=== PATIENT | male | born 1985 | race Caucasian/White ===

== ENCOUNTER 2021-04-25 18:06 | Inpatient (IN) | payer OTHER, SELFPAY ==
[2021-04-25] VITALS (10 sets, daily range): BP systolic 101–136; BP diastolic 60–81; PULSE 146–153; RESP 16–27; TEMP 37–37.2; O2SAT 95–100; BMI 21.5
--- NOTE | ~2021-04-25 | XR_ITS ---
EXAMINATION: XR CHEST CLINICAL INFORMATION: Question aspiration COMPARISON: None TECHNIQUE: Frontal view of the chest was obtained. FINDINGS: No significant abnormality is noted involving the heart, lungs, mediastinum, bony thorax or soft tissues. XR/XR chest 1V IMPRESSION: Unremarkable examination.
--- NOTE | ~2021-04-25 | CT_ITS ---
EXAMINATION: CT CHEST, ABDOMEN AND PELVIS WITHOUT CONTRAST CLINICAL INFORMATION: Reason for Exam ams COMPARISON: No pertinent prior studies are available for comparison. TECHNIQUE: Multidetector volumetric imaging was performed from the thoracic inlet through the pubic symphysis without IV contrast. Sagittal and coronal reformatted images were obtained on the technologist's workstation. This CT examination was performed using dose optimization techniques as appropriate, variously including the following: *Automated exposure control *Adjustment of mA and/or kV according to patient size (this includes techniques or standardized protocols for targeted exams where dose is matched to indication/reason for exam; i.e. extremities or head) *Use of iterative reconstruction technique DLP: 854 mGy-cm FINDINGS: CHEST: Lung: The lungs are clear without focal opacity or nodule. Some minimal right basilar atelectasis is present. Mediastinum: The mediastinum is unremarkable. The esophagus is fluid-filled. The central vascular structures are unremarkable. No hilar or mediastinal lymphadenopathy. Pericardium/Pleura: No significant effusion. No pleural mass or thickening. Chest Wall/Axilla: Unremarkable ABDOMEN/PELVIS: Peritoneal Space: No significant free air or free fluid identified. Liver, Gallbladder, Biliary Tree: The liver is enlarged measuring just under 19 cm in greatest length and demonstrates decreased attenuation consistent with hepatic steatosis. Normal in size, shape, and attenuation. No focal hepatic lesion or biliary ductal dilatation is present. The gallbladder is unremarkable with no evidence of radiopaque gallstones, gallbladder wall thickening, or obvious pericholecystic inflammatory changes. Pancreas: Unremarkable Spleen: Unremarkable Adrenal Glands: Unremarkable Kidneys and Ureters: The kidneys are normal in size, shape, and attenuation. No hydronephrosis, hydroureter, or calculi seen. No perinephric stranding. Bladder: Regan catheter is present in an empty bladder. Gastrointestinal Tract: There is thickening of the duodenum with some mild periduodenal inflammatory change possibly suggesting duodenitis. There is no evidence of perforation or periduodenal abscess. The small and large bowel are unremarkable. The appendix is unremarkable. Abdominal Wall: No significant hernia is appreciated. Lymph Nodes: Some small gastrohepatic ligament lymph nodes are seen the largest measuring 1.7 x 0.8 cm (13:195). No retroperitoneal lymphadenopathy. Vascular: The aorta appears normal.. The IVC appears unremarkable. PELVIC VISCERA: Unremarkable OSSEUS STRUCTURES: Mild degenerative changes are noted in the spine. No bony destructive lesions are seen. CT/CT abdomen pelvis wo con IMPRESSION: Enlarged fatty liver. Thickening of the duodenum with some mild periduodenal inflammatory change suggestive of duodenitis or possibly duodenal ulcer disease. Fleischner guidelines were followed.
--- NOTE | ~2021-04-25 | CT_ITS ---
EXAMINATION: CT HEAD WITHOUT CONTRAST CLINICAL INFORMATION: Altered mental status COMPARISON: None TECHNIQUE: Contiguous axial imaging was performed from the skull base to vertex without intravenous administration of contrast. This CT examination was performed using dose optimization techniques as appropriate, variously including the following: *Automated exposure control *Adjustment of mA and/or kV according to patient size (this includes techniques or standardized protocols for targeted exams where dose is matched to indication/reason for exam; i.e. extremities or head) *Use of iterative reconstruction technique DLP: 736 mGy-cm FINDINGS: No intra-axial or extra-axial hemorrhage. No acute territorial infarct. Ventricles and sulci appear normal. Preservation of baird-white matter differentiation. No mass, mass effect, or midline shift. No fracture. The mastoid air cells and visualized paranasal sinuses are clear. CT/CT head/brain wo con IMPRESSION: No acute intracranial pathology.
--- NOTE | 2021-04-25 18:27 | ECG_ITS ---
Test Reason : etoh Blood Pressure : / mmHG Vent. Rate : 149 BPM Atrial Rate : 153 BPM P-R Int : 096 ms QRS Dur : 078 ms QT Int : 348 ms P-R-T Axes : 000 071 057 degrees QTc Int : 548 ms Sinus tachycardia with short [place] Otherwise normal ECG No previous ECGs available Referred By: Sandy Morrell Electronically Signed By:Ryan Molina
--- NOTE | 2021-04-25 18:27 | ED_ITS ---
HPI - Alcohol General Chief Complaint: ETOH/Substance Use Stated Complaint: Multiple Complaints Time Seen by Provider: 04/25/21 21:10 Source: patient and EMS Mode of arrival: EMS Limitations: altered mental status History of Present Illness HPI narrative: 36-year-old male presents via EMS for evaluation. His friend called EMS to report that the patient was in distress, has vomit all over his house, multiple bottles of hard alcohol throughout his home. Patient is able to answer simple questions and follow simple directions but is a poor historian. Patient states that he feels like he is dying. MD complaint: alcohol withdrawal and alcohol dependence Last drink: Hours (ago) Chronic alcohol use: Yes Previous visits for alcohol intoxication: No Associated symptoms: nausea, vomiting, tremors and hematemesis Treatments prior to arrival: none Related Data Home Medications Medication Instructions Recorded Confirmed dextroamphetamine-amphetamine 20 0 - 3 tab PO DAILY PRN 04/25/21 04/25/21 mg tablet lorazepam 1 mg tablet 1 tab PO DAILY PRN 04/25/21 04/25/21 sildenafil (pulm.hypertension) 20 3 tab PO DAILY PRN 04/25/21 04/25/21 mg tablet trazodone 100 mg tablet 0 - 3 tab PO BEDTIME 04/25/21 04/25/21 Allergies Allergy/AdvReac Type Severity Reaction Status Date / Time No Known Allergies Allergy Verified 04/25/21 18:27 Review of Systems Review of Systems: Yes Unobtainable due to mental condition and Unobtainable due to mental status PMFSH Past Medical History Attestation statement: The following information was validated with the patient. Source: old records reviewed Medical History Anxiety Depressed Social History Social History Advance Directives: No Advance Directives Information Provided: No Physical Exam ED Vital Signs: Vital Signs - 24 hr 04/25/21 18:16 04/25/21 18:49 04/25/21 19:25 Temperature 98.6 F 98.8 F Pulse Rate 153 H 151 H 148 H Respiratory Rate 22 H 22 H 27 H Blood Pressure 120/73 104/61 101/68 Pulse Oximetry 97 97 97 04/25/21 20:14 04/25/21 21:12 04/25/21 21:23 Temperature 98.9 F Pulse Rate 148 H 150 H 153 H Respiratory Rate 20 16 27 H Blood Pressure 117/75 133/76 124/81 Pulse Oximetry 99 96 95 04/25/21 22:07 04/25/21 22:56 04/25/21 23:05 Temperature Pulse Rate 148 H 150 H 146 H Respiratory Rate 20 23 H 23 H Blood Pressure 132/76 130/71 130/67 Pulse Oximetry 99 97 100 BMI result Body Mass Index 21.5 Appearance: Alert. Oriented to self. Severe distress. Unkempt. Eyes: Pupils equal, round and reactive to light. Sclera nonicteric. ENT: Pharynx normal. Neck: Normal inspection. Neck supple. CVS: Tachycardic heart rate and rhythm. Pulses normal. Respiratory: No respiratory distress. Breath sounds normal. Abdomen: Soft and nontender. Skin: Skin warm and dry. Normal skin color. Normal skin turgor. Extremities: No lower extremity edema. Moves all extremities spontaneously. Neuro: No motor deficit. No sensory deficit. Cranial nerves 2-12 intact. Course Course Course Narrative: 36-year-old male presents via EMS, altered mental status most likely due to EtOH withdrawal, encephalopathy. Patient is answering simple questions appropriately. 19:00 patient continues tachycardia 140, blood pressure 131/80 to the right arm. He is alert and oriented to self at this time. Able to follow simple commands. Will order 2nd dose of Ativan 2 mg IV push. 21:10 labs indicate alcoholic ketoacidosis. ETOH 303, lactic acid 8.8, WBC 25.6, H&H 15.1/45.7, bicarb 7, anion gap 32, BUN 27. Lactated Ringer's switch t o D5 half normal saline bolus. Patient has had 1 L of saline and 1 L lactated Ringer's. Abnormal lab values most likely due to EtOH withdrawal, alcoholic encephalopathy versus alcohol acidosis. Multiple discussions with twine reeling machine operator, ICU PA, with multiple interventions. 23:36 repeat discussion with twine reeling machine operator, plan of care is to admit to ICU for lactic acidosis, ETOH withdrawal. Consultations Consultation #1: aRcheal Time: 21:30 Consultation #2: Racheal Time: 23:39 MDM - Alcohol Differential Diagnosis Differential diagnosis: Likely alcohol dependence, alcohol withdrawal delirium and hypomagnesemia Medical Records Attestation: I reviewed the patient's medical records. Lab Data Attestation: I reviewed the patient's lab results. Result diagrams: 04/25/21 20:38 04/25/21 22:59 Labs: Lab Results 04/25/21 04/25/21 04/25/21 Range/Units 19:08 19:09 19:10 WBC (4.8-10.8) X10*3/uL RBC (4.60-5.80) X10*6/uL Hgb (14.0-18.0) g/dl Hct (42.0-52.0) % MCV (80.0-98.0) fL MCH (27.0-33.0) pg MCHC (31.0-36.0) g/dl RDW (11.0-16.0) % Plt Count (160-400) X10*3/uL MPV (9.4-12.4) fL Immature Gran % (Auto) (0.0-0.4) % Neut % (Auto) (45-73) % Lymph % (Auto) (20-40) % [place] % (Auto) (2-11) % Eos % (Auto) (0-4) % Baso % (Auto) (0-2) % Lymph # (Auto) (1.2-4.9) X10*3/uL [place] # (Auto) (0.1-1.2) X10*3/uL Eos # (Auto) (0.0-0.4) X10*3/uL Baso # (Auto) (0.0-0.2) X10*3/uL Abs Immat Gran (auto) (0.00-0.03) X10*3/uL Absolute Neuts (auto) (2.0-8.3) x10*3/uL Absolute Nucleated RBC (0.0-0.012) X10*3/uL Nucleated RBC % (auto) (0.0-0.2) /100WBC Smear Tech's Comments PT 10.8 (9.9-13.0) SEC INR 1.0 (0.9-1.1) APTT 22.3 L (24.1-38.0) SEC VBG pH (7.32-7.43) VBG pCO2 mmHg VBG pO2 mmHg VBG HCO3 (22-26) mmol/L VBG O2 Saturation % VBG Base Excess mmol/L Sodium (135-145) mmol/L Potassium (3.3-5.1) mmol/L Chloride (96-108) mmol/L Carbon Dioxide (22-29) mmol/L Anion Gap (12-20) BUN (9-16) mg/dL Creatinine (0.5-1.4) mg/dL Estim Creat Clear Calc Estimated GFR POC Glucose 153 H (60-115) mg/dL Random Glucose (60-115) mg/dL Osmolality (281-305) mosm/kg Lactic Acid (0.5-2.0) mmol/L Lactic Acid F/U @ 2Hr (0.5-2.0) mmol/L Calcium (8.4-10.2) mg/dL Magnesium (1.6-2.6) mg/dL Total Bilirubin (0.0-1.0) mg/dL Direct Bilirubin (0.0-0.5) mg/dL AST (5-37) U/L ALT (0-40) U/L Alkaline Phosphatase (39-117) U/L Ammonia (13-55) umol/L Troponin I High Sens (<3.5-35.0) ng/L B-Natriuretic Peptide (<100) pg/mL Total Protein (6.5-8.0) g/dL Albumin (3.5-5.0) g/dL Lipase (8-78) U/L Urine Color Urine Appearance Urine pH (5.0-8.0) Ur Specific [place] (1.005-1.025) Urine Protein (NEG-TRACE) MG/DL Urine Glucose (UA) (NEG) MG/DL Urine Ketones (NEG) MG/DL Urine Blood (NEG) Urine Nitrite (NEG) Ur Leukocyte Esterase (NEG) Urine RBC (0) /HPF Urine WBC (0-4) /HPF Ur Squamous Epith Cells /LPF Urine Bacteria /LPF Hyaline Casts /LPF Granular Casts /LPF Urine Mucus /LPF Urine Osmolality (373-1093) mosm/kg Salicylates (15-30) mg/dL Urine Opiates Screen (Not Detect) Urine Fentanyl Screen (Not Detect) Acetaminophen (<30) mcg/mL Ur Barbiturates Screen (Not Detect) Ur Phencyclidine Scrn (Not Detect) Ur Amphetamines Screen (Not Detect) U Benzodiazepines Scrn (Not Detect) Urine Cocaine Screen (Not Detect) U Marijuana (THC) Screen (Not Detect) Ethyl Alcohol 303 H* mg/dL Acetone, Qual (Negative) COVID-19 ([facility]ERT) (Negative) COVID-19 Clin Com 04/25/21 04/25/21 04/25/21 Range/Units 20:27 20:38 20:38 WBC 25.6 H (4.8-10.8) X10*3/uL RBC 4.40 L (4.60-5.80) X10*6/uL Hgb 15.1 (14.0-18.0) g/dl Hct 45.7 (42.0-52.0) % MCV 103.9 H (80.0-98.0) fL MCH 34.3 H (27.0-33.0) pg MCHC 33.0 (31.0-36.0) g/dl RDW 13.2 (11.0-16.0) % Plt Count 423 H (160-400) X10*3/uL MPV 9.4 (9.4-12.4) fL Immature Gran % (Auto) 0.5 H (0.0-0.4) % Neut % (Auto) 90.4 H (45-73) % Lymph % (Auto) 2.3 L (20-40) % [place] % (Auto) 6.7 (2-11) % Eos % (Auto) 0.0 (0-4) % Baso % (Auto) 0.1 (0-2) % Lymph # (Auto) 0.6 L (1.2-4.9) X10*3/uL [place] # (Auto) 1.7 H (0.1-1.2) X10*3/uL Eos # (Auto) 0.0 (0.0-0.4) X10*3/uL Baso # (Auto) 0.0 (0.0-0.2) X10*3/uL Abs Immat Gran (auto) 0.13 H (0.00-0.03) X10*3/uL Absolute Neuts (auto) 23.1 H (2.0-8.3) x10*3/uL Absolute Nucleated RBC 0.000 (0.0-0.012) X10*3/uL Nucleated RBC % (auto) 0.0 (0.0-0.2) /100WBC Smear Tech's Comments VERIFIED PT (9.9-13.0) SEC INR (0.9-1.1) APTT (24.1-38.0) SEC VBG pH (7.32-7.43) VBG pCO2 mmHg VBG pO2 mmHg VBG HCO3 (22-26) mmol/L VBG O2 Saturation % VBG Base Excess mmol/L Sodium 136 (135-145) mmol/L Potassium 4.4 (3.3-5.1) mmol/L Chloride 101 (96-108) mmol/L Carbon Dioxide 7 L* (22-29) mmol/L Anion Gap 32 H (12-20) BUN 27 H (9-16) mg/dL Creatinine 0.95 (0.5-1.4) mg/dL Estim Creat Clear Calc 101.4 Estimated GFR > 60 POC Glucose (60-115) mg/dL Random Glucose 158 H (60-115) mg/dL Osmolality (281-305) mosm/kg Lactic Acid (0.5-2.0) mmol/L Lactic Acid F/U @ 2Hr (0.5-2.0) mmol/L Calcium 8.1 L (8.4-10.2) mg/dL Magnesium 2.1 (1.6-2.6) mg/dL Total Bilirubin 0.6 (0.0-1.0) mg/dL Direct Bilirubin 0.3 (0.0-0.5) mg/dL AST 66 H (5-37) U/L ALT 50 H (0-40) U/L Alkaline Phosphatase 71 (39-117) U/L Ammonia (13-55) umol/L Troponin I High Sens (<3.5-35.0) ng/L B-Natriuretic Peptide (<100) pg/mL Total Protein 5.9 L (6.5-8.0) g/dL Albumin 3.7 (3.5-5.0) g/dL Lipase 29 (8-78) U/L Urine Color Urine Appearance Urine pH (5.0-8.0) Ur Specific [place] (1.005-1.025) Urine Protein (NEG-TRACE) MG/DL Urine Glucose (UA) (NEG) MG/DL Urine Ketones (NEG) MG/DL Urine Blood (NEG) Urine Nitrite (NEG) Ur Leukocyte Esterase (NEG) Urine RBC (0) /HPF Urine WBC (0-4) /HPF Ur Squamous Epith Cells /LPF Urine Bacteria /LPF Hyaline Casts /LPF Granular Casts /LPF Urine Mucus /LPF Urine Osmolality (373-1093) mosm/kg Salicylates < 5.0 L (15-30) mg/dL Urine Opiates Screen (Not Detect) Urine Fentanyl Screen (Not Detect) Acetaminophen < 1 (<30) mcg/mL Ur Barbiturates Screen (Not Detect) Ur Phencyclidine Scrn (Not Detect) Ur Amphetamines Screen (Not Detect) U Benzodiazepines Scrn (Not Detect) Urine Cocaine Screen (Not Detect) U Marijuana (THC) Screen (Not Detect) Ethyl Alcohol mg/dL Acetone, Qual Negative (Negative) COVID-19 (ROBERT) Negative (Negative) COVID-19 Clin Com See Note 04/25/21 04/25/21 04/25/21 Range/Units 20:38 20:38 20:38 WBC (4.8-10.8) X10*3/uL RBC (4.60-5.80) X10*6/uL Hgb (14.0-18.0) g/dl Hct (42.0-52.0) % MCV (80.0-98.0) fL MCH (27.0-33.0) pg MCHC (31.0-36.0) g/dl RDW (11.0-16.0) % Plt Count (160-400) X10*3/uL MPV (9.4-12.4) fL Immature Gran % (Auto) (0.0-0.4) % Neut % (Auto) (45-73) % Lymph % (Auto) (20-40) % [place] % (Auto) (2-11) % Eos % (Auto) (0-4) % Baso % (Auto) (0-2) % Lymph # (Auto) (1.2-4.9) X10*3/uL [place] # (Auto) (0.1-1.2) X10*3/uL Eos # (Auto) (0.0-0.4) X10*3/uL Baso # (Auto) (0.0-0.2) X10*3/uL Abs Immat Gran (auto) (0.00-0.03) X10*3/uL Absolute Neuts (auto) (2.0-8.3) x10*3/uL Absolute Nucleated RBC (0.0-0.012) X10*3/uL Nucleated RBC % (auto) (0.0-0.2) /100WBC Smear Tech's Comments PT (9.9-13.0) SEC INR (0.9-1.1) APTT (24.1-38.0) SEC VBG pH (7.32-7.43) VBG pCO2 mmHg VBG pO2 mmHg VBG HCO3 (22-26) mmol/L VBG O2 Saturation % VBG Base Excess mmol/L Sodium (135-145) mmol/L Potassium (3.3-5.1) mmol/L Chloride (96-108) mmol/L Carbon Dioxide (22-29) mmol/L Anion Gap (12-20) BUN (9-16) mg/dL Creatinine (0.5-1.4) mg/dL Estim Creat Clear Calc Estimated GFR POC Glucose (60-115) mg/dL Random Glucose (60-115) mg/dL Osmolality (281-305) mosm/kg Lactic Acid 8.8 H* (0.5-2.0) mmol/L Lactic Acid F/U @ 2Hr (0.5-2.0) mmol/L Calcium (8.4-10.2) mg/dL Magnesium (1.6-2.6) mg/dL Total Bilirubin (0.0-1.0) mg/dL Direct Bilirubin (0.0-0.5) mg/dL AST (5-37) U/L ALT (0-40) U/L Alkaline Phosphatase (39-117) U/L Ammonia 50 (13-55) umol/L Troponin I High Sens < 3.5 (<3.5-35.0) ng/L B-Natriuretic Peptide 14 (<100) pg/mL Total Protein (6.5-8.0) g/dL Albumin (3.5-5.0) g/dL Lipase (8-78) U/L Urine Color Urine Appearance Urine pH (5.0-8.0) Ur Specific [place] (1.005-1.025) Urine Protein (NEG-TRACE) MG/DL Urine Glucose (UA) (NEG) MG/DL Urine Ketones (NEG) MG/DL Urine Blood (NEG) Urine Nitrite (NEG) Ur Leukocyte Esterase (NEG) Urine RBC (0) /HPF Urine WBC (0-4) /HPF Ur Squamous Epith Cells /LPF Urine Bacteria /LPF Hyaline Casts /LPF Granular Casts /LPF Urine Mucus /LPF Urine Osmolality (373-1093) mosm/kg Salicylates (15-30) mg/dL Urine Opiates Screen (Not Detect) Urine Fentanyl Screen (Not Detect) Acetaminophen (<30) mcg/mL Ur Barbiturates Screen (Not Detect) Ur Phencyclidine Scrn (Not Detect) Ur Amphetamines Screen (Not Detect) U Benzodiazepines Scrn (Not Detect) Urine Cocaine Screen (Not Detect) U Marijuana (THC) Screen (Not Detect) Ethyl Alcohol mg/dL Acetone, Qual (Negative) COVID-19 ([facility]OBERT) (Negative) COVID-19 Clin Com 04/25/21 04/25/21 04/25/21 Range/Units 20:38 21:19 21:29 WBC (4.8-10.8) X10*3/uL RBC (4.60-5.80) X10*6/uL Hgb (14.0-18.0) g/dl Hct (42.0-52.0) % MCV (80.0-98.0) fL MCH (27.0-33.0) pg MCHC (31.0-36.0) g/dl RDW (11.0-16.0) % Plt Count (160-400) X10*3/uL MPV (9.4-12.4) fL Immature Gran % (Auto) (0.0-0.4) % Neut % (Auto) (45-73) % Lymph % (Auto) (20-40) % [place] % (Auto) (2-11) % Eos % (Auto) (0-4) % Baso % (Auto) (0-2) % Lymph # (Auto) (1.2-4.9) X10*3/uL [place] # (Auto) (0.1-1.2) X10*3/uL Eos # (Auto) (0.0-0.4) X10*3/uL Baso # (Auto) (0.0-0.2) X10*3/uL Abs Immat Gran (auto) (0.00-0.03) X10*3/uL Absolute Neuts (auto) (2.0-8.3) x10*3/uL Absolute Nucleated RBC (0.0-0.012) X10*3/uL Nucleated RBC % (auto) (0.0-0.2) /100WBC Smear Tech's Comments PT (9.9-13.0) SEC INR (0.9-1.1) APTT (24.1-38.0) SEC VBG pH 7.28 L (7.32-7.43) VBG pCO2 24 mmHg VBG pO2 89 mmHg VBG HCO3 11 L (22-26) mmol/L VBG O2 Saturation 96.0 % VBG Base Excess -12.7 mmol/L Sodium (135-145) mmol/L Potassium (3.3-5.1) mmol/L Chloride (96-108) mmol/L Carbon Dioxide (22-29) mmol/L Anion Gap (12-20) BUN (9-16) mg/dL Creatinine (0.5-1.4) mg/dL Estim Creat Clear Calc Estimated GFR POC Glucose (60-115) mg/dL Random Glucose (60-115) mg/dL Osmolality 373 H (281-305) mosm/kg Lactic Acid (0.5-2.0) mmol/L Lactic Acid F/U @ 2Hr (0.5-2.0) mmol/L Calcium (8.4-10.2) mg/dL Magnesium (1.6-2.6) mg/dL Total Bilirubin (0.0-1.0) mg/dL Direct Bilirubin (0.0-0.5) mg/dL AST (5-37) U/L ALT (0-40) U/L Alkaline Phosphatase (39-117) U/L Ammonia 47 (13-55) umol/L Troponin I High Sens (<3.5-35.0) ng/L B-Natriuretic Peptide (<100) pg/mL Total Protein (6.5-8.0) g/dL Albumin (3.5-5.0) g/dL Lipase (8-78) U/L Urine Color Urine Appearance Urine pH (5.0-8.0) Ur Specific [place] (1.005-1.025) Urine Protein (NEG-TRACE) MG/DL Urine Glucose (UA) (NEG) MG/DL Urine Ketones (NEG) MG/DL Urine Blood (NEG) Urine Nitrite (NEG) Ur Leukocyte Esterase (NEG) Urine RBC (0) /HPF Urine WBC (0-4) /HPF Ur Squamous Epith Cells /LPF Urine Bacteria /LPF Hyaline Casts /LPF Granular Casts /LPF Urine Mucus /LPF Urine Osmolality (373-1093) mosm/kg Salicylates (15-30) mg/dL Urine Opiates Screen (Not Detect) Urine Fentanyl Screen (Not Detect) Acetaminophen (<30) mcg/mL Ur Barbiturates Screen (Not Detect) Ur Phencyclidine Scrn (Not Detect) Ur Amphetamines Screen (Not Detect) U Benzodiazepines Scrn (Not Detect) Urine Cocaine Screen (Not Detect) U Marijuana (THC) Screen (Not Detect) Ethyl Alcohol mg/dL Acetone, Qual (Negative) COVID-19 ([facility]OBERT) (Negative) COVID-19 Clin Com 04/25/21 04/25/21 04/25/21 Range/Units 21:39 21:39 21:40 WBC (4.8-10.8) X10*3/uL RBC (4.60-5.80) X10*6/uL Hgb (14.0-18.0) g/dl Hct (42.0-52.0) % MCV (80.0-98.0) fL MCH (27.0-33.0) pg MCHC (31.0-36.0) g/dl RDW (11.0-16.0) % Plt Count (160-400) X10*3/uL MPV (9.4-12.4) fL Immature Gran % (Auto) (0.0-0.4) % Neut % (Auto) (45-73) % Lymph % (Auto) (20-40) % [place] % (Auto) (2-11) % Eos % (Auto) (0-4) % Baso % (Auto) (0-2) % Lymph # (Auto) (1.2-4.9) X10*3/uL [place] # (Auto) (0.1-1.2) X10*3/uL Eos # (Auto) (0.0-0.4) X10*3/uL Baso # (Auto) (0.0-0.2) X10*3/uL Abs Immat Gran (auto) (0.00-0.03) X10*3/uL Absolute Neuts (auto) (2.0-8.3) x10*3/uL Absolute Nucleated RBC (0.0-0.012) X10*3/uL Nucleated RBC % (auto) (0.0-0.2) /100WBC Smear Tech's Comments PT (9.9-13.0) SEC INR (0.9-1.1) APTT (24.1-38.0) SEC VBG pH (7.32-7.43) VBG pCO2 mmHg VBG pO2 mmHg VBG HCO3 (22-26) mmol/L VBG O2 Saturation % VBG Base Excess mmol/L Sodium (135-145) mmol/L Potassium (3.3-5.1) mmol/L Chloride (96-108) mmol/L Carbon Dioxide (22-29) mmol/L Anion Gap (12-20) BUN (9-16) mg/dL Creatinine (0.5-1.4) mg/dL Estim Creat Clear Calc Estimated GFR POC Glucose (60-115) mg/dL Random Glucose (60-115) mg/dL Osmolality (281-305) mosm/kg Lactic Acid (0.5-2.0) mmol/L Lactic Acid F/U @ 2Hr (0.5-2.0) mmol/L Calcium (8.4-10.2) mg/dL Magnesium (1.6-2.6) mg/dL Total Bilirubin (0.0-1.0) mg/dL Direct Bilirubin (0.0-0.5) mg/dL AST (5-37) U/L ALT (0-40) U/L Alkaline Phosphatase (39-117) U/L Ammonia (13-55) umol/L Troponin I High Sens (<3.5-35.0) ng/L B-Natriuretic Peptide (<100) pg/mL Total Protein (6.5-8.0) g/dL Albumin (3.5-5.0) g/dL Lipase (8-78) U/L Urine Color YELLOW Urine Appearance CLEAR Urine pH 6.0 (5.0-8.0) Ur Specific [place] >= 1.030 H (1.005-1.025) Urine Protein NEG (NEG-TRACE) MG/DL Urine Glucose (UA) NEG (NEG) MG/DL Urine Ketones 40 (NEG) MG/DL Urine Blood TRACE (NEG) Urine Nitrite NEG (NEG) Ur Leukocyte Esterase NEG (NEG) Urine RBC 5-9 H (0) /HPF Urine WBC 1-4 (0-4) /HPF Ur Squamous Epith Cells 1+ /LPF Urine Bacteria 1+ /LPF Hyaline Casts 5-9 /LPF Granular Casts 0-2 /LPF Urine Mucus 2+ /LPF Urine Osmolality 629 (373-1093) mosm/kg Salicylates (15-30) mg/dL Urine Opiates Screen Not Detected (Not Detect) Urine Fentanyl Screen Not Detected (Not Detect) Acetaminophen (<30) mcg/mL Ur Barbiturates Screen Not Detected (Not Detect) Ur Phencyclidine Scrn Not Detected (Not Detect) Ur Amphetamines Screen Not Detected (Not Detect) U Benzodiazepines Scrn Not Detected (Not Detect) Urine Cocaine Screen Not Detected (Not Detect) U Marijuana (THC) Screen Not Detected (Not Detect) Ethyl Alcohol mg/dL Acetone, Qual (Negative) COVID-19 ([facility]OBERT) (Negative) COVID-19 Clin Com 04/25/21 04/25/21 Range/Units 22:59 22:59 WBC (4.8-10.8) X10*3/uL RBC (4.60-5.80) X10*6/uL Hgb (14.0-18.0) g/dl Hct (42.0-52.0) % MCV (80.0-98.0) fL MCH (27.0-33.0) pg MCHC (31.0-36.0) g/dl RDW (11.0-16.0) % Plt Count (160-400) X10*3/uL MPV (9.4-12.4) fL Immature Gran % (Auto) (0.0-0.4) % Neut % (Auto) (45-73) % Lymph % (Auto) (20-40) % [place] % (Auto) (2-11) % Eos % (Auto) (0-4) % Baso % (Auto) (0-2) % Lymph # (Auto) (1.2-4.9) X10*3/uL [place] # (Auto) (0.1-1.2) X10*3/uL Eos # (Auto) (0.0-0.4) X10*3/uL Baso # (Auto) (0.0-0.2) X10*3/uL Abs Immat Gran (auto) (0.00-0.03) X10*3/uL Absolute Neuts (auto) (2.0-8.3) x10*3/uL Absolute Nucleated RBC (0.0-0.012) X10*3/uL Nucleated RBC % (auto) (0.0-0.2) /100WBC Smear Tech's Comments PT (9.9-13.0) SEC INR (0.9-1.1) APTT (24.1-38.0) SEC VBG pH (7.32-7.43) VBG pCO2 mmHg VBG pO2 mmHg VBG HCO3 (22-26) mmol/L VBG O2 Saturation % VBG Base Excess mmol/L Sodium 135 (135-145) mmol/L Potassium 3.9 (3.3-5.1) mmol/L Chloride 100 (96-108) mmol/L Carbon Dioxide 19 L (22-29) mmol/L Anion Gap 20 (12-20) BUN 25 H (9-16) mg/dL Creatinine 0.80 (0.5-1.4) mg/dL Estim Creat Clear Calc 120.4 Estimated GFR > 60 POC Glucose (60-115) mg/dL Random Glucose 301 H D (60-115) mg/dL Osmolality (281-305) mosm/kg Lactic Acid (0.5-2.0) mmol/L Lactic Acid F/U @ 2Hr 5.4 H* (0.5-2.0) mmol/L Calcium 7.3 L D (8.4-10.2) mg/dL Magnesium (1.6-2.6) mg/dL Total Bilirubin (0.0-1.0) mg/dL Direct Bilirubin (0.0-0.5) mg/dL AST (5-37) U/L ALT (0-40) U/L Alkaline Phosphatase (39-117) U/L Ammonia (13-55) umol/L Troponin I High Sens (<3.5-35.0) ng/L B-Natriuretic Peptide (<100) pg/mL Total Protein (6.5-8.0) g/dL Albumin (3.5-5.0) g/dL Lipase (8-78) U/L Urine Color Urine Appearance Urine pH (5.0-8.0) Ur Specific [place] (1.005-1.025) Urine Protein (NEG-TRACE) MG/DL Urine Glucose (UA) (NEG) MG/DL Urine Ketones (NEG) MG/DL Urine Blood (NEG) Urine Nitrite (NEG) Ur Leukocyte Esterase (NEG) Urine RBC (0) /HPF Urine WBC (0-4) /HPF Ur Squamous Epith Cells /LPF Urine Bacteria /LPF Hyaline Casts /LPF Granular Casts /LPF Urine Mucus /LPF Urine Osmolality (373-1093) mosm/kg Salicylates (15-30) mg/dL Urine Opiates Screen (Not Detect) Urine Fentanyl Screen (Not Detect) Acetaminophen (<30) mcg/mL Ur Barbiturates Screen (Not Detect) Ur Phencyclidine Scrn (Not Detect) Ur Amphetamines Screen (Not Detect) U Benzodiazepines Scrn (Not Detect) Urine Cocaine Screen (Not Detect) U Marijuana (THC) Screen (Not Detect) Ethyl Alcohol mg/dL Acetone, Qual (Negative) COVID-19 ([facility]OBERT) (Negative) COVID-19 Clin Com Imaging Data Chest x-ray: Attestation: I personally reviewed and interpreted this imaging study as follows: Radiologist's impression: EXAMINATION: XR CHEST CLINICAL INFORMATION: Question aspiration COMPARISON: None TECHNIQUE: Frontal view of the chest was obtained. FINDINGS: No significant abnormality is noted involving the heart, lungs, mediastinum, bony thorax or soft tissues. XR/XR chest 1V IMPRESSION: Unremarkable examination. CT scan - head: Attestation: I personally reviewed and interpreted this imaging study as follows: Radiologist's impression: EXAMINATION: CT HEAD WITHOUT CONTRAST CLINICAL INFORMATION: Altered mental status? COMPARISON: None TECHNIQUE: Contiguous axial imaging was performed from the skull base to vertex without intravenous administration of contrast. This CT examination was performed using dose optimization techniques as appropriate, variously including the following: *Automated exposure control *Adjustment of mA and/or kV according to patient size (this includes techniques or standardized protocols for targeted exams where dose is matched to indication/reason for exam; i.e. extremities or head) *Use of iterative reconstruction technique DLP: 736 mGy-cm FINDINGS: No intra-axial or extra-axial hemorrhage. No acute territorial infarct. Ventricles and sulci appear normal. Preservation of baird-white matter differentiation. No mass, mass effect, or midline shift. No fracture. The mastoid air cells and visualized paranasal sinuses are clear. ? CT/CT head/brain wo con IMPRESSION: No acute intracranial pathology. ECG Data ECG #1: Attestation: I personally reviewed and interpreted this ECG as follows: ECG interpretation date: 04/25/21 ECG interpretation time: 18:35 Prior ECG tracings: not available for review Interpretation: Vent. rate 149 BPM DC interval 96 ms QRS duration 78 ms QT/QTc 348/548 ms P-R-T axes * 71 57 Sinus tachycardia with short DC Otherwise normal ECG No previous ECGs available Critical Care Time Critical Care Time Critical Care Time: Yes Total Critical Care Time: 120 Attestation: I have personally provided critical care time exclusive of time spent on separately billable procedures. Time includes review of laboratory data, radiology results, discussion with consultants, and monitoring for potential decompensation. Interventions were performed as documented. Discharge Plan Discharge Clinical Impression: Alcohol withdrawal syndrome, Alcohol withdrawal delirium, Alcoholic ketoacidosis Prescriptions: No Action trazodone 100 mg tablet 0 - 3 tab PO BEDTIME 0RF dextroamphetamine-amphetamine 20 mg tablet 0 - 3 tab PO DAILY PRN (Reason: Agitation) 0RF lorazepam 1 mg tablet 1 tab PO DAILY PRN (Reason: anxiety attack) 0RF sildenafil (pulm.hypertension) 20 mg tablet 3 tab PO DAILY PRN (Reason: Sexual Activity) 0RF
[2021-04-25] MEDS: LORazepam 2 MG/ML VIAL 1 MG IVPUSH ×2 (18:36→18:37)
[2021-04-25] MEDS: 0.9 % Sodium Chloride 1,000 ML 999 ML IVCONT (18:36)
[2021-04-25] MEDS: ondansetron HCL 4 MG/2 ML VIAL IVPUSH (18:37)
--- NOTE | 2021-04-25 18:38 | PC.NURSE ---
FIELD ENGINEER originally ordered 1mg iv push Ativan for patient. after med pulled change mind and told RN to give 2 mg. additional order placed for 1 mg Ativan iv push. patient given 2 mg from vial pulled in pyxis.
--- NOTE | 2021-04-25 18:56 | PHA.MEDREC ---
Pharmacy Consult ? Medication Reconciliation Pharmacy has completed the medication reconciliation. Patient states he hasn't taken any medications in a few days.
[2021-04-25 19:13] LABS: Glucose, Whole Blood 153 mg/dL (60-115)
[2021-04-25] MEDS: LORazepam 2 MG/ML VIAL IVPUSH (19:23)
[2021-04-25 19:26] LABS: Prothrombin Time 10.8 SEC (9.9-13.0)
[2021-04-25 19:32] LABS: Partial Thromboplastin Time 22.3 SEC (24.1-38.0)
[2021-04-25] MEDS: Lactated Ringers 1,000 ML 999 ML IV ×2 (19:41→23:12)
--- NOTE | 2021-04-25 19:56 | PC.NURSE ---
RN assumed care at 1899, pt alert and oriented x3, confused to date. Pt calm and cooperative, noted to be restless intermittently in bed. CIWA at 190 is 6. Pt had IV in place from EMS per last shift RN. Dex Wilkinson attempted to draw blood work at 1899, some vile's were hemolytic and unsuccessful in obtaining further lab work due to patient being difficult stick. This RN attempted to obtain lab work and unsuccessful due to difficult stick. semiconductor wafers tester Sonia called RN endless track vehicle supervisor for butterfly needles at 1914, none in ER at this time. Butterfly needles brought to ER at 1999, Dex Wilkinson attempting lab draw with butterfly needle at 1999.
[2021-04-25 19:59] LABS: Ethanol 303 mg/dL
[2021-04-25] MEDS: PHENobarbitaL sodium 130 MG/ML VIAL 326 MG IM (20:09)
[2021-04-25 20:43] LABS: Basophils Percent Auto 0.1 % (0-2); Hematocrit 45.7 % (42.0-52.0); Hemoglobin 15.1 g/dl (14.0-18.0); Imm Gran Abs Auto 0.13 X10*3/uL (0.00-0.03); Imm Gran Pct Auto 0.5 % (0.0-0.4); Lymphocytes Absolute Auto 0.6 X10*3/uL (1.2-4.9); Lymphocytes Percent Auto 2.3 % (20-40); MANUAL DIFF FLAG SCAN; Mean Corpuscular Hemoglobin 34.3 pg (27.0-33.0); Mean Corpuscular Volume 103.9 fL (80.0-98.0); Mean Platelet Volume 9.4 fL (9.4-12.4); Monocytes Absolute Auto 1.7 X10*3/uL (0.1-1.2); Monocytes Percent Auto 6.7 % (2-11); Neutrophils Absolute Auto 23.1 x10*3/uL (2.0-8.3); Neutrophils Percent Auto 90.4 % (45-73); Platelet Count 423 X10*3/uL (160-400); Red Cell Distribution Width 13.2 % (11.0-16.0); SCAN SMEAR FLAG 1; White Blood Count 25.6 X10*3/uL (4.8-10.8)
[2021-04-25 20:51] LABS: COVID-19 Test Negative (Negative); IDNOW Serial# 16C4AD1C
[2021-04-25 20:53] LABS: Ammonia 50 umol/L (13-55)
[2021-04-25 21:01] LABS: SLIDE REVIEW VERIFIED
[2021-04-25 21:02] LABS: Alanine Aminotransferase 50 U/L (0-40); Albumin Level 3.7 g/dL (3.5-5.0); Alkaline Phosphatase 71 U/L (39-117); Anion Gap 32 (12-20); Aspartate Amino Transferase 66 U/L (5-37); Bilirubin Direct 0.3 mg/dL (0.0-0.5); Bilirubin Total 0.6 mg/dL (0.0-1.0); Blood Urea Nitrogen 27 mg/dL (9-16); Calcium 8.1 mg/dL (8.4-10.2); Carbon Dioxide 7 mmol/L (22-29); Chloride 101 mmol/L (96-108); Creatinine Clr Calc Pharmacy 101.4; Estimated Glomerular Filt Rate > 60; Glucose Random 158 mg/dL (60-115); Lactic Acid 8.8 mmol/L (0.5-2.0); Lipase 29 U/L (8-78); Magnesium 2.1 mg/dL (1.6-2.6); Potassium 4.4 mmol/L (3.3-5.1); Sodium 136 mmol/L (135-145); Total Protein 5.9 g/dL (6.5-8.0)
[2021-04-25 21:17] LABS: Acetone, serum QL Negative (Negative)
[2021-04-25] MEDS: Sodium Bicarbonate 8.4% 50 MEQ/50 ML SYRINGE IVPUSH ×2 (21:19→22:39)
[2021-04-25] MEDS: Thiamine HCL 500 MG in 0.9 % Sodium Chloride 100 ML 210 MG IV (21:21)
[2021-04-25] MEDS: Dextrose 5 % and 0.45 % NaCl 1,000 ML 999 ML IVCONT (21:27)
[2021-04-25] MEDS: Folic Acid 1 MG TABLET PO (21:30)
[2021-04-25 21:35] LABS: Venous Blood Gas Refer to POC result
[2021-04-25 21:35] LABS: Troponin-I High Sensitivity < 3.5 ng/L (<3.5-35.0)
[2021-04-25 21:37] LABS: VBG Base Excess -12.7 mmol/L; VBG HCO3 11 mmol/L (22-26); VBG pCO2 24 mmHg; VBG pH 7.28 (7.32-7.43); VBG pO2 89 mmHg
[2021-04-25 21:41] LABS: Acetaminophen LAB < 1 mcg/mL (<30); Salicylate < 5.0 mg/dL (15-30)
[2021-04-25 21:44] LABS: B Type Natriuretic Peptide 14 pg/mL (<100)
[2021-04-25 21:50] LABS: Appearance Urine CLEAR; Color Urine YELLOW; Glucose Urine UA NEG (NEG); Leukocyte Esterase Urine NEG (NEG); Nitrite Urine NEG (NEG); Specific Gravity - Urine >= 1.030 (1.005-1.025); UACC Culture Trigger NO; Urine Blood TRACE (NEG); Urine Ketones 40 MG/DL (NEG); Urine Protein NEG (NEG-TRACE)
[2021-04-25 21:53] LABS: Osmolality, Serum 373 mosm/kg (281-305)
[2021-04-25 21:54] LABS: Ammonia 47 umol/L (13-55)
[2021-04-25 22:05] LABS: Osmolality Urine 629 mosm/kg (373-1093)
[2021-04-25 22:06] LABS: Amphetamine Screen Urine Not Detected (Not Detect); Barbiturates, Urine Not Detected (Not Detect); Benzodiazepines Screen Urine Not Detected (Not Detect); Cannabinoid Screen Urine Not Detected (Not Detect); Cocaine Screen Urine Not Detected (Not Detect); Fentanyl, urine Not Detected (Not Detect); Opiate Screen Urine Not Detected (Not Detect); Phencyclidine Screen Urine Not Detected (Not Detect)
--- NOTE | 2021-04-25 22:11 | PC.NURSE ---
PATIENT OUT PUT WAS 1600 ML
--- NOTE | 2021-04-25 22:12 | PC.NURSE ---
PATIENT OUT PUT WAS 1600 ML .
[2021-04-25 22:13] LABS: Bacteria Urine 1+ /LPF; Granular Casts Urine 0-2 /LPF; Mucus Urine 2+ /LPF; Squamous Epithelial Cell Urine 1+ /LPF
[2021-04-25 22:40] LABS: Reflex Lactate? Lactic Acid Added
[2021-04-25] MEDS: Piperacillin Sodium/Tazobactam 3.375 GM in 0.9 % Sodium Chloride 50 ML IV (22:59)
[2021-04-25 23:24] LABS: Anion Gap 20 (12-20); Blood Urea Nitrogen 25 mg/dL (9-16); Calcium 7.3 mg/dL (8.4-10.2); Carbon Dioxide 19 mmol/L (22-29); Chloride 100 mmol/L (96-108); Creatinine Clr Calc Pharmacy 120.4; Estimated Glomerular Filt Rate > 60; Glucose Random 301 mg/dL (60-115); Potassium 3.9 mmol/L (3.3-5.1); Sodium 135 mmol/L (135-145)
[2021-04-25 23:25] LABS: ~Lactic Acid-LAB USE ONLY 5.4 mmol/L (0.5-2.0)
[2021-04-25] MEDS: vancomycin HCL 750 MG in 0.9 % Sodium Chloride 250 ML 265 MG IV (23:43)
[2021-04-25] MEDS: PHENobarbitaL sodium 130 MG/ML VIAL 245 MG IM (23:49)
--- NOTE | 2021-04-25 23:58 | P.HPCC_ITS ---
History of Present Illness Date of Service: 04/25/21 Attending physician on admission: Virginia Springer Chief Complaint: alcohol withdrawal Patient is a 36-year-old male within no known past medical history who was brought in by ambulance after his friend found him in his home, disheveled, vomit all over the place, multiple heart alcohol bottles strewn about his home. Patient is unable to recall when his last drink was but he does state he did have a withdrawal seizure approximately 10 years ago. He is alert and oriented x3 but rambles on with his answers, usually making sense but definitely a little confused. Patient states he feels like he is dying . Patient actively vomi angela once during my exam. In the emergency department, labs showed the patient had a WBC 25.6, APTT 22.3, bicarb 7, serum osmol 373, lactic acid 8.8, ammonia 50, AST 66, ALT 50, urine osmolality 629, acetone negative, ETOH 33, U tox negative, salicylates and acetaminophen negative, UA neg for infection. VBG 7.28/24/89/11/96/-12.7, EKG sinus tach at 149BPM with short [place] 096ms. CIWA 15. CT of the head, chest and abdomen Enlarged fatty liver. Thickening of the duodenum with some mild periduodenal inflammatory change suggestive of duodenitis or possibly duodenal ulcer disease . In the emergency department, patient was giving in 4 mg lorazepam, started on phenobarb protocol, Zofran, 3L LR, 50 meq sodium bicarb, 1 L D5 1/2 NS, 1 mg folic acid, 500 mg thiamine, vanco and Zosyn however patient does not appear sepic. Repeat metabolic panel showed bicarb improved up to 19, lactic acid down to 5.4. Elevated lactic likely 2/2 post ictal period, pt does not appear to be septic, no source of infection. Discussed case with Dr. Springer, he agreed patient should be admitted, he is actively withdrawing although his alcohol level is still very high. Will hold off on intubation and less patient becomes truly delirious, as of now, he is safe to maintain his airway. Will start on Versed drip to control withdrawal symptoms/avoid seizure. Review of Systems Review of Systems: Yes all other systems are reviewed and are negative PMFSH Past Medical History Medical History Anxiety Depressed Social History Social History Household Members: None Housing: House Do you presently have visiting nurse or other home services: No Unable to assess alcohol history related to: Unable to respond Patient Tobacco Use Status: Tobacco use Unknown Use of substances other than those prescribed or required for medical reasons: Unknown Advance Directives: No Advance Directives Information Provided: No Do you have thoughts of harming others: None Do you have a plan to hurt others: No Plan Recently lost weight without trying: Unsure Nutrition Risks: On aspiration precautions Poor oral hygiene: Yes Meds Allergies Allergy/AdvReac Type Severity Reaction Status Date / Time No Known Allergies Allergy Verified 04/25/21 18:27 Active Medications: Current Medications Enoxaparin Sodium (Enoxaparin Sodium 40 Mg/0.4 Ml Syringe) 40 mg SUBCUT Q24H CAROL Lactated Ringer's (Lr) 1,000 mls @ 100 mls/hr IVCONT .Q10H CAROL Midazolam HCl (Versed) 50 mg in 50 mls @ 2 mls/hr IVCONT .Q24H CAROL Medication (No Benzodiazepines) 1 each MISCELLANE DAILY [facility] Ondansetron HCl (Ondansetron Hcl 4 Mg/2 Ml Vial) 4 mg IVPUSH Q8H PRN PRN Reason: Nausea Phenobarbital (Phenobarbital 15 Mg Tablet) 45 mg PO BID [facility] Stop: 04/27/21 21:01 Phenobarbital (Phenobarbital 30 Mg Tablet) 30 mg PO BID [facility] Stop: 04/29/21 21:01 Phenobarbital (Phenobarbital 15 Mg Tablet) 15 mg PO DAILY [facility] Stop: 05/01/21 09:01 Phenobarbital Sodium (Phenobarbital Sodium 130 Mg/Ml Vial) 245 mg IM 0000,[id number] [facility] Stop: 04/26/21 03:01 Last Admin: 04/25/21 23:49 Dose: 245 mg Documented by: Home Medications Medication Instructions Recorded Confirmed Last Taken Type dextroamphetamine-amphetamine 20 0 - 3 tab PO DAILY PRN 04/25/21 04/25/21 Unknown History mg tablet lorazepam 1 mg tablet 1 tab PO DAILY PRN 04/25/21 04/25/21 Unknown History sildenafil (pulm.hypertension) 20 3 tab PO DAILY PRN 04/25/21 04/25/21 Unknown History mg tablet trazodone 100 mg tablet 0 - 3 tab PO BEDTIME 04/25/21 04/25/21 Unknown History Physical Exam Vital Signs: Vital Signs: Last Vital Signs Temp 98.9 F 04/25/21 21:12 Pulse 147 H 04/25/21 23:45 Resp 23 H 04/25/21 23:45 BP 136/71 04/25/21 23:45 Pulse Ox 98 04/25/21 23:45 BMI result Body Mass Index 21.5 Const: General: cooperative, poor hygiene and tired appearing Nutritional Appearance: thin Orientation/consciousness: patient oriented x3 Limita tions: no limitations HENMT: Other: multiple scratches on face and forehead, all healing well, no signs of infection noted. Head: Yes normal to inspection, Yes normocephalic and Yes a traumatic Face and sinus: Yes normal facial exam and Yes face symmetric Eyes: General: appearance normal, both eyes and all related structures Neck: Neck: Yes normal visual inspection and Yes full ROM Resp: Effort & Inspection: able to speak in complete sentences and tachypneic Auscultation: clear to auscultation bilaterally Cardio: Rate: tachycardic Rhythm: regular rhythm Heart sounds: normal S1 and S2 GI: Inspection: Yes normal to inspection Palpation (GI): Soft to palpation and nontender Skin: General skin exam: no rashes or lesions noted Neuro: General: patient oriented x3 Extrem: General: Yes normal to inspection Psych: Appearance: disheveled Attitude: cooperative Thought process: Tangential thought process present Thought content: suicidality and no homicidality Insight: Fair insight present (Psych) Judgement: Fair judgement present (Psych) Results Labs CBC and Chem 7: 04/26/21 05:17 04/26/21 05:17 Labs: Laboratory Results - last 24 hr 04/25/21 04/25/21 04/25/21 19:08 19:09 19:10 MCV MCH MCHC RDW Plt Count MPV Immature Gran % (Auto) Neut % (Auto) Lymph % (Auto) Alger % (Auto) Eos % (Auto) Baso % (Auto) Lymph # (Auto) [place] # (Auto) Eos # (Auto) Baso # (Auto) Abs Immat Gran (auto) Absolute Neuts (auto) Absolute Nucleated RBC Nucleated RBC % (auto) Smear Tech's Comments PT 10.8 INR 1.0 APTT 22.3 L VBG pH VBG pCO2 VBG pO2 VBG HCO3 VBG O2 Saturation VBG Base Excess Anion Gap Estim Creat Clear Calc Estimated GFR POC Glucose 153 H Random Glucose Osmolality Lactic Acid Lactic Acid F/U @ 2Hr Calcium Magnesium Total Bilirubin Direct Bilirubin AST ALT Alkaline Phosphatase Ammonia B-Natriuretic Peptide Total Protein Albumin Lipase Urine Color Urine Appearance Urine pH Ur Specific Steele Urine Protein Urine Glucose (UA) Urine Ketones Urine Blood Urine Nitrite Ur Leukocyte Esterase Urine RBC Urine WBC Ur Squamous Epith Cells Urine Bacteria Hyaline Casts Granular Casts Urine Mucus Urine Osmolality Salicylates Urine Opiates Screen Urine Fentanyl Screen Acetaminophen Ur Barbiturates Screen Ur Phencyclidine Scrn Ur Amphetamines Screen U Benzodiazepines Scrn Urine Cocaine Screen U Marijuana (THC) Screen Ethyl Alcohol 303 H* Acetone, Qual COVID-19 (ROBERT) COVID-19 [facility] Com 04/25/21 04/25/21 04/25/21 20:27 20:38 20:38 MCV 103.9 H MCH 34.3 H MCHC 33.0 RDW 13.2 Plt Count 423 H MPV 9.4 Immature Gran % (Auto) 0.5 H Neut % (Auto) 90.4 H Lymph % (Auto) 2.3 L Alger % (Auto) 6.7 Eos % (Auto) 0.0 Baso % (Auto) 0.1 Lymph # (Auto) 0.6 L Alger # (Auto) 1.7 H Eos # (Auto) 0.0 Baso # (Auto) 0.0 Abs Immat Gran (auto) 0.13 H Absolute Neuts (auto) 23.1 H Absolute Nucleated RBC 0.000 Nucleated RBC % (auto) 0.0 Smear Tech's Comments VERIFIED PT INR APTT VBG pH VBG pCO2 VBG pO2 VBG HCO3 VBG O2 Saturation VBG Base Excess Anion Gap 32 H Estim Creat Clear Calc 101.4 Estimated GFR > 60 POC Glucose Random Glucose 158 H Osmolality Lactic Acid Lactic Acid F/U @ 2Hr Calcium 8.1 L Magnesium 2.1 Total Bilirubin 0.6 Direct Bilirubin 0.3 AST 66 H ALT 50 H Alkaline Phosphatase 71 Ammonia B-Natriuretic Peptide Total Protein 5.9 L Albumin 3.7 Lipase 29 Urine Color Urine Appearance Urine pH Ur Specific Steele Urine Protein Urine Glucose (UA) Urine Ketones Urine Blood Urine Nitrite Ur Leukocyte Esterase Urine RBC Urine WBC Ur Squamous Epith Cells Urine Bacteria Hyaline Casts Granular Casts Urine Mucus Urine Osmolality Salicylates < 5.0 L Urine Opiates Screen Urine Fentanyl Screen Acetaminophen < 1 Ur Barbiturates Screen Ur Phencyclidine Scrn Ur Amphetamines Screen U Benzodiazepines Scrn Urine Cocaine Screen U Marijuana (THC) Screen Ethyl Alcohol Acetone, Qual Negative COVID-19 (ROBERT) Negative COVID-19 Clin Com See Note 04/25/21 04/25/21 04/25/21 20:38 20:38 20:38 MCV MCH MCHC RDW Plt Count MPV Immature Gran % (Auto) Neut % (Auto) Lymph % (Auto) Alger % (Auto) Eos % (Auto) Baso % (Auto) Lymph # (Auto) [place] # (Auto) Eos # (Auto) Baso # (Auto) Abs Immat Gran (auto) Absolute Neuts (auto) Absolute Nucleated RBC Nucleated RBC % (auto) Smear Tech's Comments PT INR APTT VBG pH VBG pCO2 VBG pO2 VBG HCO3 VBG O2 Saturation VBG Base Excess Anion Gap Estim Creat Clear Calc Estimated GFR POC Glucose Random Glucose Osmolality Lactic Acid 8.8 H* Lactic Acid F/U @ 2Hr Calcium Magnesium Total Bilirubin Direct Bilirubin AST ALT Alkaline Phosphatase Ammonia 50 B-Natriuretic Peptide 14 Total Protein Albumin Lipase Urine Color Urine Appearance Urine pH Ur Specific Steele Urine Protein Urine Glucose (UA) Urine Ketones Urine Blood Urine Nitrite Ur Leukocyte Esterase Urine RBC Urine WBC Ur Squamous Epith Cells Urine Bacteria Hyaline Casts Granular Casts Urine Mucus Urine Osmolality Salicylates Urine Opiates Screen Urine Fentanyl Screen Acetaminophen Ur Barbiturates Screen Ur Phencyclidine Scrn Ur Amphetamines Screen U Benzodiazepines Scrn Urine Cocaine Screen U Marijuana (THC) Screen Ethyl Alcohol Acetone, Qual COVID-19 (ROBERT) COVID-19 Clin Com 04/25/21 04/25/21 04/25/21 20:38 21:19 21:29 MCV MCH MCHC RDW Plt Count MPV Immature Gran % (Auto) Neut % (Auto) Lymph % (Auto) Alger % (Auto) Eos % (Auto) Baso % (Auto) Lymph # (Auto) [place] # (Auto) Eos # (Auto) Baso # (Auto) Abs Immat Gran (auto) Absolute Neuts (auto) Absolute Nucleated RBC Nucleated RBC % (auto) Smear Tech's Comments PT INR APTT VBG pH 7.28 L VBG pCO2 24 VBG pO2 89 VBG HCO3 11 L VBG O2 Saturation 96.0 VBG Base Excess -12.7 Anion Gap Estim Creat Clear Calc Estimated GFR POC Glucose Random Glucose Osmolality 373 H Lactic Acid Lactic Acid F/U @ 2Hr Calcium Magnesium Total Bilirubin Direct Bilirubin AST ALT Alkaline Phosphatase Ammonia 47 B-Natriuretic Peptide Total Protein Albumin Lipase Urine Color Urine Appearance Urine pH Ur Specific Steele Urine Protein Urine Glucose (UA) Urine Ketones Urine Blood Urine Nitrite Ur Leukocyte Esterase Urine RBC Urine WBC Ur Squamous Epith Cells Urine Bacteria Hyaline Casts Granular Casts Urine Mucus Urine Osmolality Salicylates Urine Opiates Screen Urine Fentanyl Screen Acetaminophen Ur Barbiturates Screen Ur Phencyclidine Scrn Ur Amphetamines Screen U Benzodiazepines Scrn Urine Cocaine Screen U Marijuana (THC) Screen Ethyl Alcohol Acetone, Qual COVID-19 (ROBERT) COVID-19 Clin Com 04/25/21 04/25/21 04/25/21 21:39 21:39 21:40 MCV MCH MCHC RDW Plt Count MPV Immature Gran % (Auto) Neut % (Auto) Lymph % (Auto) Alger % (Auto) Eos % (Auto) Baso % (Auto) Lymph # (Auto) [place] # (Auto) Eos # (Auto) Baso # (Auto) Abs Immat Gran (auto) Absolute Neuts (auto) Absolute Nucleated RBC Nucleated RBC % (auto) Smear Tech's Comments PT INR APTT VBG pH VBG pCO2 VBG pO2 VBG HCO3 VBG O2 Saturation VBG Base Excess Anion Gap Estim Creat Clear Calc Estimated GFR POC Glucose Random Glucose Osmolality Lactic Acid Lactic Acid F/U @ 2Hr Calcium Magnesium Total Bilirubin Direct Bilirubin AST ALT Alkaline Phosphatase Ammonia B-Natriuretic Peptide Total Protein Albumin Lipase Urine Color YELLOW Urine Appearance CLEAR Urine pH 6.0 Ur Specific Steele >= 1.030 H Urine Protein NEG Urine Glucose (UA) NEG Urine Ketones 40 Urine Blood TRACE Urine Nitrite NEG Ur Leukocyte Esterase NEG Urine RBC 5-9 H Urine WBC 1-4 Ur Squamous Epith Cells 1+ Urine Bacteria 1+ Hyaline Casts 5-9 Granular Casts 0-2 Urine Mucus 2+ Urine Osmolality 629 Salicylates Urine Opiates Screen Not Detected Urine Fentanyl Screen Not Detected Acetaminophen Ur Barbiturates Screen Not Detected Ur Phencyclidine Scrn Not Detected Ur Amphetamines Screen Not Detected U Benzodiazepines Scrn Not Detected Urine Cocaine Screen Not Detected U Marijuana (THC) Screen Not Detected Ethyl Alcohol Acetone, Qual COVID-19 (ROBERT) COVID-19 Clin Com 04/25/21 04/25/21 22:59 22:59 MCV MCH MCHC RDW Plt Count MPV Immature Gran % (Auto) Neut % (Auto) Lymph % (Auto) Alger % (Auto) Eos % (Auto) Baso % (Auto) Lymph # (Auto) [place] # (Auto) Eos # (Auto) Baso # (Auto) Abs Immat Gran (auto) Absolute Neuts (auto) Absolute Nucleated RBC Nucleated RBC % (auto) Smear Tech's Comments PT INR APTT VBG pH VBG pCO2 VBG pO2 VBG HCO3 VBG O2 Saturation VBG Base Excess Anion Gap 20 Estim Creat Clear Calc 120.4 Estimated GFR > 60 POC Glucose Random Glucose 301 H D Osmolality Lactic Acid Lactic Acid F/U @ 2Hr 5.4 H* Calcium 7.3 L D Magnesium Total Bilirubin Direct Bilirubin AST ALT Alkaline Phosphatase Ammonia B-Natriuretic Peptide Total Protein Albumin Lipase Urine Color Urine Appearance Urine pH Ur Specific Steele Urine Protein Urine Glucose (UA) Urine Ketones Urine Blood Urine Nitrite Ur Leukocyte Esterase Urine RBC Urine WBC Ur Squamous Epith Cells Urine Bacteria Hyaline Casts Granular Casts Urine Mucus Urine Osmolality Salicylates Urine Opiates Screen Urine Fentanyl Screen Acetaminophen Ur Barbiturates Screen Ur Phencyclidine Scrn Ur Amphetamines Screen U Benzodiazepines Scrn Urine Cocaine Screen U Marijuana (THC) Screen Ethyl Alcohol Acetone, Qual COVID-19 (ROBERT) COVID-19 Clin Com Imaging Radiologist's Impressions: Impressions Chest X-Ray 04/25/21 18:34 IMPRESSION: Unremarkable examination. Head CT 04/25/21 21:10 IMPRESSION: No acute intracranial pathology. Abdomen/Pelvis CT 04/25/21 22:10 IMPRESSION: Enlarged fatty liver. Thickening of the duodenum with some mild periduodenal inflammatory change suggestive of duodenitis or possibly duodenal ulcer disease. Fleischner guidelines were followed. Chest CT 04/25/21 22:10 IMPRESSION: Enlarged fatty liver. Thickening of the duodenum with some mild periduodenal inflammatory change suggestive of duodenitis or possibly duodenal ulcer disease. Fleischner guidelines were followed. Assessment and Plan (1) Alcohol withdrawal syndrome: Status: Acute continue phenobarb, add Versed drip and monitor closely, CIWA scale, monitor labs.
[2021-04-26] VITALS (25 sets, daily range): BP systolic 94–148; BP diastolic 41–95; PULSE 106–146; RESP 15–27; TEMP 37.1–37.7; O2SAT 90–100; BMI 22.2
--- NOTE | 2021-04-26 00:10 | PC.NURSE ---
Pt alert and oriented x4, calm and cooperative. pt denies pain. IV remains intact. Heart rate remains 140s. Regan catheter in placed draining clear yellow urine without issues. Report given to DAMIEN Barba. Pt transferred to ICU by this RN.
--- NOTE | 2021-04-26 00:23 | PC.NURSE ---
Tota of 2,3000ml urine output. IV Vanco continues to infuse during transport. Pt on portable tele monitor for transport with HR elevated. 99.2 oral temp.
[2021-04-26] MEDS: Lactated Ringers 1,000 ML 100 ML IVCONT ×3 (00:45→20:24)
[2021-04-26] MEDS: Midazolam HCl/NS 50 MG/50 ML PLAST..BAG IVCONT (00:45)
[2021-04-26] MEDS: Enoxaparin Sodium 40 MG/0.4 ML SYRINGE SUBCUT (01:01)
[2021-04-26 01:05] LABS: Reflex Lactate? 2 Y
[2021-04-26] MEDS: PHENobarbitaL sodium 130 MG/ML VIAL 245 MG IM (02:55)
--- NOTE | 2021-04-26 03:05 | PC.NURSE ---
Pt admitted to ICU at approx 0030. Pt A&Ox2- vague to time/situation, lethargic but easily arousable. Started on versed drip per order. ST on tele, HR up to 150s. SBP WNL. C/O nausea, but no emesis, tolerating ice chips well. Regan removed per pt request, ADAIR aware- DTV at approx 0900. Skin intact, bed alarm on. Educated on plan of care. Pt's mom called- ok to update per pt.
[2021-04-26 03:56] LABS: Folate 2.3 ng/mL (> or = 4.0); Vitamin B12 452 pg/mL (200-900)
[2021-04-26 05:26] LABS: MANUAL DIFF FLAG NO
[2021-04-26 05:29] LABS: Basophils Percent Auto 0.1 % (0-2); Hemoglobin 11.8 g/dl (14.0-18.0); Imm Gran Abs Auto 0.03 X10*3/uL (0.00-0.03); Imm Gran Pct Auto 0.3 % (0.0-0.4); Lymphocytes Absolute Auto 0.7 X10*3/uL (1.2-4.9); Lymphocytes Percent Auto 6.3 % (20-40); Mean Corpuscular HGB Conc 34.7 g/dl (31.0-36.0); Mean Corpuscular Hemoglobin 34.1 pg (27.0-33.0); Mean Corpuscular Volume 98.3 fL (80.0-98.0); Mean Platelet Volume 9.1 fL (9.4-12.4); Monocytes Percent Auto 9.5 % (2-11); Neutrophils Absolute Auto 9.1 x10*3/uL (2.0-8.3); Neutrophils Percent Auto 83.8 % (45-73); Platelet Count 252 X10*3/uL (160-400); Red Blood Count 3.46 X10*6/uL (4.60-5.80); Red Cell Distribution Width 12.7 % (11.0-16.0); White Blood Count 10.9 X10*3/uL (4.8-10.8)
[2021-04-26 05:34] LABS: Ammonia 30 umol/L (13-55)
[2021-04-26 05:53] LABS: Alanine Aminotransferase 36 U/L (0-40); Albumin Level 3.1 g/dL (3.5-5.0); Alkaline Phosphatase 48 U/L (39-117); Anion Gap 17 (12-20); Aspartate Amino Transferase 49 U/L (5-37); Bilirubin Direct 0.4 mg/dL (0.0-0.5); Bilirubin Total 0.9 mg/dL (0.0-1.0); Blood Urea Nitrogen 18 mg/dL (9-16); Calcium 8.2 mg/dL (8.4-10.2); Carbon Dioxide 24 mmol/L (22-29); Chloride 101 mmol/L (96-108); Estimated Glomerular Filt Rate > 60; Glucose Random 77 mg/dL (60-115); Magnesium 1.6 mg/dL (1.6-2.6); Phosphorus 1.4 mg/dL (2.7-4.5); Potassium 3.9 mmol/L (3.3-5.1); Sodium 138 mmol/L (135-145); Total Protein 4.8 g/dL (6.5-8.0)
[2021-04-26 06:26] LABS: VBG Base Excess 1.1 mmol/L; VBG HCO3 22 mmol/L (22-26); VBG pCO2 25 mmHg; VBG pH 7.55 (7.32-7.43); VBG pO2 52 mmHg
[2021-04-26 06:27] LABS: Venous Blood Gas Refer to POC result
[2021-04-26 06:41] LABS: Lactic Acid 2.4 mmol/L (0.5-2.0)
[2021-04-26] MEDS: PHENobarbitaL 15 MG TABLET 45 MG PO ×2 (08:14→20:21)
[2021-04-26 08:25] LABS: Reflex Lactate? Lactic Acid Added
[2021-04-26] MEDS: Potassium Phosphate/NS 15 MMOL/250 ML PLAST..BAG 62.5 MMOL IV ×2 (09:44→14:36)
[2021-04-26] MEDS: Albumin Human 25 % 100 ML IV ×3 (09:44→19:34)
[2021-04-26 10:18] LABS: ~Lactic Acid-LAB USE ONLY 1.3 mmol/L (0.5-2.0)
--- NOTE | 2021-04-26 12:39 | MHC.CM.PN ---
Addendum entered by Treva Ayala 04/26/21 12:53: PATIENT HAS BEEN COVID-19 VACCINATED HE AND JOSELUIS BELIEVE BOTH WERE GIVEN IN JUNE OR JULY OF 2020. PER DISCUSSION, REFERRALS PLACED TO [facility] IN HOPES OF SECURING A BED (IF RECOMMENDED) UPON DC. PATIENT AGREES TO RECEIVING A BOOSTER VACCINE WHILE HERE. Original Note: PATIENT'S GIRLFRIEND, JOSELUIS WAS IN ROOM AND CASE MANAGEMENT GIVEN PERMISSION TO SPEAK WITH JOSELUIS PRESENT AND ALLOW HER TO ANSWER QUESTIONS JOSELUIS LIVES WITH PATIENT. HE HAS NO PCP BUT RECENTLY HAD AN ONLINE TELE-HEALTH VISIT WITH A PROVIDER THAT IS NOT LOCAL. PATIENT AND JOSELUIS ARE UNABLE TO RECALL THE PROVIDER NAME. TOMMIE REPORTEDLY HAS BEEN EXPERIENCING [facility] FOR QUITE SOME TIME PATIENT WAS PROVIDED WITH A PRESCRIPTION FOR ZOFRAN, WHICH HE FILLED AND REPORTS SOME RELIEF FROM [facility] HE ALSO RELIES ON A 4-PRONG CANE FOR AMBULATION ASSIST. PATIENT AND JOSELUIS FEEL PATIENT WOULD BENEFIT FROM STR UPON DC. CHOICES TO BE OBTAINED FROM [facility]IST AND ADDED TO [facility]. CASE MANAGEMENT TO UPDATE THIS REFERRAL WITH CHOICES.
--- NOTE | 2021-04-26 13:01 | MHC.CM.PN ---
HCP DISCUSSION WILL OCCUR WHEN PATIENT IS FEELING BETTER AND MORE APPROPRIATE TIME FOR THIS DISCUSSION.
--- NOTE | 2021-04-26 13:04 | PM.CCPN ---
Subjective Subjective Date of Service: 04/26/21 Interval History: 36-year-old gentleman with underlying history of alcohol abuse with prior alcohol withdrawal including alcohol withdrawal seizures admitted on 04/25/2021 for acute alcohol intoxication progressing to alcohol withdrawal requiring sedative drips and ICU level of care. No events overnight. Switched from Versed to Precedex drip. Critical Care Time (minutes): 30 Physical Exam Vital Signs: Vital Signs: Last Vital Signs Temp 99.1 F 04/26/21 12:00 Pulse 139 H 04/26/21 12:00 Resp 17 04/26/21 12:00 BP 134/81 04/26/21 12:00 Pulse Ox 95 04/26/21 12:00 BMI result Body Mass Index 22.2 Const: General: no acute distress and lethargic ( arousable) Orientation/consciousness: lethargic ( arousable) Eyes: Sclerae: sclerae normal EOM: EOMs intact bilaterally Neck: Neck: Yes no lymphadenopathy, Yes trachea midline and Yes supple Resp: Effort & Inspection: normal respiratory effort and no respiratory distress Auscultation: clear to auscultation bilaterally Cardio: Rate: tachycardic Rhythm: regular rhythm Heart sounds: no gallops, no murmurs and no rubs GI: Palpation (GI): Soft to palpation and Other GI palpation findings present ( Nontender) Auscultation: normal bowel sounds Extrem: General: Yes no pedal edema, No clubbing and No cyanosis Objective Data Labs CBC & Chem 7: 04/26/21 05:17 04/26/21 05:17 Labs: Laboratory Results - last 24 hr 04/25/21 04/25/21 04/25/21 19:08 19:09 19:10 WBC RBC Hgb Hct MCV MCH MCHC RDW Plt Count MPV Immature Gran % (Auto) Neut % (Auto) Lymph % (Auto) [place] % (Auto) Eos % (Auto) Baso % (Auto) Lymph # (Auto) [place] # (Auto) Eos # (Auto) Baso # (Auto) Abs Immat Gran (auto) Absolute Neuts (auto) Absolute Nucleated RBC Nucleated RBC % (auto) Smear Tech's Comments PT 10.8 INR 1.0 APTT 22.3 L VBG pH VBG pCO2 VBG pO2 VBG HCO3 VBG O2 Saturation VBG Base Excess Sodium Potassium Chloride Carbon Dioxide Anion Gap BUN Creatinine Estim Creat Clear Calc Estimated GFR POC Glucose 153 H Random Glucose Osmolality Lactic Acid Lactic Acid F/U @ 2Hr Lactic Acid F/U @ 4Hr Calcium Phosphorus Magnesium Total Bilirubin Direct Bilirubin AST ALT Alkaline Phosphatase Ammonia Total Creatine Kinase Troponin I High Sens B-Natriuretic Peptide Total Protein Albumin Lipase Vitamin B12 Folate Urine Color Urine Appearance Urine pH Ur Specific [place] Urine Protein Urine Glucose (UA) Urine Ketones Urine Blood Urine Nitrite Ur Leukocyte Esterase Urine RBC Urine WBC Ur Squamous Epith Cells Urine Bacteria Hyaline Casts Granular Casts Urine Mucus Urine Osmolality Salicylates Urine Opiates Screen Urine Fentanyl Screen Acetaminophen Ur Barbiturates Screen Ur Phencyclidine Scrn Ur Amphetamines Screen U Benzodiazepines Scrn Urine Cocaine Screen U Marijuana (THC) Screen Ethyl Alcohol 303 H* Acetone, Qual COVID-19 (ROBERT) COVID-19 Easy Bill Online Com 04/25/21 04/25/21 04/25/21 20:27 20:38 20:38 WBC 25.6 H RBC 4.40 L Hgb 15.1 Hct 45.7 MCV 103.9 H MCH 34.3 H MCHC 33.0 RDW 13.2 Plt Count 423 H MPV 9.4 Immature Gran % (Auto) 0.5 H Neut % (Auto) 90.4 H Lymph % (Auto) 2.3 L [place] % (Auto) 6.7 Eos % (Auto) 0.0 Baso % (Auto) 0.1 Lymph # (Auto) 0.6 L [place] # (Auto) 1.7 H Eos # (Auto) 0.0 Baso # (Auto) 0.0 Abs Immat Gran (auto) 0.13 H Absolute Neuts (auto) 23.1 H Absolute Nucleated RBC 0.000 Nucleated RBC % (auto) 0.0 Smear Tech's Comments VERIFIED PT INR APTT VBG pH VBG pCO2 VBG pO2 VBG HCO3 VBG O2 Saturation VBG Base Excess Sodium 136 Potassium 4.4 Chloride 101 Carbon Dioxide 7 L* Anion Gap 32 H BUN 27 H Creatinine 0.95 Estim Creat Clear Calc 101.4 Estimated GFR > 60 POC Glucose Random Glucose 158 H Osmolality Lactic Acid Lactic Acid F/U @ 2Hr Lactic Acid F/U @ 4Hr Calcium 8.1 L Phosphorus Magnesium 2.1 Total Bilirubin 0.6 Direct Bilirubin 0.3 AST 66 H ALT 50 H Alkaline Phosphatase 71 Ammonia Total Creatine Kinase 53 Troponin I High Sens B-Natriuretic Peptide Total Protein 5.9 L Albumin 3.7 Lipase 29 Vitamin B12 Folate Urine Color Urine Appearance Urine pH Ur Specific [place] Urine Protein Urine Glucose (UA) Urine Ketones Urine Blood Urine Nitrite Ur Leukocyte Esterase Urine RBC Urine WBC Ur Squamous Epith Cells Urine Bacteria Hyaline Casts Granular Casts Urine Mucus Urine Osmolality Salicylates < 5.0 L Urine Opiates Screen Urine Fentanyl Screen Acetaminophen < 1 Ur Barbiturates Screen Ur Phencyclidine Scrn Ur Amphetamines Screen U Benzodiazepines Scrn Urine Cocaine Screen U Marijuana (THC) Screen Ethyl Alcohol Acetone, Qual Negative COVID-19 (ROBERT) Negative COVID-19 Easy Bill Online Com See Note 04/25/21 04/25/21 04/25/21 20:38 20:38 20:38 WBC RBC Hgb Hct MCV MCH MCHC RDW Plt Count MPV Immature Gran % (Auto) Neut % (Auto) Lymph % (Auto) [place] % (Auto) Eos % (Auto) Baso % (Auto) Lymph # (Auto) [place] # (Auto) Eos # (Auto) Baso # (Auto) Abs Immat Gran (auto) Absolute Neuts (auto) Absolute Nucleated RBC Nucleated RBC % (auto) Smear Tech's Comments PT INR APTT VBG pH VBG pCO2 VBG pO2 VBG HCO3 VBG O2 Saturation VBG Base Excess Sodium Potassium Chloride Carbon Dioxide Anion Gap BUN Creatinine Estim Creat Clear Calc Estimated GFR POC Glucose Random Glucose Osmolality Lactic Acid 8.8 H* Lactic Acid F/U @ 2Hr Lactic Acid F/U @ 4Hr Calcium Phosphorus Magnesium Total Bilirubin Direct Bilirubin AST ALT Alkaline Phosphatase Ammonia 50 Total Creatine Kinase Troponin I High Sens < 3.5 B-Natriuretic Peptide 14 Total Protein Albumin Lipase Vitamin B12 Folate Urine Color Urine Appearance Urine pH Ur Specific [place] Urine Protein Urine Glucose (UA) Urine Ketones Urine Blood Urine Nitrite Ur Leukocyte Esterase Urine RBC Urine WBC Ur Squamous Epith Cells Urine Bacteria Hyaline Casts Granular Casts Urine Mucus Urine Osmolality Salicylates Urine Opiates Screen Urine Fentanyl Screen Acetaminophen Ur Barbiturates Screen Ur Phencyclidine Scrn Ur Amphetamines Screen U Benzodiazepines Scrn Urine Cocaine Screen U Marijuana (THC) Screen Ethyl Alcohol Acetone, Qual COVID-19 (ROBERT) COVID-19 Easy Bill Online Com 04/25/21 04/25/21 04/25/21 20:38 20:38 21:19 WBC RBC Hgb Hct MCV MCH MCHC RDW Plt Count MPV Immature Gran % (Auto) Neut % (Auto) Lymph % (Auto) [place] % (Auto) Eos % (Auto) Baso % (Auto) Lymph # (Auto) [place] # (Auto) Eos # (Auto) Baso # (Auto) Abs Immat Gran (auto) Absolute Neuts (auto) Absolute Nucleated RBC Nucleated RBC % (auto) Smear Tech's Comments PT INR APTT VBG pH VBG pCO2 VBG pO2 VBG HCO3 VBG O2 Saturation VBG Base Excess Sodium Potassium Chloride Carbon Dioxide Anion Gap BUN Creatinine Estim Creat Clear Calc Estimated GFR POC Glucose Random Glucose Osmolality 373 H Lactic Acid Lactic Acid F/U @ 2Hr Lactic Acid F/U @ 4Hr Calcium Phosphorus Magnesium Total Bilirubin Direct Bilirubin AST ALT Alkaline Phosphatase Ammonia 47 Total Creatine Kinase Troponin I High Sens B-Natriuretic Peptide Total Protein Albumin Lipase Vitamin B12 452 Folate 2.3 L Urine Color Urine Appearance Urine pH Ur Specific [place] Urine Protein Urine Glucose (UA) Urine Ketones Urine Blood Urine Nitrite Ur Leukocyte Esterase Urine RBC Urine WBC Ur Squamous Epith Cells Urine Bacteria Hyaline Casts Granular Casts Urine Mucus Urine Osmolality Salicylates Urine Opiates Screen Urine Fentanyl Screen Acetaminophen Ur Barbiturates Screen Ur Phencyclidine Scrn Ur Amphetamines Screen U Benzodiazepines Scrn Urine Cocaine Screen U Marijuana (THC) Screen Ethyl Alcohol Acetone, Qual COVID-19 (ROBERT) COVID-19 Clin Com 04/25/21 04/25/21 04/25/21 21:29 21:39 21:39 WBC RBC Hgb Hct MCV MCH MCHC RDW Plt Count MPV Immature Gran % (Auto) Neut % (Auto) Lymph % (Auto) [place] % (Auto) Eos % (Auto) Baso % (Auto) Lymph # (Auto) [place] # (Auto) Eos # (Auto) Baso # (Auto) Abs Immat Gran (auto) Absolute Neuts (auto) Absolute Nucleated RBC Nucleated RBC % (auto) Smear Tech's Comments PT INR APTT VBG pH 7.28 L VBG pCO2 24 VBG pO2 89 VBG HCO3 11 L VBG O2 Saturation 96.0 VBG Base Excess -12.7 Sodium Potassium Chloride Carbon Dioxide Anion Gap BUN Creatinine Estim Creat Clear Calc Estimated GFR POC Glucose Random Glucose Osmolality Lactic Acid Lactic Acid F/U @ 2Hr Lactic Acid F/U @ 4Hr Calcium Phosphorus Magnesium Total Bilirubin Direct Bilirubin AST ALT Alkaline Phosphatase Ammonia Total Creatine Kinase Troponin I High Sens B-Natriuretic Peptide Total Protein Albumin Lipase Vitamin B12 Folate Urine Color YELLOW Urine Appearance CLEAR Urine pH 6.0 Ur Specific [place] >= 1.030 H Urine Protein NEG Urine Glucose (UA) NEG Urine Ketones 40 Urine Blood TRACE Urine Nitrite NEG Ur Leukocyte Esterase NEG Urine RBC 5-9 H Urine WBC 1-4 Ur Squamous Epith Cells 1+ Urine Bacteria 1+ Hyaline Casts 5-9 Granular Casts 0-2 Urine Mucus 2+ Urine Osmolality Salicylates Urine Opiates Screen Not Detected Urine Fentanyl Screen Not Detected Acetaminophen Ur Barbiturates Screen Not Detected Ur Phencyclidine Scrn Not Detected Ur Amphetamines Screen Not Detected U Benzodiazepines Scrn Not Detected Urine Cocaine Screen Not Detected U Marijuana (THC) Screen Not Detected Ethyl Alcohol Acetone, Qual COVID-19 (ROBERT) COVID-19 Clin Com 04/25/21 04/25/21 04/25/21 21:40 22:59 22:59 WBC RBC Hgb Hct MCV MCH MCHC RDW Plt Count MPV Immature Gran % (Auto) Neut % (Auto) Lymph % (Auto) [place] % (Auto) Eos % (Auto) Baso % (Auto) Lymph # (Auto) [place] # (Auto) Eos # (Auto) Baso # (Auto) Abs Immat Gran (auto) Absolute Neuts (auto) Absolute Nucleated RBC Nucleated RBC % (auto) Smear Tech's Comments PT INR APTT VBG pH VBG pCO2 VBG pO2 VBG HCO3 VBG O2 Saturation VBG Base Excess Sodium 135 Potassium 3.9 Chloride 100 Carbon Dioxide 19 L Anion Gap 20 BUN 25 H Creatinine 0.80 Estim Creat Clear Calc 120.4 Estimated GFR > 60 POC Glucose Random Glucose 301 H D Osmolality Lactic Acid Lactic Acid F/U @ 2Hr 5.4 H* Lactic Acid F/U @ 4Hr Calcium 7.3 L D Phosphorus Magnesium Total Bilirubin Direct Bilirubin AST ALT Alkaline Phosphatase Ammonia Total Creatine Kinase Troponin I High Sens B-Natriuretic Peptide Total Protein Albumin Lipase Vitamin B12 Folate Urine Color Urine Appearance Urine pH Ur Specific [place] Urine Protein Urine Glucose (UA) Urine Ketones Urine Blood Urine Nitrite Ur Leukocyte Esterase Urine RBC Urine WBC Ur Squamous Epith Cells Urine Bacteria Hyaline Casts Granular Casts Urine Mucus Urine Osmolality 629 Salicylates Urine Opiates Screen Urine Fentanyl Screen Acetaminophen Ur Barbiturates Screen Ur Phencyclidine Scrn Ur Amphetamines Screen U Benzodiazepines Scrn Urine Cocaine Screen U Marijuana (THC) Screen Ethyl Alcohol Acetone, Qual COVID-19 (ROBERT) COVID-19 Clin Com 04/26/21 04/26/21 04/26/21 01:11 05:17 05:17 WBC 10.9 H RBC 3.46 L D Hgb 11.8 L D Hct 34.0 L D MCV 98.3 H D MCH 34.1 H MCHC 34.7 RDW 12.7 Plt Count 252 D MPV 9.1 L Immature Gran % (Auto) 0.3 Neut % (Auto) 83.8 H Lymph % (Auto) 6.3 L [place] % (Auto) 9.5 Eos % (Auto) 0.0 Baso % (Auto) 0.1 Lymph # (Auto) 0.7 L [place] # (Auto) 1.0 Eos # (Auto) 0.0 Baso # (Auto) 0.0 Abs Immat Gran (auto) 0.03 Absolute Neuts (auto) 9.1 H Absolute Nucleated RBC 0.000 Nucleated RBC % (auto) 0.0 Smear Tech's Comments PT INR APTT VBG pH VBG pCO2 VBG pO2 VBG HCO3 VBG O2 Saturation VBG Base Excess Sodium 138 Potassium 3.9 Chloride 101 Carbon Dioxide 24 Anion Gap 17 BUN 18 H Creatinine 0.66 Estim Creat Clear Calc 146.0 Estimated GFR > 60 POC Glucose Random Glucose 77 D Osmolality Lactic Acid Lactic Acid F/U @ 2Hr Lactic Acid F/U @ 4Hr 5.0 H* Calcium 8.2 L D Phosphorus 1.4 L Magnesium 1.6 Total Bilirubin 0.9 Direct Bilirubin 0.4 AST 49 H ALT 36 Alkaline Phosphatase 48 D Ammonia Total Creatine Kinase Troponin I High Sens B-Natriuretic Peptide Total Protein 4.8 L Albumin 3.1 L Lipase Vitamin B12 Folate Urine Color Urine Appearance Urine pH Ur Specific [place] Urine Protein Urine Glucose (UA) Urine Ketones Urine Blood Urine Nitrite Ur Leukocyte Esterase Urine RBC Urine WBC Ur Squamous Epith Cells Urine Bacteria Hyaline Casts Granular Casts Urine Mucus Urine Osmolality Salicylates Urine Opiates Screen Urine Fentanyl Screen Acetaminophen Ur Barbiturates Screen Ur Phencyclidine Scrn Ur Amphetamines Screen U Benzodiazepines Scrn Urine Cocaine Screen U Marijuana (THC) Screen Ethyl Alcohol Acetone, Qual COVID-19 (ROBERT) COVID-19 Clin Com 04/26/21 04/26/21 04/26/21 05:17 06:19 06:20 WBC RBC Hgb Hct MCV MCH MCHC RDW Plt Count MPV Immature Gran % (Auto) Neut % (Auto) Lymph % (Auto) [place] % (Auto) Eos % (Auto) Baso % (Auto) Lymph # (Auto) [place] # (Auto) Eos # (Auto) Baso # (Auto) Abs Immat Gran (auto) Absolute Neuts (auto) Absolute Nucleated RBC Nucleated RBC % (auto) Smear Tech's Comments PT INR APTT VBG pH 7.55 H VBG pCO2 25 VBG pO2 52 VBG HCO3 22 VBG O2 Saturation 88.0 VBG Base Excess 1.1 Sodium Potassium Chloride Carbon Dioxide Anion Gap BUN Creatinine Estim Creat Clear Calc Estimated GFR POC Glucose Random Glucose Osmolality Lactic Acid 2.4 H* Lactic Acid F/U @ 2Hr Lactic Acid F/U @ 4Hr Calcium Phosphorus Magnesium Total Bilirubin Direct Bilirubin AST ALT Alkaline Phosphatase Ammonia 30 Total Creatine Kinase Troponin I High Sens B-Natriuretic Peptide Total Protein Albumin Lipase Vitamin B12 Folate Urine Color Urine Appearance Urine pH Ur Specific [place] Urine Protein Urine Glucose (UA) Urine Ketones Urine Blood Urine Nitrite Ur Leukocyte Esterase Urine RBC Urine WBC Ur Squamous Epith Cells Urine Bacteria Hyaline Casts Granular Casts Urine Mucus Urine Osmolality Salicylates Urine Opiates Screen Urine Fentanyl Screen Acetaminophen Ur Barbiturates Screen Ur Phencyclidine Scrn Ur Amphetamines Screen U Benzodiazepines Scrn Urine Cocaine Screen U Marijuana (THC) Screen Ethyl Alcohol Acetone, Qual COVID-19 (ROBERT) COVID-19 Clin Com 04/26/21 09:24 WBC RBC Hgb Hct MCV MCH MCHC RDW Plt Count MPV Immature Gran % (Auto) Neut % (Auto) Lymph % (Auto) [place] % (Auto) Eos % (Auto) Baso % (Auto) Lymph # (Auto) [place] # (Auto) Eos # (Auto) Baso # (Auto) Abs Immat Gran (auto) Absolute Neuts (auto) Absolute Nucleated RBC Nucleated RBC % (auto) Smear Tech's Comments PT INR APTT VBG pH VBG pCO2 VBG pO2 VBG HCO3 VBG O2 Saturation VBG Base Excess Sodium Potassium Chloride Carbon Dioxide Anion Gap BUN Creatinine Estim Creat Clear Calc Estimated GFR POC Glucose Random Glucose Osmolality Lactic Acid Lactic Acid F/U @ 2Hr 1.3 Lactic Acid F/U @ 4Hr Calcium Phosphorus Magnesium Total Bilirubin Direct Bilirubin AST ALT Alkaline Phosphatase Ammonia Total Creatine Kinase Troponin I High Sens B-Natriuretic Peptide Total Protein Albumin Lipase Vitamin B12 Folate Urine Color Urine Appearance Urine pH Ur Specific [place] Urine Protein Urine Glucose (UA) Urine Ketones Urine Blood Urine Nitrite Ur Leukocyte Esterase Urine RBC Urine WBC Ur Squamous Epith Cells Urine Bacteria Hyaline Casts Granular Casts Urine Mucus Urine Osmolality Salicylates Urine Opiates Screen Urine Fentanyl Screen Acetaminophen Ur Barbiturates Screen Ur Phencyclidine Scrn Ur Amphetamines Screen U Benzodiazepines Scrn Urine Cocaine Screen U Marijuana (THC) Screen Ethyl Alcohol Acetone, Qual COVID-19 (ROBERT) COVID-19 Clin Com Progress Note: A&P Assessment and plan (1) Alcohol withdrawal syndrome: Status: Acute Plan Assessment: 36-year-old gentleman admitted with acute alcohol intoxication progress into alcohol withdrawal, still requiring sedative drips. Plan: Neuro: Delirium tremens, continue to titrate of sedative drips as tolerated. Continue with phenobarbital protocol. Cardiac: No acute issues. Pulmonary: No acute issues. Renal: No acute issues. Endo: No acute issues. GI: No acute issues. ID: No acute issues Heme/Onc: No acute issues. Psych: No acute issues. Miscellaneous: No acute issues. Prophylaxis: Heparin Diet: NPO Critical care time spent: 30 minutes Quality Stroke Does the patient have a stroke diagnosis?: No VTE Prior VTE?: No VTE Risk Level:: Medical - low VTE Device Contraindication: N/A - Device Ordered VTE Drug Contraindication: N/A - Med Ordered
[2021-04-26] MEDS: Acetaminophen 325 MG TABLET 650 MG PO (19:30)
[2021-04-26] MEDS: traZODone HCL 100 MG TABLET 300 MG PO (20:21)
[2021-04-26] MEDS: dexmedeTOMIDidine HCL/NS 400 MCG/100 ML INFUS..BTL 17.6 MCG IVCONT (23:56)
[2021-04-27] VITALS (15 sets, daily range): BP systolic 98–141; BP diastolic 54–88; PULSE 78–117; RESP 14–21; TEMP 36.9–38.1; O2SAT 90–98; BMI 22.3
[2021-04-27] MEDS: Enoxaparin Sodium 40 MG/0.4 ML SYRINGE SUBCUT (00:01)
[2021-04-27] MEDS: Albumin Human 25 % 100 ML IV (02:10)
[2021-04-27] MEDS: dexmedeTOMIDidine HCL/NS 400 MCG/100 ML INFUS..BTL 10.56 MCG IVCONT (05:57)
[2021-04-27] MEDS: Lactated Ringers 1,000 ML 100 ML IVCONT (05:57)
[2021-04-27 07:39] LABS: MANUAL DIFF FLAG NO
[2021-04-27 07:44] LABS: Basophils Percent Auto 0.2 % (0-2); Eosinophils Percent Auto 0.2 % (0-4); Hematocrit 30.1 % (42.0-52.0); Hemoglobin 10.3 g/dl (14.0-18.0); Imm Gran Abs Auto 0.02 X10*3/uL (0.00-0.03); Imm Gran Pct Auto 0.3 % (0.0-0.4); Lymphocytes Absolute Auto 0.7 X10*3/uL (1.2-4.9); Lymphocytes Percent Auto 10.6 % (20-40); Mean Corpuscular HGB Conc 34.2 g/dl (31.0-36.0); Mean Corpuscular Hemoglobin 33.9 pg (27.0-33.0); Mean Platelet Volume 9.1 fL (9.4-12.4); Monocytes Absolute Auto 0.5 X10*3/uL (0.1-1.2); Monocytes Percent Auto 7.3 % (2-11); Neutrophils Percent Auto 81.4 % (45-73); Platelet Count 177 X10*3/uL (160-400); Red Blood Count 3.04 X10*6/uL (4.60-5.80); Red Cell Distribution Width 12.4 % (11.0-16.0); White Blood Count 6.1 X10*3/uL (4.8-10.8)
[2021-04-27 08:03] LABS: Alanine Aminotransferase 30 U/L (0-40); Alkaline Phosphatase 44 U/L (39-117); Anion Gap 17 (12-20); Aspartate Amino Transferase 55 U/L (5-37); Bilirubin Total 1.7 mg/dL (0.0-1.0); Blood Urea Nitrogen 12 mg/dL (9-16); Carbon Dioxide 23 mmol/L (22-29); Chloride 99 mmol/L (96-108); Creatinine Clr Calc Pharmacy 163.9; Estimated Glomerular Filt Rate > 60; Glucose Random 94 mg/dL (60-115); Magnesium 1.8 mg/dL (1.6-2.6); Phosphorus 2.2 mg/dL (2.7-4.5); Sodium 136 mmol/L (135-145); Total Protein 5.6 g/dL (6.5-8.0)
[2021-04-27] MEDS: PHENobarbitaL 15 MG TABLET 45 MG PO ×2 (08:08→20:10)
[2021-04-27 08:13] LABS: Albumin Level 4.1 g/dL (3.5-5.0); Calcium 9.2 mg/dL (8.4-10.2)
[2021-04-27] MEDS: Potassium Phosphate/NS 15 MMOL/250 ML PLAST..BAG 62.5 MMOL IV ×2 (08:34→12:33)
[2021-04-27] MEDS: Magnesium Hydrox/Alum Hydrox 30 ML ORAL.SUSP PO (09:53)
[2021-04-27] MEDS: Acetaminophen 325 MG TABLET 650 MG PO ×2 (11:16→16:50)
--- NOTE | 2021-04-27 12:28 | PM.CCPN ---
Subjective Subjective Date of Service: 04/27/21 Interval History: 36-year-old gentleman with underlying history of alcohol abuse with prior alcohol withdrawal including alcohol withdrawal seizures admitted on 04/25/2021 for acute alcohol intoxication progressing to alcohol withdrawal requiring sedative drips and ICU level of care. No events overnight. Titrated off sedative drips. Critical Care Time (minutes): 0 Physical Exam Vital Signs: Vital Signs: Last Vital Signs Temp 98.4 F 04/27/21 08:00 Pulse 110 H 04/27/21 08:00 Resp 14 04/27/21 08:00 BP 112/65 04/27/21 08:00 Pulse Ox 93 04/27/21 08:00 BMI result Body Mass Index 22.3 Const: General: no acute distress, alert and awake Eyes: Sclerae: sclerae normal EOM: EOMs intact bilaterally Neck: Neck: Yes no lymphadenopathy, Yes trachea midline and Yes supple Resp: Effort & Inspection: normal respiratory effort and no respiratory distress Auscultation: clear to auscultation bilaterally Cardio: Rate: regular rate Rhythm: regular rhythm Heart sounds: no gallops, no murmurs and no rubs GI: Palpation (GI): Soft to palpation and Other GI palpation findings present ( Nontender) Auscultation: normal bowel sounds Extrem: General: Yes no pedal edema, No clubbing and No cyanosis Objective Data Labs CBC & Chem 7: 04/27/21 07:34 04/27/21 07:34 Labs: Laboratory Results - last 24 hr 04/27/21 04/27/21 07:34 07:34 WBC 6.1 RBC 3.04 L Hgb 10.3 L Hct 30.1 L MCV 99.0 H MCH 33.9 H MCHC 34.2 RDW 12.4 Plt Count 177 D MPV 9.1 L Immature Gran % (Auto) 0.3 Neut % (Auto) 81.4 H Lymph % (Auto) 10.6 L [place] % (Auto) 7.3 Eos % (Auto) 0.2 Baso % (Auto) 0.2 Lymph # (Auto) 0.7 L [place] # (Auto) 0.5 Eos # (Auto) 0.0 Baso # (Auto) 0.0 Abs Immat Gran (auto) 0.02 Absolute Neuts (auto) 5.0 Absolute Nucleated RBC 0.000 Nucleated RBC % (auto) 0.0 Sodium 136 Potassium 3.0 L D Chloride 99 Carbon Dioxide 23 Anion Gap 17 BUN 12 Creatinine 0.61 Estim Creat Clear Calc 163.9 Estimated GFR > 60 Random Glucose 94 Calcium 9.2 D Phosphorus 2.2 L Magnesium 1.8 Total Bilirubin 1.7 H AST 55 H ALT 30 Alkaline Phosphatase 44 Total Protein 5.6 L Albumin 4.1 D Microbiology Microbiology Results: Microbiology 04/25/21 20:38 Blood - Venous Blood Culture - Preliminary No growth after 24 hours. 04/25/21 19:09 Blood - Venous Blood Culture - Preliminary No growth after 24 hours. Progress Note: A&P Assessment and plan (1) Alcohol withdrawal syndrome: Status: Acute Plan Assessment: 36-year-old gentleman admitted with acute alcohol intoxication progress into alcohol withdrawal, still requiring sedative drips. Plan: Neuro: Delirium tremens, titrated off sedative drips as tolerated. Continue with phenobarbital protocol. Cardiac: No acute issues. Pulmonary: No acute issues. Renal: No acute issues. Endo: No acute issues. GI: No acute issues. ID: No acute issues Heme/Onc: No acute issues. Psych: No acute issues. Miscellaneous: No acute issues. Prophylaxis: Heparin Diet: Regular Quality Stroke Does the patient have a stroke diagnosis?: No VTE Prior VTE?: No VTE Risk Level:: Medical - low VTE Device Contraindication: N/A - Device Ordered VTE Drug Contraindication: N/A - Med Ordered
--- NOTE | 2021-04-27 14:57 | PM.EVENT ---
Event Note Date of Service: 04/27/21 Event Note: Patient already seen by ICU today Patient had alcohol withdrawal was managed with multiple sedative drips, currently improving, as per staff CIWA scale of 4. Patient's feels somewhat anxious Physical exam: Please see ICU note, unchanged. Assessment and plan discussed with ICU, continue phenobarb Monitor CIWA Will add hydroxyzine 1 does for anxiety, started back is trazodone Add psych consult to help with his anxiety
[2021-04-27] MEDS: hydrOXYzine HCL 50 MG TABLET PO (15:21)
[2021-04-27] MEDS: traMADoL HCL 50 MG TABLET 25 MG PO (16:50)
[2021-04-27] MEDS: Magnesium Oxide 400 MG TABLET 800 MG PO (16:50)
[2021-04-27] MEDS: Morphine Sulfate 2 MG/ML CARTRIDGE IVPUSH (18:27)
[2021-04-28] VITALS (7 sets, daily range): BP systolic 119–160; BP diastolic 75–94; PULSE 105–130; RESP 15–18; TEMP 36.3–37.1; O2SAT 97–100; BMI 22.3
[2021-04-28] MEDS: Enoxaparin Sodium 40 MG/0.4 ML SYRINGE SUBCUT (00:12)
[2021-04-28] MEDS: Morphine Sulfate 2 MG/ML CARTRIDGE IVPUSH ×2 (00:13→21:59)
[2021-04-28 06:36] LABS: MANUAL DIFF FLAG NO
[2021-04-28 06:47] LABS: Basophils Percent Auto 0.2 % (0-2); Eosinophils Percent Auto 0.2 % (0-4); Hematocrit 35.4 % (42.0-52.0); Hemoglobin 12.5 g/dl (14.0-18.0); Imm Gran Abs Auto 0.01 X10*3/uL (0.00-0.03); Imm Gran Pct Auto 0.2 % (0.0-0.4); Lymphocytes Absolute Auto 0.6 X10*3/uL (1.2-4.9); Lymphocytes Percent Auto 9.6 % (20-40); Mean Corpuscular HGB Conc 35.3 g/dl (31.0-36.0); Mean Corpuscular Hemoglobin 34.1 pg (27.0-33.0); Mean Corpuscular Volume 96.5 fL (80.0-98.0); Mean Platelet Volume 10.1 fL (9.4-12.4); Monocytes Absolute Auto 0.4 X10*3/uL (0.1-1.2); Monocytes Percent Auto 7.3 % (2-11); Neutrophils Absolute Auto 4.9 x10*3/uL (2.0-8.3); Neutrophils Percent Auto 82.5 % (45-73); Platelet Count 191 X10*3/uL (160-400); Red Blood Count 3.67 X10*6/uL (4.60-5.80); Red Cell Distribution Width 11.9 % (11.0-16.0); White Blood Count 5.9 X10*3/uL (4.8-10.8)
[2021-04-28 07:05] LABS: Anion Gap 13 (12-20); Blood Urea Nitrogen 5 mg/dL (9-16); Calcium 9.4 mg/dL (8.4-10.2); Carbon Dioxide 28 mmol/L (22-29); Chloride 95 mmol/L (96-108); Creatinine Clr Calc Pharmacy 181.5; Estimated Glomerular Filt Rate > 60; Glucose Random 98 mg/dL (60-115); Potassium 3.2 mmol/L (3.3-5.1); Sodium 133 mmol/L (135-145)
[2021-04-28 08:15] LABS: Magnesium 1.9 mg/dL (1.6-2.6)
[2021-04-28] MEDS: Potassium Chloride ER 20 MEQ TAB.ER.PRT 40 MEQ PO (08:47)
[2021-04-28] MEDS: Thiamine HCL 100 MG TABLET PO (08:47)
[2021-04-28] MEDS: Omeprazole 20 MG CAPSULE.DR PO ×2 (08:47→16:51)
[2021-04-28] MEDS: PHENobarbitaL 30 MG TABLET PO ×2 (08:48→21:59)
[2021-04-28] MEDS: Magnesium Oxide 400 MG TABLET 800 MG PO (08:48)
[2021-04-28] MEDS: Multivitamin TABLET 1 TAB PO (08:48)
[2021-04-28] MEDS: Folic Acid 1 MG TABLET PO (08:48)
[2021-04-28] MEDS: Ondansetron ODT 4 MG TAB.RAPDIS TRANSLINGU (09:44)
[2021-04-28] MEDS: hydrOXYzine HCL 50 MG TABLET PO ×2 (09:45→15:35)
--- NOTE | 2021-04-28 10:04 | P.CNPS_ITS ---
History of Present Illness Date of Service: 04/28/21 Chief Complaint: Alcohol Withdrawal Reason for Consult: continued anxiety after alcohol withdrawal Requesting physician: Cristiano Damon Discussed with referring provider: Yes Sources of Information: patient interviewed and chart reviewed HPI Narrative: Patient was resting comfortably in bed, fully cooperative with interview. He was fully alert and oriented. He explains that he came to this area to go to school at [employer], graduating in 2005. He stayed this area after college, although his family is not from this area. His family is from [place]. He experienced a difficult relationship breakup around graduation in 2005, and fell into a depression, and he began working with an outpatient therapist, Suha Nava, at that time. He continues to work with her. 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 He reports that due to coming to hospital and alcohol detoxification over the past week, he has decided to take a leave of absence from school at this time, and he is interested on focusing on both his mental health and is also considering cutting down his alcohol consumption. He is also considering moving back to [place] to be closer to family. Does have a fiancee, who he describes as aguilar pportive. He has an outpatient psychiatric provider. He has been prescribed lorazepam, trazodone at bedtime, as well as Adderall. He says he Adderall was not for any type of diagnosis of ADHD, but as an adjunct of medication for his depression, as it helped him with focus. He denies any thought of harm to self or others. He states that he has had difficulty with depressive symptoms since 2005. We discussed his alcohol use disorder, and its role in depression/anxiety symptoms. Addiction consult service present, will meet with patient further regarding this. He denies any inpatient stay for Psychiatry, and denies that he is having any HI, SI, AH, VH. He states he feels safe. He was agreeable to consider some sort of treatment as aftercare, either a partial hospitalization program with dual diagnosis that can address both of his depressive symptoms and alcohol use disorder, or may consider an IOP specifically for alcohol use. We discussed medications, he was started on hydroxyzine while here. Past Psychiatric History: Has a therapist since 2005, Suha Nava. has a current psychiatric provider, ELIAZAR Devlin. 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 Engaged to be . Family lives in [place]. Review of Systems Review of Systems A full review of systems was completed and was negative with the exception of pertinent positives noted in history of the presenting illness (HPI). 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 Plans to take leave of absence. Substance History: Alcohol use disorder, started drinking at ag 16. Says began using it as a coping mechanism in 2009. Has been drinking daily, multiple hard liquor drinks. Trauma History: None reported. Diagnostics Vital Signs (24Hr): Vital Signs - 24 hr 04/27/21 12:00 04/27/21 15:10 04/27/21 18:27 Temperature 99.3 F 99.3 F Pulse Rate 95 107 H Respiratory Rate 18 18 16 Blood Pressure 123/79 141/88 H Pulse Oximetry 98 96 04/27/21 18:56 04/27/21 21:14 04/27/21 23:48 Temperature 100.5 F H 99.5 F 98.6 F Pulse Rate 104 H 117 H Respiratory Rate 20 19 Blood Pressure 117/70 131/87 Pulse Oximetry 97 98 04/28/21 03:29 04/28/21 07:18 Temperature 98.7 F 97.5 F Pulse Rate 110 H 105 H Respiratory Rate 16 18 Blood Pressure 144/89 H 135/86 Pulse Oximetry 98 98 BMI result Body Mass Index 22.3 Labs Results: 04/28/21 06:14 04/28/21 06:14 Labs: Laboratory Results - last 48 hr 04/26/21 04/27/21 04/27/21 09:24 07:34 07:34 WBC 6.1 RBC 3.04 L Hgb 10.3 L Hct 30.1 L MCV 99.0 H MCH 33.9 H MCHC 34.2 RDW 12.4 Plt Count 177 D MPV 9.1 L Immature Gran % (Auto) 0.3 Neut % (Auto) 81.4 H Lymph % (Auto) 10.6 L [place] % (Auto) 7.3 Eos % (Auto) 0.2 Baso % (Auto) 0.2 Lymph # (Auto) 0.7 L [place] # (Auto) 0.5 Eos # (Auto) 0.0 Baso # (Auto) 0.0 Abs Immat Gran (auto) 0.02 Absolute Neuts (auto) 5.0 Absolute Nucleated RBC 0.000 Nucleated RBC % (auto) 0.0 Sodium 136 Potassium 3.0 L D Chloride 99 Carbon Dioxide 23 Anion Gap 17 BUN 12 Creatinine 0.61 Estim Creat Clear Calc 163.9 Estimated GFR > 60 Random Glucose 94 Lactic Acid F/U @ 2Hr 1.3 Calcium 9.2 D Phosphorus 2.2 L Magnesium 1.8 Total Bilirubin 1.7 H AST 55 H ALT 30 Alkaline Phosphatase 44 Total Protein 5.6 L Albumin 4.1 D 04/28/21 04/28/21 06:14 06:14 WBC 5.9 RBC 3.67 L D Hgb 12.5 L D Hct 35.4 L MCV 96.5 MCH 34.1 H MCHC 35.3 RDW 11.9 Plt Count 191 MPV 10.1 Immature Gran % (Auto) 0.2 Neut % (Auto) 82.5 H Lymph % (Auto) 9.6 L [place] % (Auto) 7.3 Eos % (Auto) 0.2 Baso % (Auto) 0.2 Lymph # (Auto) 0.6 L [place] # (Auto) 0.4 Eos # (Auto) 0.0 Baso # (Auto) 0.0 Abs Immat Gran (auto) 0.01 Absolute Neuts (auto) 4.9 Absolute Nucleated RBC 0.000 Nucleated RBC % (auto) 0.0 Sodium 133 L Potassium 3.2 L Chloride 95 L Carbon Dioxide 28 Anion Gap 13 BUN 5 L D Creatinine 0.55 Estim Creat Clear Calc 181.5 Estimated GFR > 60 Random Glucose 98 Lactic Acid F/U @ 2Hr Calcium 9.4 Phosphorus Magnesium 1.9 Total Bilirubin AST ALT Alkaline Phosphatase Total Protein Albumin Imaging Radiology Impressions: ITS Impressions Chest X-Ray 04/25/21 18:34 IMPRESSION: Unremarkable examination. Head CT 04/25/21 21:10 IMPRESSION: No acute intracranial pathology. Abdomen/Pelvis CT 04/25/21 22:10 IMPRESSION: Enlarged fatty liver. Thickening of the duodenum with some mild periduodenal inflammatory change suggestive of duodenitis or possibly duodenal ulcer disease. Fleischner guidelines were followed. Chest CT 04/25/21 22:10 IMPRESSION: Enlarged fatty liver. Thickening of the duodenum with some mild periduodenal inflammatory change suggestive of duodenitis or possibly duodenal ulcer disease. Fleischner guidelines were followed. Mental Status Exam Mental Status Exam Narrative: Well-developed, well-developed male, in NAD. No evidence of alcohol withdrawals noted during encounter. Patient did not appear to be responding to any type of internal stimuli. Denies any SI, any thought of harm to self or others. Anxious mood and affect. Patient Appearance: Disheveled Patient Orientation: Person, Place, Time and Situation Level of Consciousness: Awake, Appropriate and Alert Patient Behavior: Appropriate, Cooperative and Good Eye Contact Mood Description: Anxious Affect Description: Anxious Patient Cognition Impaired: No Ability to Follow Directions: Good Speech Pattern: Clear, Appropriate and Coherent Memory Description: Intact Hallucinations: None Delusions: Not Present Thought Process: Intact Thought Content: positive for Intact Depressive Symptoms: Increased Anxiety Judgement: Fair Judgement and Insight: Judgment and insight fair but adequate. Medications Medications Current Medications Acetaminophen (Acetaminophen 325 Mg Tablet) 650 mg PO Q4H PRN PRN Reason: Pain, Moderate (Pain Scale 4-6 Last Admin: 04/27/21 16:50 Dose: 650 mg Documented by: Al Hydroxide/Mg Hydroxide (Magnesium Hydrox/Alum Hydrox 30 Ml Oral.Susp) 30 ml PO Q6H PRN PRN Reason: acid reflux Last Admin: 04/27/21 09:53 Dose: 30 ml Documented by: Enoxaparin Sodium (Enoxaparin Sodium 40 Mg/0.4 Ml Syringe) 40 mg SUBCUT Q24H [facility] Last Admin: 04/28/21 00:12 Dose: 40 mg Documented by: Folic Acid (Folic Acid 1 Mg Tablet) 1 mg PO DAILY [facility] Last Admin: 04/28/21 08:48 Dose: 1 mg Documented by: Hydroxyzine HCl (Hydroxyzine Hcl 50 Mg Tablet) 50 mg PO Q6H PRN PRN Reason: anxiety Last Admin: 04/28/21 09:45 Dose: 50 mg Documented by: Magnesium Oxide (Magnesium Oxide 400 Mg Tablet) 800 mg PO DAILY [facility] Last Admin: 04/28/21 08:48 Dose: 800 mg Documented by: Medication (No Benzodiazepines) 1 each MISCELLANE DAILY [facility] Morphine Sulfate (Morphine Sulfate 2 Mg/Ml Cartridge) 2 mg IVPUSH Q6H PRN; Protocol PRN Reason: Pain, Severe (Pain Scale 7-10) Last Admin: 04/28/21 00:13 Dose: 2 mg Documented by: Multivitamins/Vitamin C (Multivitamin Tablet) 1 tab PO DAILY [facility] Last Admin: 04/28/21 08:48 Dose: 1 tab Documented by: Omeprazole (Omeprazole 20 Mg Capsule.Dr) 20 mg PO BID@0630,1630 [facility] Last Admin: 04/28/21 08:47 Dose: 20 mg Documented by: Ondansetron HCl (Ondansetron Odt 4 Mg Tab.Rapdis) 4 mg TRANSLINGU Q6H PRN PRN Reason: nausea/vomiting Last Admin: 04/28/21 09:44 Dose: 4 mg Documented by: Phenobarbital (Phenobarbital 30 Mg Tablet) 30 mg PO BID [facility] Stop: 04/29/21 21:01 Last Admin: 04/28/21 08:48 Dose: 30 mg Documented by: Phenobarbital (Phenobarbital 15 Mg Tablet) 15 mg PO DAILY [facility] Stop: 05/01/21 09:01 Thiamine HCl (Thiamine Hcl 100 Mg Tablet) 100 mg PO DAILY [facility] Last Admin: 04/28/21 08:47 Dose: 100 mg Documented by: Trazodone HCl (Trazodone Hcl 100 Mg Tablet) 300 mg PO BEDTIME PRN PRN Reason: Sleep Last Admin: 04/26/21 20:21 Dose: 300 mg Documented by: Allergies Allergies Allergy/AdvReac Type Severity Reaction Status Date / Time No Known Allergies Allergy Verified 04/25/21 18:27 Assessment & Plan Assessment & Plan (1) Depressed: Qualifiers: Depression Type: major depressive disorder Major depression recurrence: recurrent Active/Remission status: currently active Major depression episode severity: moderate Qualified Code(s): F33.1 - Major depressive disorder, recurrent, moderate Status: Acute Code(s): F32.A - Depression, unspecified Assessment and Plan: Patient reports ongoing issues with depression, reports he 1st experienced a major depressive episode in 2005 after graduation from college and a break-up from a relationship. He has been engaged in treatment since that time. We discussed medications, patient has been prescribed Adderall 20 mg twice daily, but states that this was due to symptoms of depression, in order to help him focus. He does have trazodone 300 mg at bedtime, which he reports is the only antidepressant he is prescribed, and that he uses it for sleep. He does have Ativan prescribed for his anxiety. He denies any SI, denies any thought of harm to self or others, no safety concern at this time. He does not appear to meet any type of inpatient level of care regarding psychiatric symptoms. 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 He states that this has led to increased alcohol consumption as well. He is interested in receiving information regarding partial hospitalization programs, intensive outpatient programs. He is also interested in discussing medications for alcohol use, and will speak to recovery team provider regarding possibly acamprosate or naltrexone. (2) Anxiety: Status: Acute Code(s): F41.9 - Anxiety disorder, unspecified Plan 1. Continue with current prescribed hydroxyzine. 2. Patient was advised to not take Adderall at this time, but to discuss with outpatient provider medications for depression going forward. 3. Care team notified, asked to provide information regarding PHP or IOP referrals. This information was shared with provider Dr. Dorian Metcalf, as via secure electronic messaging system. Thank you for this consultation. If you have any further questions or concerns, please do not hesitate to contact psychiatry consult service. I spent ___30___ minutes with the patient and/or on the patient floor today, greater than?50% of which was spent counseling/coordinating care. Patient educated on: diagnosis, medication risk/benefits, substance abuse and therapeutic strategies Informed Consent: understands
--- NOTE | 2021-04-28 10:14 | HO.PM.IMPN ---
Subjective Subjective Date of Service: 04/28/21 Interval History: Anxious Committed to sobriety Some epigastric discomfort + nausea Review of Systems Review of Systems: Yes all other systems are reviewed and are negative Physical Exam Vital Signs: Vital Signs: Last Vital Signs Temp 97.5 F 04/28/21 07:18 Pulse 105 H 04/28/21 07:18 Resp 18 04/28/21 07:18 BP 135/86 04/28/21 07:18 Pulse Ox 98 04/28/21 07:18 BMI result Body Mass Index 22.3 Gen: in no acute distress HEENT: sclera anicteric, moist mucus membranes Neck: supple Lungs: clear to auscultation bilaterally Heart: tachycardic, no murmurs Abd: soft, non-tender, non-distended Ext: no edema Skin: warm/well-perfused Neuro: alert and oriented x3, no focal findings Psych: appropriate affect Objective Data Active Medications Acetaminophen (Acetaminophen 325 Mg Tablet) 650 mg PO Q4H PRN PRN Reason: Pain, Moderate (Pain Scale 4-6 Last Admin: 04/27/21 16:50 Dose: 650 mg Documented by: JUMA Al Hydroxide/Mg Hydroxide (Magnesium Hydrox/Alum Hydrox 30 Ml Oral.Susp) 30 ml PO Q6H PRN PRN Reason: acid reflux Last Admin: 04/27/21 09:53 Dose: 30 ml Documented by: AMY Enoxaparin Sodium (Enoxaparin Sodium 40 Mg/0.4 Ml Syringe) 40 mg SUBCUT Q24H [facility] Last Admin: 04/28/21 00:12 Dose: 40 mg Documented by: LUIS Folic Acid (Folic Acid 1 Mg Tablet) 1 mg PO DAILY [facility] Last Admin: 04/28/21 08:48 Dose: 1 mg Documented by: LAZ Hydroxyzine HCl (Hydroxyzine Hcl 50 Mg Tablet) 50 mg PO Q6H PRN PRN Reason: anxiety Last Admin: 04/28/21 09:45 Dose: 50 mg Documented by: LAZ Magnesium Oxide (Magnesium Oxide 400 Mg Tablet) 800 mg PO DAILY [facility] Last Admin: 04/28/21 08:48 Dose: 800 mg Documented by: LAZ Medication (No Benzodiazepines) 1 each MISCELLANE DAILY [facility] Morphine Sulfate (Morphine Sulfate 2 Mg/Ml Cartridge) 2 mg IVPUSH Q6H PRN; Protocol PRN Reason: Pain, Severe (Pain Scale 7-10) Last Admin: 04/28/21 00:13 Dose: 2 mg Documented by: LUIS Multivitamins/Vitamin C (Multivitamin Tablet) 1 tab PO DAILY [facility] Last Admin: 04/28/21 08:48 Dose: 1 tab Documented by: LAZ Omeprazole (Omeprazole 20 Mg Capsule.Dr) 20 mg PO BID@0630,1630 [facility] Last Admin: 04/28/21 08:47 Dose: 20 mg Documented by: LAZ Ondansetron HCl (Ondansetron Odt 4 Mg Tab.Rapdis) 4 mg TRANSLINGU Q6H PRN PRN Reason: nausea/vomiting Last Admin: 04/28/21 09:44 Dose: 4 mg Documented by: LAZ Phenobarbital (Phenobarbital 30 Mg Tablet) 30 mg PO BID [facility] Stop: 04/29/21 21:01 Last Admin: 04/28/21 08:48 Dose: 30 mg Documented by: LAZ Phenobarbital (Phenobarbital 15 Mg Tablet) 15 mg PO DAILY [facility] Stop: 05/01/21 09:01 Thiamine HCl (Thiamine Hcl 100 Mg Tablet) 100 mg PO DAILY [facility] Last Admin: 04/28/21 08:47 Dose: 100 mg Documented by: LAZ Trazodone HCl (Trazodone Hcl 100 Mg Tablet) 300 mg PO BEDTIME PRN PRN Reason: Sleep Last Admin: 04/26/21 20:21 Dose: 300 mg Documented by: YASSINE Labs CBC & Chem 7: 04/28/21 06:14 04/28/21 06:14 Labs: Laboratory Results - last 24 hr 04/28/21 04/28/21 06:14 06:14 MCV 96.5 MCH 34.1 H MCHC 35.3 RDW 11.9 Plt Count 191 MPV 10.1 Immature Gran % (Auto) 0.2 Neut % (Auto) 82.5 H Lymph % (Auto) 9.6 L [facility] % (Auto) 7.3 Eos % (Auto) 0.2 Baso % (Auto) 0.2 Lymph # (Auto) 0.6 L [facility] # (Auto) 0.4 Eos # (Auto) 0.0 Baso # (Auto) 0.0 Abs Immat Gran (auto) 0.01 Absolute Neuts (auto) 4.9 Absolute Nucleated RBC 0.000 Nucleated RBC % (auto) 0.0 Anion Gap 13 Estim Creat Clear Calc 181.5 Estimated GFR > 60 Random Glucose 98 Calcium 9.4 Magnesium 1.9 Microbiology Microbiology Results: Microbiology 04/25/21 20:38 Blood Culture - Preliminary Blood - Venous No growth after 48 hours. 04/25/21 19:09 Blood Culture - Preliminary Blood - Venous No growth after 48 hours. Assessment and Plan (1) Alcohol withdrawal syndrome: Status: Acute Plan hospital d#4 36yo M with AUD admitted to ICU for severe EtOH withdrawal requiring midazolam + dexmetetomidine IV infusions, stepped down to [facility] 04/27/21 on phenobarbital taper # EtOH withdrawal - phenobarbital taper, no benzos # AUD - vitamins, Addiction Medicine consult # alcoholic gastritis - PPI # hypoK - replete PO, recheck in am # VTE ppx - LMWH Quality Stroke Does the patient have a stroke diagnosis?: No VTE Prior VTE?: No VTE Risk Level:: Medical - low VTE Device Contraindication: N/A - Device Ordered VTE Drug Contraindication: N/A - Med Ordered
--- NOTE | 2021-04-28 11:04 | MHC.RECOVRN ---
Met with pt in 461 after consult placed to CARE Team and Addiction Medicine for alcohol use. Pt in bed, awake, alert, anxious but engaged in conversation. Pt reports alcohol use, approx 4 double mixed drinks daily x 2 years. Pt began drinking at age 16, however, began using it as a coping mechanism for anxiety around 2009. 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 Pt plans to take SHAUN from school. Pts current goal is to reduce alcohol use to one or two glasses of wine with dinner. Pt denies family hx of SATHISH. Pt has had one alcohol withdrawal related seizure approx 10 years ago and was subsequently hospitalized. Pt denies ATS admissions or treatment for AUD. Pt is not interested in CSS/residential program, AA, or high school coach at this time. Pt contemplating moving closer to family in [place] in order to have more support in recovery. Pt does have fiance here for support. Discussed medications for AUD with pt, pt interested in initiation of naltrexone. Pt has pscyhiatric providers, including a therapist that has been working with pt forever. Pt possibly interested in PHP. Pt is interested in receiving resources regarding all that was discussed, t/w will provide later today as pts Opal noonan, arrived to the hospital to visit and pt would like to discuss recovery privately. Pt denies questions or concerns at this time. Will continue to follow. Discussed with Aparna Holcomb APRN.
--- NOTE | 2021-04-28 13:46 | MHC.CM.PN ---
PT recommends Outpatient services and Patient hoping for STR. SNF search has been initiated and CM will continue to follow.
--- NOTE | 2021-04-28 15:29 | HO.ADDICT_ITS ---
History of Present Illness Date of Service: 04/28/2021 Chief Complaint: Alcohol Withdrawal Reason for Consult: alcohol use disorder Requesting physician: Dorian Metcalf Discussed with referring provider: Yes Sources of Information: patient interviewed and chart reviewed Additional Sources of Information: Recovery support RN HPI Narrative: Patient is a 36 year old male currently medically admitted with alcohol withdr awal delirium Delirium has resolved. 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 Has never been in treatment for AUD and has never trialed any medications. Has experienced ETOH withrawal seizure in the past Denies any other substance use Engaged with providers Met with patient reviewed medication--goals of treatment, side effects, dosing, etc. Discussed additional recovery supports Patient was provided with resources requested including PHP/IOP information, and recovery coaching information Past Psychiatric History: Has a therapist since 2005, Suha Nava. has a current psychiatric provider, ELIAZAR Devlin. Review of Systems Constitutional: Reports as per HPI and Reports no additional constitutional complaints Diagnostics Vital Signs (24Hr): Vital Signs - 24 hr 04/27/21 18:27 04/27/21 18:56 04/27/21 21:14 Temperature 100.5 F H 99.5 F Pulse Rate 104 H Respiratory Rate 16 20 Blood Pressure 117/70 Pulse Oximetry 97 04/27/21 23:48 04/28/21 03:29 04/28/21 07:18 Temperature 98.6 F 98.7 F 97.5 F Pulse Rate 117 H 110 H 105 H Respiratory Rate 19 16 18 Blood Pressure 131/87 144/89 H 135/86 Pulse Oximetry 98 98 98 04/28/21 11:15 04/28/21 15:13 Temperature 98.1 F 98.6 F Pulse Rate 116 H 120 H Respiratory Rate 18 15 Blood Pressure 137/94 H 160/90 H Pulse Oximetry 97 98 BMI result Body Mass Index 22.3 Labs Results: 04/28/21 06:14 04/28/21 06:14 Labs: Laboratory Results - last 48 hr 04/27/21 04/27/21 04/28/21 07:34 07:34 06:14 WBC 6.1 5.9 RBC 3.04 L 3.67 L D Hgb 10.3 L 12.5 L D Hct 30.1 L 35.4 L MCV 99.0 H 96.5 MCH 33.9 H 34.1 H MCHC 34.2 35.3 RDW 12.4 11.9 Plt Count 177 D 191 MPV 9.1 L 10.1 Immature Gran % (Auto) 0.3 0.2 Neut % (Auto) 81.4 H 82.5 H Lymph % (Auto) 10.6 L 9.6 L Hernando % (Auto) 7.3 7.3 Eos % (Auto) 0.2 0.2 Baso % (Auto) 0.2 0.2 Lymph # (Auto) 0.7 L 0.6 L [place] # (Auto) 0.5 0.4 Eos # (Auto) 0.0 0.0 Baso # (Auto) 0.0 0.0 Abs Immat Gran (auto) 0.02 0.01 Absolute Neuts (auto) 5.0 4.9 Absolute Nucleated RBC 0.000 0.000 Nucleated RBC % (auto) 0.0 0.0 Sodium 136 Potassium 3.0 L D Chloride 99 Carbon Dioxide 23 Anion Gap 17 BUN 12 Creatinine 0.61 Estim Creat Clear Calc 163.9 Estimated GFR > 60 Random Glucose 94 Calcium 9.2 D Phosphorus 2.2 L Magnesium 1.8 Total Bilirubin 1.7 H AST 55 H ALT 30 Alkaline Phosphatase 44 Total Protein 5.6 L Albumin 4.1 D 04/28/21 06:14 WBC RBC Hgb Hct MCV MCH MCHC RDW Plt Count MPV Immature Gran % (Auto) Neut % (Auto) Lymph % (Auto) [place] % (Auto) Eos % (Auto) Baso % (Auto) Lymph # (Auto) [place] # (Auto) Eos # (Auto) Baso # (Auto) Abs Immat Gran (auto) Absolute Neuts (auto) Absolute Nucleated RBC Nucleated RBC % (auto) Sodium 133 L Potassium 3.2 L Chloride 95 L Carbon Dioxide 28 Anion Gap 13 BUN 5 L D Creatinine 0.55 Estim Creat Clear Calc 181.5 Estimated GFR > 60 Random Glucose 98 Calcium 9.4 Phosphorus Magnesium 1.9 Total Bilirubin AST ALT Alkaline Phosphatase Total Protein Albumin Imaging Radiology Impressions: ITS Impressions Chest X-Ray 04/25/21 18:34 IMPRESSION: Unremarkable examination. Head CT 04/25/21 21:10 IMPRESSION: No acute intracranial pathology. Abdomen/Pelvis CT 04/25/21 22:10 IMPRESSION: Enlarged fatty liver. Thickening of the duodenum with some mild periduodenal inflammatory change suggestive of duodenitis or possibly duodenal ulcer disease. Fleischner guidelines were followed. Chest CT 04/25/21 22:10 IMPRESSION: Enlarged fatty liver. Thickening of the duodenum with some mild periduodenal inflammatory change suggestive of duodenitis or possibly duodenal ulcer disease. Fleischner guidelines were followed. Mental Status Exam Mental Status Exam Patient Appearance: Appropriate Patient Orientation: Person, Place, Time and Situation Level of Consciousness: Awake and Appropriate Patient Behavior: Appropriate and Cooperative Mood Description: Anxious Affect Description: Appropriate and Anxious Patient Cognition Impaired: No Thought Process: Goal Oriented Thought Content: positive for Goal Oriented Judgement: Fair Medications Medications Current Medications Acetaminophen (Acetaminophen 325 Mg Tablet) 650 mg PO Q4H PRN PRN Reason: Pain, Moderate (Pain Scale 4-6 Last Admin: 04/27/21 16:50 Dose: 650 mg Documented by: Al Hydroxide/Mg Hydroxide (Magnesium Hydrox/Alum Hydrox 30 Ml Oral.Susp) 30 ml PO Q6H PRN PRN Reason: acid reflux Last Admin: 04/27/21 09:53 Dose: 30 ml Documented by: Enoxaparin Sodium (Enoxaparin Sodium 40 Mg/0.4 Ml Syringe) 40 mg SUBCUT Q24H [facility] Last Admin: 04/28/21 00:12 Dose: 40 mg Documented by: Folic Acid (Folic Acid 1 Mg Tablet) 1 mg PO DAILY [facility] Last Admin: 04/28/21 08:48 Dose: 1 mg Documented by: Hydroxyzine HCl (Hydroxyzine Hcl 50 Mg Tablet) 50 mg PO Q6H PRN PRN Reason: anxiety Last Admin: 04/28/21 09:45 Dose: 50 mg Documented by: Magnesium Oxide (Magnesium Oxide 400 Mg Tablet) 800 mg PO DAILY [facility] Last Admin: 04/28/21 08:48 Dose: 800 mg Documented by: Medication (No Benzodiazepines) 1 each MISCELLANE DAILY [facility] Morphine Sulfate (Morphine Sulfate 2 Mg/Ml Cartridge) 2 mg IVPUSH Q6H PRN; Protocol PRN Reason: Pain, Severe (Pain Scale 7-10) Last Admin: 04/28/21 00:13 Dose: 2 mg Documented by: Multivitamins/Vitamin C (Multivitamin Tablet) 1 tab PO DAILY [facility] Last Admin: 04/28/21 08:48 Dose: 1 tab Documented by: Omeprazole (Omeprazole 20 Mg Capsule.) 20 mg PO BID@0630,1630 [facility] Last Admin: 04/28/21 08:47 Dose: 20 mg Documented by: Ondansetron HCl (Ondansetron Odt 4 Mg Tab.Rapdis) 4 mg TRANSLINGU Q6H PRN PRN Reason: nausea/vomiting Last Admin: 04/28/21 09:44 Dose: 4 mg Documented by: Phenobarbital (Phenobarbital 30 Mg Tablet) 30 mg PO BID [facility] Stop: 04/29/21 21:01 Last Admin: 04/28/21 08:48 Dose: 30 mg Documented by: Phenobarbital (Phenobarbital 15 Mg Tablet) 15 mg PO DAILY [facility] Stop: 05/01/21 09:01 Thiamine HCl (Thiamine Hcl 100 Mg Tablet) 100 mg PO DAILY [facility] Last Admin: 04/28/21 08:47 Dose: 100 mg Documented by: Trazodone HCl (Trazodone Hcl 100 Mg Tablet) 300 mg PO BEDTIME PRN PRN Reason: Sleep Last Admin: 04/26/21 20:21 Dose: 300 mg Documented by: Allergies Allergies Allergy/AdvReac Type Severity Reaction Status Date / Time No Known Allergies Allergy Verified 04/25/21 18:27 Assessment & Plan Assessment & Plan (1) Alcohol use disorder, severe, dependence: Status: Acute Code(s): F10.20 - Alcohol dependence, uncomplicated Assessment and Plan: * Naltrexone 50mg QD to start at discharge. Rx to be sent to pharmacy * RSRN to follow up in AM * Patient will request provider continue prescribing, and if not, has been provided with CCC information I spent ___40___ minutes with the patient and/or on the patient floor today, greater than?50% of which was spent counseling/coordinating care. [facility] Past Medical History Medical History (Updated 04/28/21 @ 15:53 by Aparna Holcomb CNP) Anxiety Depressed Social History Social History Household Members: None Housing: House Do you presently have visiting nurse or other home services: No Unable to assess alcohol history related to: Unable to respond Patient Tobacco Use Status: Tobacco use Unknown Use of substances other than those prescribed or required for medical reasons: Unknown Currently Displaying Signs/Symptoms of Drug Intoxication Withdrawal: No Advance Directives: No Advance Directives Information Provided: No Do you have thoughts of harming others: None Do you have a plan to hurt others: No Plan Recently lost weight without trying: Unsure Nutrition Risks: On aspiration precautions Poor oral hygiene: Yes service: No Current occupational status: unemployed
[2021-04-28] MEDS: Acetaminophen 325 MG TABLET 650 MG PO (15:34)
--- NOTE | 2021-04-28 16:03 | MHC.CM.PN ---
CM met with Patient and his Fiance regarding dc planning. It appears that Patient will be dc tomorrow and is interested in the Partial Hospitalization Program R/T his ETOH. AVI has spoken with Care Team/Kate and requested that they meet with Patient to give him specific option/information.AIV will continue to follow.
[2021-04-28] MEDS: traZODone HCL 100 MG TABLET 300 MG PO (21:59)
[2021-04-29] MEDS: Enoxaparin Sodium 40 MG/0.4 ML SYRINGE SUBCUT (00:28)
[2021-04-29] MEDS: hydrOXYzine HCL 50 MG TABLET PO ×2 (03:11→09:30)
[2021-04-29 04:00] VITALS: BP 113/72; PULSE 115; RESP 16; O2SAT 99
[2021-04-29] MEDS: Acetaminophen 325 MG TABLET 650 MG PO (06:02)
[2021-04-29 06:35] LABS: Alanine Aminotransferase 53 U/L (0-40); Albumin Level 4.3 g/dL (3.5-5.0); Alkaline Phosphatase 57 U/L (39-117); Anion Gap 14 (12-20); Aspartate Amino Transferase 76 U/L (5-37); Bilirubin Total 1.1 mg/dL (0.0-1.0); Blood Urea Nitrogen 11 mg/dL (9-16); Calcium 9.5 mg/dL (8.4-10.2); Carbon Dioxide 24 mmol/L (22-29); Chloride 97 mmol/L (96-108); Creatinine Clr Calc Pharmacy 169.2; Estimated Glomerular Filt Rate > 60; Glucose Random 95 mg/dL (60-115); Magnesium 2.1 mg/dL (1.6-2.6); Potassium 3.6 mmol/L (3.3-5.1); Sodium 131 mmol/L (135-145); Total Protein 6.4 g/dL (6.5-8.0)
[2021-04-29 08:00] VITALS: BP 132/90; PULSE 128; RESP 18; TEMP 36.5; O2SAT 97
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
[2021-04-29] MEDS: Thiamine HCL 100 MG TABLET PO (09:30)
[2021-04-29] MEDS: Folic Acid 1 MG TABLET PO (09:30)
[2021-04-29] MEDS: Magnesium Oxide 400 MG TABLET 800 MG PO (09:30)
[2021-04-29] MEDS: Multivitamin TABLET 1 TAB PO (09:30)
[2021-04-29] MEDS: PHENobarbitaL 30 MG TABLET PO (09:30)
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
[2021-04-29 11:01] VITALS: BP 111/81; PULSE 136; RESP 18; TEMP 36.2; O2SAT 97
--- NOTE | 2021-04-29 11:06 | PM.DS ---
DS: Providers Provider Date of Service: 04/29/21 Date of admission: 04/25/21 23:42 Primary care physician: None Physician Consults: 04/27/21 14:56 Consult to Psychiatry Routine Consulting Provider: Psych Covering Reason for consultation: alcohol withdrawal imporving , has anxiety Has provider been notified: No 04/28/21 07:51 Addiction Medicine Routine Consulting Provider: Aparna Holcomb Reason for consultation: etoh Consult to Care Team Routine Comment: Reason for consultation: etoh 04/28/21 17:27 Consult to Care Team Routine Comment: Reason for consultation: Alcohol abuse DS: Diagnosis Discharge Diagnosis (1) Alcohol use disorder, severe, dependence: Status: Acute (2) Alcohol withdrawal syndrome: Status: Acute (3) Alcohol withdrawal delirium: Status: Acute (4) Alcoholic ketoacidosis: Status: Acute (5) Hypokalemia: Status: Acute (6) Alcoholic gastritis: Status: Acute DS: Summary Hospital Course Hospital Course: from admission history and physical by industrial arts public school teacher ADAIR Rutherford, 04/25/21: Patient is a 36-year-old male within no known past medical history who was brought in by ambulance after his friend found him in his home, disheveled, vomit all over the place, multiple heart alcohol bottles strewn about his home.? Patient is unable to recall when his last drink was but he does state he did have a withdrawal seizure approximately 10 years ago.? He is alert and oriented x3 but rambles on with his answers, usually making sense but definitely a little confused.? Patient states he feels like he is dying .? Patient actively vomited once during my exam. In the emergency department, labs showed the patient had a WBC 25.6, APTT 22.3, bicarb 7,? serum osmol 373, lactic acid 8.8, ammonia 50, AST 66, ALT 50,? urine osmolality 629, acetone negative, ETOH 33, U tox negative,? salicylates and acetaminophen negative, UA neg for infection. VBG 7.28/24/89/11/96/-12.7, EKG sinus tach at 149BPM with short [place] 096ms. CIWA 15. CT of the head, chest and abdomen Enlarged fatty liver. Thickening of the duodenum with some mild periduodenal inflammatory change suggestive of duodenitis or possibly duodenal ulcer disease . In the emergency department, patient was giving in 4 mg lorazepam, started on phenobarb protocol, Zofran, 3L LR, 50 meq sodium bicarb, 1 L D5 1/2 NS, 1 mg folic acid, 500 mg thiamine,? vanco and Zosyn however patient does not appear sepic. Repeat metabolic panel showed bicarb improved up to 19, lactic acid down to 5.4. Elevated lactic likely 2/2 post ictal period, pt does not appear to be septic, no source of infection. Discussed case with Dr. Springer, he agreed patient should be admitted, he is actively withdrawing although his alcohol level is still very high. ? Will hold off on intubation and less patient becomes truly delirious,? as of now, he is safe to maintain his airway. ? Will start on Versed drip to control withdrawal symptoms/avoid seizure. This 36yo M with AUD wa sadmitted to ICU for severe EtOH withdrawal requiring midazolam + dexmetetomidine IV infusions. He was stepped down to [facility] [place] [place] 04/27/21 on phenobarbital taper. Addiction Medicine and CARE Team were consulted. He was discharged home with prescriptions for naltrexone for AUD, PPI for alcoholic gastritis, and vitamins. He was referred to a partial hospitalization program for alcohol use disorder. Time Spent with Patient Time attestation: Total time spent providing and/or coordinating discharge services: Discharge coordination time: Greater than 30 minutes Quality: Stroke Does the patient have a stroke diagnosis?: No Physical Exam Vital Signs: Vital Signs: Last Vital Signs Temp 97.1 F 04/29/21 11:01 Pulse 136 H 04/29/21 11:01 Resp 18 04/29/21 11:01 BP 111/81 04/29/21 11:01 Pulse Ox 97 04/29/21 11:01 BMI result Body Mass Index 22.3 Gen: in no acute distress HEENT: sclera anicteric, moist mucus membranes Neck: supple Lungs: clear to auscultation bilaterally Heart: regular rate and rhythm, no murmurs Abd: soft, non-tender, non-distended Ext: no edema Skin: warm/well-perfused Neuro: alert and oriented x3, no focal findings Psych: appropriate affect DS: Data Data Completed and Pending Completed studies during hospitalization [Text1]: Laboratory Results WBC 5.9 X10*3/uL (4.8-10.8) 04/28/21 06:14 RBC 3.67 X10*6/uL (4.60-5.80) L D 04/28/21 06:14 Hgb 12.5 g/dl (14.0-18.0) L D 04/28/21 06:14 Hct 35.4 % (42.0-52.0) L 04/28/21 06:14 MCV 96.5 fL (80.0-98.0) 04/28/21 06:14 MCH 34.1 pg (27.0-33.0) H 04/28/21 06:14 MCHC 35.3 g/dl (31.0-36.0) 04/28/21 06:14 RDW 11.9 % (11.0-16.0) 04/28/21 06:14 Plt Count 191 X10*3/uL (160-400) 04/28/21 06:14 MPV 10.1 fL (9.4-12.4) 04/28/21 06:14 Immature Gran % (Auto) 0.2 % (0.0-0.4) 04/28/21 06:14 Neut % (Auto) 82.5 % (45-73) H 04/28/21 06:14 Lymph % (Auto) 9.6 % (20-40) L 04/28/21 06:14 Duc[place]ne % (Auto) 7.3 % (2-11) 04/28/21 06:14 Eos % (Auto) 0.2 % (0-4) 04/28/21 06:14 Baso % (Auto) 0.2 % (0-2) 04/28/21 06:14 Lymph # (Auto) 0.6 X10*3/uL (1.2-4.9) L 04/28/21 06:14 Duc[place]ne # (Auto) 0.4 X10*3/uL (0.1-1.2) 04/28/21 06:14 Eos # (Auto) 0.0 X10*3/uL (0.0-0.4) 04/28/21 06:14 Baso # (Auto) 0.0 X10*3/uL (0.0-0.2) 04/28/21 06:14 Abs Immat Gran (auto) 0.01 X10*3/uL (0.00-0.03) 04/28/21 06:14 Absolute Neuts (auto) 4.9 x10*3/uL (2.0-8.3) 04/28/21 06:14 Absolute Nucleated RBC 0.000 X10*3/uL (0.0-0.012) 04/28/21 06:14 Nucleated RBC % (auto) 0.0 /100WBC (0.0-0.2) 04/28/21 06:14 Smear Tech's Comments VERIFIED 04/25/21 20:38 PT 10.8 SEC (9.9-13.0) 04/25/21 19:10 INR 1.0 (0.9-1.1) 04/25/21 19:10 APTT 22.3 SEC (24.1-38.0) L 04/25/21 19:10 VBG pH 7.55 (7.32-7.43) H 04/26/21 06:19 VBG pCO2 25 mmHg 04/26/21 06:19 VBG pO2 52 mmHg 04/26/21 06:19 VBG HCO3 22 mmol/L (22-26) 04/26/21 06:19 VBG O2 Saturation 88.0 % 04/26/21 06:19 VBG Base Excess 1.1 mmol/L 04/26/21 06:19 Sodium 131 mmol/L (135-145) L 04/29/21 06:05 Potassium 3.6 mmol/L (3.3-5.1) 04/29/21 06:05 Chloride 97 mmol/L (96-108) 04/29/21 06:05 Carbon Dioxide 24 mmol/L (22-29) 04/29/21 06:05 Anion Gap 14 (12-20) 04/29/21 06:05 BUN 11 mg/dL (9-16) D 04/29/21 06:05 Creatinine 0.59 mg/dL (0.5-1.4) 04/29/21 06:05 Estim Creat Clear Calc 169.2 04/29/21 06:05 Estimated GFR > 60 04/29/21 06:05 POC Glucose 153 mg/dL (60-115) H 04/25/21 19:09 Random Glucose 95 mg/dL (60-115) 04/29/21 06:05 Osmolality 373 mosm/kg (281-305) H 04/25/21 20:38 Lactic Acid 2.4 mmol/L (0.5-2.0) H* 04/26/21 06:20 Lactic Acid F/U @ 2Hr 1.3 mmol/L (0.5-2.0) 04/26/21 09:24 Lactic Acid F/U @ 4Hr 5.0 mmol/L (0.5-2.0) H* 04/26/21 01:11 Calcium 9.5 mg/dL (8.4-10.2) 04/29/21 06:05 Phosphorus 2.2 mg/dL (2.7-4.5) L 04/27/21 07:34 Magnesium 2.1 mg/dL (1.6-2.6) 04/29/21 06:05 Total Bilirubin 1.1 mg/dL (0.0-1.0) H 04/29/21 06:05 Direct Bilirubin 0.4 mg/dL (0.0-0.5) 04/26/21 05:17 AST 76 U/L (5-37) H 04/29/21 06:05 ALT 53 U/L (0-40) H 04/29/21 06:05 Alkaline Phosphatase 57 U/L (39-117) D 04/29/21 06:05 Ammonia 30 umol/L (13-55) 04/26/21 05:17 Total Creatine Kinase 53 U/L (38-174) 04/25/21 20:38 Troponin I High Sens < 3.5 ng/L (<3.5-35.0) 04/25/21 20:38 B-Natriuretic Peptide 14 pg/mL (<100) 04/25/21 20:38 Total Protein 6.4 g/dL (6.5-8.0) L 04/29/21 06:05 Albumin 4.3 g/dL (3.5-5.0) 04/29/21 06:05 Lipase 29 U/L (8-78) 04/25/21 20:38 Vitamin B12 452 pg/mL (200-900) 04/25/21 20:38 Folate 2.3 ng/mL (> or = 4.0) L 04/25/21 20:38 Urine Color YELLOW 04/25/21 21:39 Urine Appearance CLEAR 04/25/21 21:39 Urine pH 6.0 (5.0-8.0) 04/25/21 21:39 Ur Specific [place] >= 1.030 (1.005-1.025) H 04/25/21 21:39 Urine Protein NEG MG/DL (NEG-TRACE) 04/25/21 21:39 Urine Glucose (UA) NEG MG/DL (NEG) 04/25/21 21:39 Urine Ketones 40 MG/DL (NEG) 04/25/21 21:39 Urine Blood TRACE (NEG) 04/25/21 21:39 Urine Nitrite NEG (NEG) 04/25/21 21:39 Ur Leukocyte Esterase NEG (NEG) 04/25/21 21:39 Urine RBC 5-9 /HPF (0) H 04/25/21 21:39 Urine WBC 1-4 /HPF (0-4) 04/25/21 21:39 Ur Squamous Epith Cells 1+ /LPF 04/25/21 21:39 Urine Bacteria 1+ /LPF 04/25/21 21:39 Hyaline Casts 5-9 /LPF 04/25/21 21:39 Granular Casts 0-2 /LPF 04/25/21 21:39 Urine Mucus 2+ /LPF 04/25/21 21:39 Urine Osmolality 629 mosm/kg (373-1093) 04/25/21 21:40 Salicylates < 5.0 mg/dL (15-30) L 04/25/21 20:38 Urine Opiates Screen Not Detected (Not Detect) 04/25/21 21:39 Urine Fentanyl Screen Not Detected (Not Detect) 04/25/21 21:39 Acetaminophen < 1 mcg/mL (<30) 04/25/21 20:38 Ur Barbiturates Screen Not Detected (Not Detect) 04/25/21 21:39 Ur Phencyclidine Scrn Not Detected (Not Detect) 04/25/21 21:39 Ur Amphetamines Screen Not Detected (Not Detect) 04/25/21 21:39 U Benzodiazepines Scrn Not Detected (Not Detect) 04/25/21 21:39 Urine Cocaine Screen Not Detected (Not Detect) 04/25/21 21:39 U Marijuana (THC) Screen Not Detected (Not Detect) 04/25/21 21:39 Ethyl Alcohol 303 mg/dL H* 04/25/21 19:08 Acetone, Qual Negative (Negative) 04/25/21 20:38 COVID-19 (ROBERT) Negative (Negative) 04/25/21 20:27 COVID-19 Clin Com See Note 04/25/21 20:27 Impressions Chest X-Ray 04/25/21 18:34 IMPRESSION: Unremarkable examination. Head CT 04/25/21 21:10 IMPRESSION: No acute intracranial pathology. Abdomen/Pelvis CT 04/25/21 22:10 IMPRESSION: Enlarged fatty liver. Thickening of the duodenum with some mild periduodenal inflammatory change suggestive of duodenitis or possibly duodenal ulcer disease. Fleischner guidelines were followed. Chest CT 04/25/21 22:10 IMPRESSION: Enlarged fatty liver. Thickening of the duodenum with some mild periduodenal inflammatory change suggestive of duodenitis or possibly duodenal ulcer disease. Fleischner guidelines were followed. Discharge Plan Discharge Patient Disposition: Home, Self-Care Discharge Diagnosis: alcohol withdrawal, alcohol use disorder Referrals: [facility] [Provider Group] - 1 Week Physician,[facility] [Primary Care Provider] - 1 Week Discharge Medications: New naltrexone 50 mg tablet 50 mg PO DAILY Qty: 30 0RF Rx Instructions: take 1/2 tab daily for 2 days, then increase to one tab daily multivitamin [Daily-Danielle] Tablet 1 tab PO DAILY Qty: 30 0RF folic acid 1 mg Tablet 1 mg PO DAILY Qty: 30 0RF thiamine mononitrate (vit B1) 100 mg Tablet 100 mg PO DAILY Qty: 30 0RF omeprazole 20 mg Capsule,Delayed Release(Dr/Ec) 20 mg PO BID@0630,1630 Qty: 60 0RF Continued trazodone 100 mg tablet 0 - 3 tab PO BEDTIME 0RF dextroamphetamine-amphetamine 20 mg tablet 0 - 3 tab PO DAILY PRN (Reason: Agitation) 0RF lorazepam 1 mg tablet 1 tab PO DAILY PRN (Reason: anxiety attack) 0RF sildenafil (pulm.hypertension) 20 mg tablet 3 tab PO DAILY PRN (Reason: Sexual Activity) 0RF Discharge Orders: Discharge Order (Routine); Ordered 04/29/21 Ordered By: Dorian Metcalf Diet: advance to usual diet Activity on Discharge: As tolerated Stand Alone Forms: Patient Portal Discharge page Care Plan Goals: sobriety Health Concerns: alcohol withdrawal, alcohol use disorder Plan of Treatment: avoid alcohol partial hospitalization program take naltrexone as prescribed take vitamins as prescribed take omeprazole as prescribed establish primary care as soon as possible follow up with Addiction Medicine at [facility] in 1-2 weeks Assessment: see Discharge Summary Patient Instructions: Alcohol Intoxication (ED), Abuse of Alcohol (DC), Alcohol Withdrawal (ED), Alcohol Dependence (DC), Alcohol Use Disorder (DC)
--- NOTE | 2021-04-29 11:14 | MHC.CM.PN ---
Patient has been medically cleared for dc to home today, self care.(PLEASE SEE CARE TEAM NOTES).
--- NOTE | 2021-05-01 10:30 | MHC.CARE ---
Pt called CARE Team on 04/30/21 requesting to speak with the clinician that saw him on 04/30/21.? This clinician contacted him on 05/01/21.? Pt was following up on the PHP referral that was submitted for him on 04/29.? Pt was advised that the referral was submitted and would possibly receive a phone call from [facility] next week some time.? Pt stated that he was doing ?Very well? and was thankful stating ?You people at the hospital saved my life and were so kind.? Pt was advised that the door remains open for Recovery resources should he feel the time was right for him to enter recovery. Of note, the number for pt in the chart is the wrong number.? CARE Team contacted pt?s former girlfriend for the correct number, it is .? CARE Team forwarded this number to [facility] and contacted patient registration to have the number changed.
== END 2021-04-29 12:34 | disposition home or self-care (01) | DRG 241 ==
LOC: HO.ED 23:40 → HO.EDOVER 04-26 00:07 → HO.ICU 04-26 00:39 → HO.IMC 04-27 13:10
PROVIDERS: Internal Medicine Pulmonary Disease; Nurse Practitioner Family; Registered Nurse Community Health; Admitting Provider Physician Assistant; Emergency Provider Internal Medicine; Visit Provider Family Medicine
DX: K29.20 Alcoholic gastritis without bleeding (principal); F10.221 Alcohol dependence with intoxication delirium; E87.2 Acidosis; F33.1 Major depressive disorder, recurrent, moderate; K76.0 Fatty (change of) liver, not elsewhere classified; F41.9 Anxiety disorder, unspecified; E87.6 Hypokalemia; Z20.822 Contact with and (suspected) exposure to COVID-19; Z79.899 Other long term (current) drug therapy
CPT/HCPCS: 36415; 70450; 71045; 71250; 74176; 80048; 80053; 80076; 80143; 80179; 80307; 81001; 81003; 82009; 82077; 82140; 82550; 82607; 82746; 82803; 82947; 83605; 83690; 83735; 83880; 83930; 83935; 84100; 84484; 85025; 85610; 85730; 87040; 87635; 93005; 96361; 96365; 96367; 96372; 96375; 96376; 97162; 99285; 99291; 99292; C1758; J1650; J2060; J2250; J2270; J2405; J2543; J2560; J3370; J3411; P9047

== ENCOUNTER 2021-05-21 09:45 | Outpatient (RCR) | payer OTHER, SELFPAY ==
[2021-05-19 11:02] VITALS: BMI 22.4
--- NOTE | 2021-05-19 12:58 | PC.ADMIT ---
Patient is a 21 year old single male who lives alone with a diagnosis of Major Depressive Disorder and ETOH use disorder, severe. Patient self referred to [facility] d/t struggling with increased depression and anxiety. Prior to admission to the program patient was hospitalized medically [place] [facility] [place]21-04[place]29/21 d/t acute ETOH withdrawal with delerium, ketoacidosis, hypokalemia, and ETOH induced gastritis. Patient reportedly was brought to the hospital via ambulance after a friend found him with vomit all over himself. Patient stated that his drinking started to gradually increase in March from drinking 2 drinks daily to 4 or more daily. Reports longest period of abstinence is a few weeks. Patient reports history of seizure 10 years ago. Patient reports self medicating with ETOH d/t stressors including break up with fiance, dealing with stress and fear related to COVID and college policies surrounding COVID. 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 Patient reports he has maintained sobriety from ETOH since discharge from the hospital with the exception of having one beer on 05/17/21. Patient denied cravings at present and denied sxs of ETOH withdrawal. Patient reports he stopped taking Naltrexone 2 days ago as he was experiencing depression thought to be caused by the medication however after talking with patient he reports he has been depressed prior to starting the medication thus he restarted the medication today. Denied SI or thoughts to harm himself. Recommended patient, in addition to [facility], attend AA meetings for more support while in the program. Patient agreed. Patient is alert and oriented x4. Calm and cooperative. Presents with depressed mood, anxious affect. Denied SI or thoughts to harm himself. Denied current ETOH cravings. Medications reconciled with patient, patient's pharmacy , and [facility] medical records.
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
--- NOTE | 2021-05-20 15:38 | PC.NURSE ---
Case opened in treatment team.
--- NOTE | 2021-05-21 10:16 | PC.NURSE ---
Patient left message for staff to call him back on 05/20/21. I spoke to patient and he stated after taking the Naltrexone yesterday he felt tired and was yawning. Stated he did not sleep well last night. He stated he felt, crazy and psychotic Asked patient what psychotic symptoms was he having and he stated he was crying uncontrollably. He stated he was very depressed to the point he felt like a boa constrictor was around his neck. Stated he asked his best friend to stay over the night for support. Stated he feels better this morning however stated he was tired d/t not sleeping well and would not be able to attend. Patient denied SI or thoughts to harm or kill himself. Denied having cravings from ETOH. Patient attributes his symptoms to Naltrexone. Patient not continuing Naltrexone. Patient did commit to coming to the program for the duration of treatment. Patient was opened in treatment team. I spoke to patient this morning and he stated he may be going to [facility] for treatment on Monday and he would keep us informed regarding this. Team is aware.
--- NOTE | 2021-05-21 14:29 | PC.NURSE ---
I called and spoke to pt. He and his therapist are working on admitting him to [facility] dual diagnosis residential program. He said [facility] has requested that he attend their detox first, and he is planning to do this. I asked him if I can help in any way, and he said not for now. He took down my name, number, and email. He asked that we not discharge him right away, as he doesn't have absolute confirmation of his admission to [facility] yet. He has made arrangements for someone to look after his cat while he's gone. He was a bit tearful, but reports feeling quite hopeful despite some fear.
--- NOTE | 2021-05-21 15:34 | HO.PHPPROGNO ---
Subjective Subjective Date of Service: 05/21/21 Reason For Visit: alcohol use d/o; unspecified depressive d/o Guardianship: No Medical Problems Affecting Mental Status: No Interim History: Patient states it has been a struggle for me . Describes poor sleep, increased anxiety, intrusive thoughts, cravings. Cpontinues with dysphoric mood, tearful during encounter. Denies SI/HI. States his fiance and therapist have contacted [facility], and working to get him into their detox with plan to go [facility], a substance use/Co occurring disorder program through [facility]. Medication Compliance: Intermittent Side effects from medications: Yes (naltrexone, did not like how it made him feel) Attending Groups: Yes Review of Systems Acute medical concerns: No Medical Review of Systems: unchanged Review of Systems Review of Systems Yes all other systems are reviewed and are negative Constitutional: Reports no additional constitutional complaints Diagnostics Vital Signs (24Hr): BMI result Body Mass Index 22.4 Assessment & Plan Assessment & Plan (1) Major depressive disorder, recurrent severe without psychotic features: Status: Acute Code(s): F33.2 - Major depressive disorder, recurrent severe without psychotic features Assessment and Plan: Patient continues with dysphoric mood, states ?it has been a struggle for me ?. 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 Reports that he feels consumed with fear, and that he has been drinking more in order to deal with his fear. Reports he had been sleeping fairly well, but not currently. Had been prescribed naltrexone from his inpatient stay, reports that he does not like the side effects. He denies any thought of harm to self or others, and states ?I do not want to ?. He has had mood lability, intrusive thoughts, continued depressive symptoms. Discussed medications in depth. He does continue with lorazepam once daily p.r.n.. He requested refill of Adderall. I explained I did not believe this would be beneficial to him, as he does not carry a diagnosis of ADD/ADHD. He has had poor appetite, and has lost weight over the past several months. Discussed a trial of quetiapine. He was willing to trial a low dose of the medication. His therapist and sarane have been working with [facility], as a possible admit to their detox and then to for inside residential substance use treatment program. He states that they may accept him as soon as Monday but he is not yet sure. (2) GAIL (generalized anxiety disorder): Status: Acute Code(s): F41.1 - Generalized anxiety disorder (3) Alcohol use disorder, severe, dependence: Status: Acute Code(s): F10.20 - Alcohol dependence, uncomplicated Assessment and Plan: Reports not taking naltrexone, due to side effects. He states he is not drinking. Plan 1. Start quetiapine 25mg TID prn. Patient has been advised that if he feels too sedated during day, he could break tab in half and take 12.5. 2. Continue with current [facility] plan of care. 3. Follow-up as per protocol. Patient educated on: diagnosis, medication risk/benefits, substance abuse and therapeutic strategies Informed Consent: understands Reason for contiued partial hosp. stay Substantial Risk for: inability to function, rapid decompensation and med/psych decompensation Certification I certify that partial hospital treatment is medically necessary due to the symptoms and problems resulting from the patient's mental illness and the failure to treat the patient at the partial hospital level of care would likely result in the patient requiring inpatient psychiatric care which could not be prevented at a less intensive level of care. I spent minutes with the patient and/or on the patient floor today, greater than?50% of which was spent counseling/coordinating care. Discharge Plan Discharge Attending provider: Kory Ospina Medications: New quetiapine 25 mg tablet 25 mg PO TID MDD 75mg PRN (Reason: anxiety) Qty: 21 0RF Rx Instructions: if too sedating during day, try 1/2 tab (12.5mg). No Action famotidine 20 mg Tablet 20 mg PO DAILY 0RF Label Comments: Patient stated he was having side effects from Omeprazole and is taking OTC Famotidine 20 mg daily. trazodone 100 mg tablet 0 - 3 tab PO BEDTIME 0RF dextroamphetamine-amphetamine 20 mg tablet 0 - 3 tab PO DAILY PRN (Reason: ADHD) 0RF Label Comments: Patient stated last use 1 week ago. Rx Instructions: Last filled 03/11/21 90 day supply lorazepam 1 mg tablet 1 tab PO DAILY PRN (Reason: anxiety attack) 0RF sildenafil (pulm.hypertension) 20 mg tablet 3 tab PO DAILY PRN (Reason: Sexual Activity) 0RF multivitamin [Daily-Danielle] Tablet 1 tab PO DAILY Qty: 30 0RF folic acid 1 mg Tablet 1 mg PO DAILY Qty: 30 0RF thiamine mononitrate (vit B1) 100 mg Tablet 100 mg PO DAILY Qty: 30 0RF Telehealth Telehealth Location of provider rendering services: practice address Location of patient: address on file Patient Identification confirmed using: Name, : Yes Telehealth method: video Patient verbally consented to treatment: Yes Patient verbally consented to billing insurance company: Yes Patient informed of any privacy concerns related to visit: Yes Time spent with patient (mins): 25
--- NOTE | 2021-05-24 15:33 | PC.NURSE ---
I called and LM for pt's therapist, Suha Nava ([phone]) confirming his discharge from [facility].
--- NOTE | 2021-05-25 10:52 | PC.NURSE ---
Per staff Cathy Preston patient called and left a message late Monday05/21/21 stating he will be at [facility] starting on Monday. Patient closed in team on 05/24/21.
== END 2021-05-25 23:59 | disposition home or self-care (01) ==
LOC: HO.PHPA 09:45
PROVIDERS: Visit Provider Psychiatry & Neurology Psychiatry
DX: F33.2 Major depressive disorder, recurrent severe without psychotic features (principal); F41.1 Generalized anxiety disorder; F10.20 Alcohol dependence, uncomplicated
CPT/HCPCS: 90791; 90853

== ENCOUNTER 2022-08-26 16:06 | Outpatient (REF) | payer BC, SELFPAY ==
[2022-08-26 16:24] LABS: MANUAL DIFF FLAG NO
[2022-08-26 16:56] LABS: Basophils Percent Auto 0.6 % (0-2); Eosinophils Absolute Auto 0.1 X10*3/uL (0.0-0.4); Eosinophils Percent Auto 1.7 % (0-4); Hematocrit 43.7 % (42.0-52.0); Hemoglobin 15.2 g/dl (14.0-18.0); Imm Gran Abs Auto 0.01 X10*3/uL (0.00-0.03); Imm Gran Pct Auto 0.3 % (0.0-0.4); Lymphocytes Absolute Auto 1.4 X10*3/uL (1.2-4.9); Lymphocytes Percent Auto 40.5 % (20-40); Mean Corpuscular HGB Conc 34.8 g/dl (31.0-36.0); Mean Corpuscular Volume 86.2 fL (80.0-98.0); Mean Platelet Volume 9.7 fL (9.4-12.4); Monocytes Absolute Auto 0.5 X10*3/uL (0.1-1.2); Monocytes Percent Auto 14.9 % (2-11); Neutrophils Absolute Auto 1.5 x10*3/uL (2.0-8.3); Platelet Count 323 X10*3/uL (160-400); Red Blood Count 5.07 X10*6/uL (4.60-5.80); Red Cell Distribution Width 12.9 % (11.0-16.0); White Blood Count 3.5 X10*3/uL (4.8-10.8)
[2022-08-26 17:15] LABS: Estimated Average Glucose 97 mg/dL
[2022-08-26 17:19] LABS: Alanine Aminotransferase 20 U/L (0-40); Albumin Level 4.6 g/dL (3.5-5.0); Alkaline Phosphatase 65 U/L (39-117); Anion Gap 12 (12-20); Aspartate Amino Transferase 21 U/L (5-37); Bilirubin Total 0.6 mg/dL (0.0-1.0); Blood Urea Nitrogen 11 mg/dL (9-16); Carbon Dioxide 23 mmol/L (22-29); Chloride 109 mmol/L (96-108); Estimated Glomerular Filt Rate > 60; Glucose Random 116 mg/dL (60-115); Magnesium 2.1 mg/dL (1.6-2.6); Potassium 3.9 mmol/L (3.3-5.1); Sodium 140 mmol/L (135-145)
[2022-08-26 17:34] LABS: Thyroid Stimulating Hormone 0.74 uIU/mL (0.32-4.0); Vitamin D 25-OH Total 26.6 ng/mL (>30)
[2022-08-26 17:49] LABS: Folate > 20.0 ng/mL (> or = 4.0); Vitamin B12 856 pg/mL (200-900)
== END 2022-08-26 16:07 | disposition home or self-care (01) ==
LOC: HO.LAB 16:06
PROVIDERS: Visit Provider Anesthesiology Pain Medicine
DX: F41.9 Anxiety disorder, unspecified (principal)
CPT/HCPCS: 36415; 80053; 82306; 82607; 82746; 83036; 83735; 84443; 85025

== ENCOUNTER 2022-11-11 13:28 | Outpatient (AMB) | payer BC, SELFPAY ==
--- NOTE | 2022-11-11 13:29 | MHC.PC.OV ---
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 Neurology Epilepsy Physician Required: No Accompanied by: Self / Same As Patient Allergies No Known Allergies Allergy (Verified 11/11/22 13:35) Medication List - Last Reconciled 11/11/22 by Christine Pitts MD acamprosate 333 mg PO TID cholecalciferol (vitamin D3) 25 mcg PO DAILY cholecalciferol (vitamin D3) 25 mcg PO DAILY famotidine 20 mg PO DAILY hydroxyzine HCl 25 mg PO TID multivitamin (Daily-Danielle tablet) 1 tab PO DAILY thiamine mononitrate (vit B1) 100 mg PO DAILY trazodone 300 mg PO BEDTIME Tobacco use date assessed: 11/11/22 Dental Screening Dental Screen Date: 11/11/22 Did you have a dental visit in the last 12 months?: No Did you have a dental problem in the last 6 months where you did not have access to dental care?: No Was dental information given to patient?: Yes 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 Metabolic acidosis with pH of 7.28/duodenitis diagnosis of withdrawal from alcohol placed on Versed drip.. Patient is here for physical exam. Went to rehab in [facility]- sob May 24, 2022 [facility] Medical History (Updated 11/11/22 @ 14:12 by Christine Pitts MD) Hypokalemia Alcohol use disorder, severe, dependence Alcoholic ketoacidosis Alcohol withdrawal delirium Alcohol withdrawal syndrome Depressed Anxiety Surgical History (Updated 11/11/22 @ 13:56 by Christine Pitts MD) H/O hernia repair Family History (Updated 11/11/22 @ 13:58 by Christine Pitts MD) Mother No problems noted. Maternal Grandfather Pancreatic cancer Maternal Grandmother Breast cancer Social History (Updated 11/11/22 @ 13:59 by Christine Pitts MD) Household Members: None Housing: House Do you presently have visiting nurse or other home services: No Unable to assess alcohol history related to: Unable to respond Alcohol intake: former Patient Tobacco Use Status: Never used Tobacco e-Cigarette/Vaping Use: Never Used service: No Current occupational status: unemployed Cognitive needs: No Hearing needs: No Vision needs: No Questionnaire PHQ-9 Over the last 2 weeks, how often have you been bothered by any of the following problems? 1. Little interest or pleasure in doing things: not at all 2. Feeling down, depressed, or hopeless: not at all 3. Trouble falling or staying asleep, or sleeping too much: not at all 4. Feeling tired or having little energy: not at all 5. Poor appetite or overeating: not at all 6. Feeling bad about yourself - or that you are a failure or have let yourself or your family down: not at all 7. Trouble concentrating on things, such as reading the newspaper or watching television: not at all 8. Moving or speaking so slowly that other people could have noticed. Or the opposite - being so fidgety or restless that you have been moving around a lot more than usual: not at all 9. Thoughts that you would be better off or of hurting yourself in some way: not at all Total score: 0 Depression Screening Interpretation: Negative 41463 - PHQ-9 Billing: Yes Source: Developed by Drs. Sterling Arias, Tammy Fuentes, Daniel Soto and colleagues, with an educational shanthi from [employer] by [employer]. Thrive Questionnaire Date Thrive assessed: 11/11/22 I am a: Patient What is your living situation today?: I have a steady place to live Within the past 12 months, did the food you bought not last and you didn't have the money to get more?: Never true Within the past 12 months, did you worry whether your food would run out before you got money to buy more?: Never true Do you have trouble paying for medicines?: No Do you have trouble getting transportation to medical appointments?: No Do you have trouble paying your heating and electricity bill?: No Do you have trouble taking care of your child, family member or friend?: No Do you have trouble with day-to-day activities such as bathing, preparing meals, shopping, managing finances, etc.?: No Are you currently unemployed and looking for a job?: No Are you interested in more education?: No Please select the resources that you would like help with: None Currently or been in a relationship where the following occur: no concerns reported AUDIT C Alcohol Use Questionnaire (AUDIT-C) 1. How often do you have a drink containing alcohol?: Never 3. How often do you have six or more drinks on one occasion?: Never Total Score: 0 GAIL-7 AMB Questionnaire GAIL-7 Date GAIL - 7 assessed: 11/11/22 Feeling nervous, anxious, or on edge: 0 = Not at all Not being able to stop or control worryin = Not at all Worrying too much about different things: 0 = Not at all Trouble relaxin = Not at all Being so restless that it is hard to sit still: 0 = Not at all Becoming easily annoyed or irritable: 0 = Not at all Feeling afraid as if something awful might happen: 0 = Not at all Total GAIL-7 score (0-4 normal; 5-9 mild; 10-14 moderate; 15-21 severe): 0 Source: Developed by Drs. Sterling Arias, Tammy Fuentes, Daniel Soto and colleagues, with an educational shanthi from [employer]. GAIL-7 Assessment Billing GAIL-7 Assessment Tool: GAIL-7 Assessment 04676 Review of Systems Const Denies poor appetite and Denies weakness Eyes Denies no additional complaints ENT Reports Normal hearing present, Denies dizziness, Denies nasal congestion, Denies tinnitus and Denies sore throat Card Denies chest pain, Denies syncope, Denies rapid heart rate and Denies dyspnea Resp Denies cough and Denies dyspnea GI Denies change in stool character, Reports constipation, Denies diarrhea, Denies nausea and Denies vomiting Denies dysuria and Denies urinary frequency Neuro Reports Normal hearing present, Denies confusion, Denies dizziness, Denies syncope and Denies weakness Psych Denies confusion Physical exam (Primary Care) Vital Signs: Last Vital Signs Pulse 101 H 11/11/22 13:33 Resp 17 11/11/22 13:33 BP 104/68 11/11/22 13:33 Pulse Ox 98 11/11/22 13:33 Oxygen Delivery Method Room Air 11/11/22 13:33 BMI result Body Mass Index 27.8 Tobacco/Smoking Status: Tobacco use Status Tobacco use date assessed 11/11/22 11/11/22 13:45 Patient Tobacco Use Status Never used Tobacco 11/11/22 13:31 e-Cigarette/Vaping Use Never Used 11/11/22 13:45 PHQ-9: PHQ-9 Score PHQ-9: Total score 0 11/11/22 13:45 Depression Screening Interpretation: Negative Thrive Assessment: Date of Thrive Assessment Date Thrive assessed 11/11/22 11/11/22 13:45 Currently or been in a relationship where the following occur: no concerns reported Const General: No confusion Orientation/consciousness: No confusion HENMT Other: impacted cerumen R> L Head: Yes normocephalic Ears: external ears normal Face and sinus: Yes normal facial exam Mouth: moist mucous membranes Throat: Yes tonsils normal Eyes Conjunctivae: conjunctivae normal Pupils: Equal, round and reactive pupils present and Pupil accommodation reflex normal Direct Ophthalmoscopy: normal light reflex Neck Neck: No lymphadenopathy Thyroid: Thyroid normal Chest Chest palpation & inspection: normal inspection of the chest Resp Effort & Inspection: normal respiratory effort and no audible wheezes Auscultation: clear to auscultation bilaterally, no crackles, no wheezes and lung sounds not diminished Cardio Other: tachycardic but regular Rate: regular rate Rhythm: regular rhythm Peripheral pulses: radial pulses present and dorsalis pedis present GI Other: visual negative Palpation (GI): no masses Auscultation: normal bowel sounds and normoactive bowel sounds Rectal Exam - Male: Yes deferred Male General Exam: Yes normal external exam Skin General skin exam: no rashes or lesions noted Rashes: no rashes Neuro General: No confusion Cranial nerves: Yes Equal, round and reactive pupils present and Yes Normal hearing present Cognition (Neuro): normal cognition Gait exam (Neuro): Normal gait present Motor exam (neuro): 5/5 motor strength present throughout Deep tendon reflexes (DTR's): Right brachioradialis reflex intensity grade: 2+, Left brachioradialis reflex intensity grade: 2+, Right patellar reflex intensity grade: 2+ and Left patellar reflex intensity grade: 2+ Extrem General: No edema Assessment and Plan Assessment & Plan (1) Annual physical exam: Code(s): Z00.00 - Encounter for general adult medical examination without abnormal findings (2) GAIL (generalized anxiety disorder): Comment: Heriberto Fernandez M.D. Pychiatrist [phone] [email or web address] QO week- therapist Q week Suha Nava [phone] (10/2022) Code(s): F41.1 - Generalized anxiety disorder Plan: Continue with present medication discussed about counseling. (3) Alcohol use disorder, severe, dependence: Comment: seizure alcohol withdrawal 2011 Code(s): F10.20 - Alcohol dependence, uncomplicated Plan: Patient strongly advised to abstain! (4) Overweight (BMI 25.0-29.9): Code(s): E66.3 - Overweight Plan: Diet and exercise (5) GERD (gastroesophageal reflux disease): Code(s): K21.9 - Gastro-esophageal reflux disease without esophagitis (6) Impacted cerumen of both ears: Code(s): H61.23 - Impacted cerumen, bilateral (7) Alcoholic gastritis: Code(s): K29.20 - Alcoholic gastritis without bleeding Plan: Continue with famotidine. Coding Level of Care Code New Pt Prev Care 18-39yr(78626 Diagnoses Annual physical exam Z00.00 GAIL (generalized anxiety disorder) F41.1 Alcohol use disorder, severe, dependence F10.20 Overweight (BMI 25.0-29.9) E66.3 GERD (gastroesophageal reflux disease) K21.9 Impacted cerumen of both ears H61.23 Alcoholic gastritis K29.20 Additional Codes GAIL-7 Assessment Billing - GAIL-7 Assessment Tool: GAIL-7 Assessment [id number] ([id number])
[2022-11-11 13:33] VITALS: BP 104/68; PULSE 101; RESP 17; O2SAT 98; BMI 27.8
== END 2022-11-11 14:15 | disposition home or self-care (01) ==
PROVIDERS: PCP Internal Medicine; Visit Provider Internal Medicine
DX: Z00.00 Encounter for general adult medical examination without abnormal findings (principal); F10.20 Alcohol dependence, uncomplicated; K21.9 Gastro-esophageal reflux disease without esophagitis; K29.20 Alcoholic gastritis without bleeding; F41.1 Generalized anxiety disorder; E66.3 Overweight; H61.23 Impacted cerumen, bilateral
CPT/HCPCS: 99385

== ENCOUNTER 2023-05-12 14:05 | Outpatient (AMB) | payer BC, SELFPAY ==
[2023-05-12 14:12] VITALS: BP 140/84; PULSE 90; O2SAT 98; BMI 28.4
--- NOTE | 2023-05-12 14:12 | MHC.PC.OV ---
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: Present Accompanied by: Spouse Allergies No Known Allergies Allergy (Verified 05/12/23 14:13) Medication List - Last Reconciled 05/12/23 by Christine Pitts MD acamprosate 333 mg PO BID cholecalciferol (vitamin D3) 25 mcg PO DAILY famotidine 20 mg PO DAILY hydroxyzine HCl 25 mg PO TID multivitamin (Daily-Danielle tablet) 1 tab PO DAILY thiamine mononitrate (vit B1) 100 mg PO DAILY trazodone 300 mg PO BEDTIME Tobacco use date assessed: 05/12/23 Dental Screening Dental Screen Date: 05/12/23 Did you have a dental visit in the last 12 months?: No Did you have a dental problem in the last 6 months where you did not have access to dental care?: No Was dental information given to patient?: Patient has dentist HPI 6mth f/u HPI Details 38-year-old overweight male with generalized anxiety disorder alcohol use disorder GERD alcoholic gastritis coming in for follow-up last seen in October 2022. Patient's last blood work was July 2022 tapering acamprosate and was advised to get LFT by psychiatrist. 2 years now off alcohol!!! PFSH Medical History (Updated 11/11/22 @ 14:12 by Christine Pitts MD) Hypokalemia Alcohol use disorder, severe, dependence Alcoholic ketoacidosis Alcohol withdrawal delirium Alcohol withdrawal syndrome Depressed Anxiety Surgical History H/O hernia repair Family History (Updated 05/12/23 @ 14:13 by MARY Loya) Mother No problems noted. Maternal Grandfather Pancreatic cancer Maternal Grandmother Breast cancer Social History (Updated 11/11/22 @ 13:59 by Christine Pitts MD) Household Members: None Housing: House Do you presently have visiting nurse or other home services: No Unable to assess alcohol history related to: Unable to respond Alcohol intake: former Patient Tobacco Use Status: Never used Tobacco e-Cigarette/Vaping Use: Never Used service: No Current occupational status: unemployed Cognitive needs: No Hearing needs: No Vision needs: Yes Questionnaire PHQ-9 Over the last 2 weeks, how often have you been bothered by any of the following problems? 1. Little interest or pleasure in doing things: not at all 2. Feeling down, depressed, or hopeless: not at all 3. Trouble falling or staying asleep, or sleeping too much: not at all 4. Feeling tired or having little energy: not at all 5. Poor appetite or overeating: not at all 6. Feeling bad about yourself - or that you are a failure or have let yourself or your family down: not at all 7. Trouble concentrating on things, such as reading the newspaper or watching television: not at all 8. Moving or speaking so slowly that other people could have noticed. Or the opposite - being so fidgety or restless that you have been moving around a lot more than usual: not at all 9. Thoughts that you would be better off or of hurting yourself in some way: not at all Total score: 0 Depression Screening Interpretation: Negative Depression Screening Done: Yes 06523 - PHQ-9 Billing: Yes Source: Developed by Drs. Sterling Arias, Tammy Fuentes, Daniel Soto and colleagues, with an educational shanthi from [employer]. Thrive Questionnaire Date Thrive assessed: 05/12/23 I am a: Patient What is your living situation today?: I have a steady place to live Within the past 12 months, did the food you bought not last and you didn't have the money to get more?: Never true Within the past 12 months, did you worry whether your food would run out before you got money to buy more?: Never true Do you have trouble paying for medicines?: No Do you have trouble getting transportation to medical appointments?: No Do you have trouble paying your heating and electricity bill?: No Do you have trouble taking care of your child, family member or friend?: No Do you have trouble with day-to-day activities such as bathing, preparing meals, shopping, managing finances, etc.?: No Are you currently unemployed and looking for a job?: No Are you interested in more education?: No Please select the resources that you would like help with: None THRIVE Score: 0 AUDIT C Alcohol Use Questionnaire (AUDIT-C) 1. How often do you have a drink containing alcohol?: Never 3. How often do you have six or more drinks on one occasion?: Never Total Score: 0 GAIL-7 AMB Questionnaire GAIL-7 Date GAIL - 7 assessed: 05/12/23 Feeling nervous, anxious, or on edge: 0 = Not at all Not being able to stop or control worryin = Not at all Worrying too much about different things: 0 = Not at all Trouble relaxin = Not at all Being so restless that it is hard to sit still: 0 = Not at all Becoming easily annoyed or irritable: 0 = Not at all Feeling afraid as if something awful might happen: 0 = Not at all Total GAIL-7 score (0-4 normal; 5-9 mild; 10-14 moderate; 15-21 severe): 0 Source: Developed by Drs. Sterling Arias, Tammy Fuentes, Daniel Soto and colleagues, with an educational shanthi from [employer]. Physical exam (Primary Care) Vital Signs: Last Vital Signs Pulse 90 05/12/23 14:12 BP 140/84 H 05/12/23 14:12 Pulse Ox 98 05/12/23 14:12 Oxygen Delivery Method Room Air 05/12/23 14:12 BMI result Body Mass Index 28.4 Tobacco/Smoking Status: Tobacco use Status Tobacco use date assessed 05/12/23 05/12/23 14:18 Patient Tobacco Use Status Never used Tobacco 05/12/23 14:18 e-Cigarette/Vaping Use Never Used 05/12/23 14:18 PHQ-9: PHQ-9 Score PHQ-9: Total score 0 05/12/23 14:31 Depression Screening Interpretation: Negative Thrive Assessment: Date of Thrive Assessment Date Thrive assessed 05/12/23 05/12/23 14:18 Const General: alert; No acute distress Eyes Conjunctivae: conjunctivae normal Resp Auscultation: clear to auscultation bilaterally Cardio Rate: regular rate Rhythm: regular rhythm GI Inspection: Yes normal to inspection Extrem General: Yes normal to inspection and No edema Immunizations Boostrix Tdap 2.5 Lf unit-8 mcg-5 Lf/0.5 mL intramuscular syringe Performing Provider: Christine Pitts MD [facility] [place] [facility] Administered by: Loly Morel CMA on 05/12/23 14:34 Dose Route Admin Location Dispensed Lot Number Expiration Date NDC Radiologist [facility] 0.5 mL IM Left Deltoid 0.5 mL [id number] 07/01/25 [id number] [employer]LA[employer]OSM[employer] VIS Given Date VIS Provided VIS Publication Date 05/12/23 Single Vaccine 20 Eligibility Eligibility Date Funding Source Not [facility] Eligible 05/12/23 Private Assessment and Plan Assessment & Plan (1) Overweight (BMI 25.0-29.9): Code(s): E66.3 - Overweight Plan: Diet and exercise (2) GERD (gastroesophageal reflux disease): Code(s): K21.9 - Gastro-esophageal reflux disease without esophagitis Plan: Avoid the foods that causes that usually spicy foods, tomato products, juices, coffee, soda and foods that your sensitive to. After eating do not lie down, allow 3-4 hours before in lie down. And keep the head of bed above 30 degrees to avoid the acid from going up. On famotidine (3) GAIL (generalized anxiety disorder): Comment: Heriberto Fernandez M.D. Pychiatrist [phone] [email or web address] QO week- therapist Q week Suha Nava [phone] (10/2022) Code(s): F41.1 - Generalized anxiety disorder Plan: Continue with counseling and therapy (4) Major depressive disorder, recurrent severe without psychotic features: Code(s): F33.2 - Major depressive disorder, recurrent severe without psychotic features Plan: Continue with counseling and therapy (5) Alcohol use disorder, severe, dependence: Comment: seizure alcohol withdrawal 2011 Code(s): F10.20 - Alcohol dependence, uncomplicated Plan: In advised to taper acamprosate and will need blood work. Orders: Orders Free T4 (Free Thyroxine) Today K21.9 - Gastro-esophageal reflux disease without esophagitis Lipid Panel Today E78.00 - Pure hypercholesterolemia, unspecified, K21.9 - Gastro-esophageal reflux disease without esophagitis Complete Blood Count Auto Diff Today K21.9 - Gastro-esophageal reflux disease without esophagitis Comprehensive Met. Panel Today K21.9 - Gastro-esophageal reflux disease without esophagitis Thyroid Stimulating Hormone Today K21.9 - Gastro-esophageal reflux disease without esophagitis Vitamin B12 and Folate Today K21.9 - Gastro-esophageal reflux disease without esophagitis TDaP Immunization Today Z23 - Encounter for immunization Coding Level of Care Code Est Pt Level 4 (56434) Diagnoses Overweight (BMI 25.0-29.9) E66.3 GERD (gastroesophageal reflux disease) K21.9 GAIL (generalized anxiety disorder) F41.1 Major depressive disorder, recurrent severe without psychotic features F33.2 Alcohol use disorder, severe, dependence F10.20
== END 2023-05-12 14:41 | disposition home or self-care (01) ==
PROVIDERS: PCP Internal Medicine; Visit Provider Internal Medicine
DX: K21.9 Gastro-esophageal reflux disease without esophagitis (principal); F10.20 Alcohol dependence, uncomplicated; F33.2 Major depressive disorder, recurrent severe without psychotic features; Z23 Encounter for immunization; E66.3 Overweight; F41.1 Generalized anxiety disorder
CPT/HCPCS: 90471; 90715; 99214

== ENCOUNTER 2023-06-19 11:36 | Outpatient (REF) | payer BC, SELFPAY ==
[2023-06-19 11:47] LABS: MANUAL DIFF FLAG NO
[2023-06-19 11:58] LABS: Basophils Percent Auto 0.8 % (0-2); Eosinophils Absolute Auto 0.1 X10*3/uL (0.0-0.4); Eosinophils Percent Auto 1.9 % (0-4); Hematocrit 44.6 % (42.0-52.0); Hemoglobin 15.1 g/dl (14.0-18.0); Lymphocytes Absolute Auto 1.8 X10*3/uL (1.2-4.9); Lymphocytes Percent Auto 47.6 % (20-40); Mean Corpuscular HGB Conc 33.9 g/dl (31.0-36.0); Mean Corpuscular Hemoglobin 29.3 pg (27.0-33.0); Mean Corpuscular Volume 86.4 fL (80.0-98.0); Monocytes Absolute Auto 0.7 X10*3/uL (0.1-1.2); Monocytes Percent Auto 17.7 % (2-11); Neutrophils Absolute Auto 1.2 x10*3/uL (2.0-8.3); Platelet Count 295 X10*3/uL (160-400); Red Blood Count 5.16 X10*6/uL (4.60-5.80); Red Cell Distribution Width 12.8 % (11.0-16.0); White Blood Count 3.7 X10*3/uL (4.8-10.8)
[2023-06-19 12:39] LABS: Alanine Aminotransferase 17 U/L (0-40); Albumin Level 4.6 g/dL (3.5-5.0); Alkaline Phosphatase 51 U/L (39-117); Anion Gap 11 (12-20); Aspartate Amino Transferase 17 U/L (5-37); Bilirubin Total 0.4 mg/dL (0.0-1.0); Blood Urea Nitrogen 11 mg/dL (9-16); Calcium 9.5 mg/dL (8.4-10.2); Carbon Dioxide 26 mmol/L (22-29); Chloride 107 mmol/L (96-108); Cholesterol 245 mg/dL (<200); Estimated Glomerular Filt Rate > 60; Glucose Random 112 mg/dL (60-115); HDL Cholesterol 39 mg/dL (>40); LDL Cholesterol Calculated 179 mg/dL (<100); Potassium 4.4 mmol/L (3.3-5.1); Sodium 140 mmol/L (135-145); Total Protein 7.2 g/dL (6.5-8.0); Triglycerides 135 mg/dL (<150)
[2023-06-19 12:48] LABS: Free T4 (Free Thyroxine) 0.97 ng/dL (0.71-1.85); Thyroid Stimulating Hormone 2.13 uIU/mL (0.32-4.0)
[2023-06-19 13:33] LABS: Folate 17.8 ng/mL (> or = 4.0); Vitamin B12 1105 pg/mL (200-900)
== END 2023-06-19 11:37 | disposition home or self-care (01) ==
LOC: HO.LAB 11:36
PROVIDERS: PCP Internal Medicine; Visit Provider Internal Medicine
DX: K21.9 Gastro-esophageal reflux disease without esophagitis (principal); E78.00 Pure hypercholesterolemia, unspecified
CPT/HCPCS: 36415; 80053; 80061; 82607; 82746; 84439; 84443; 85025

== ENCOUNTER 2023-11-13 13:37 | Outpatient (AMB) | payer BC, SELFPAY ==
[2023-11-13 14:09] VITALS: BP 106/50; PULSE 118; O2SAT 98; BMI 28.1
--- NOTE | 2023-11-13 14:09 | A.OFFPC_ITS ---
Vital Signs 11/13/23 14:09 11/13/23 14:31 Height 5 ft 10 in Weight 196 lb BMI 28.1 BP 106/50 L 110/80 Blood Pressure Location Lt brachial Lt brachial Position Sitting Pulse 118 H Pulse Source Pulse Oximeter Pulse Oximetry (%) 98 Oxygen Delivery Method Room Air Intake Visit Reasons: PE Intake Note: Patient is here today for a physical. Recreational Aide Required: No Accompanied by: Self / Same As Patient Allergies No Known Allergies Allergy (Verified 11/13/23 14:10) Medication List - Last Reconciled 11/13/23 by Christine Pitts MD cholecalciferol (vitamin D3) 25 mcg PO DAILY famotidine 20 mg PO DAILY hydroxyzine HCl 25 mg PO TID multivitamin (Daily-Danielle tablet) 1 tab PO DAILY trazodone 300 mg PO BEDTIME Tobacco use date assessed: 05/12/23 Dental Screening Dental Screen Date: 05/12/23 HPI PE HPI Details 38-year-old overweight male with GERD, g eneralized anxiety disorder alcohol use disorder hypercholesterolemia coming in for physical exam. Last seen in April 2023. complains of having impacted [facility] L [facility] Medical History (Updated 11/13/23 @ 14:38 by Christine Pitts MD) Major depressive disorder, recurrent severe without psychotic features Hypokalemia Alcohol use disorder, severe, dependence Alcoholic ketoacidosis Alcohol withdrawal delirium Alcohol withdrawal syndrome Depressed Anxiety Surgical History H/O hernia repair Family History Mother No problems noted. Maternal Grandfather Pancreatic cancer Maternal Grandmother Breast cancer Social History (Updated 11/13/23 @ 14:34 by Christine Pitts MD) Household Members: None Housing: House Do you presently have visiting nurse or other home services: No Unable to assess alcohol history related to: Unable to respond Alcohol intake: former Comment: stopped April 2021 Patient Tobacco Use Status: Never used Tobacco e-Cigarette/Vaping Use: Never Used service: No Current occupational status: unemployed Cognitive needs: No Hearing needs: No Vision needs: Yes Questionnaire PHQ-9 Over the last 2 weeks, how often have you been bothered by any of the following problems? 1. Little interest or pleasure in doing things: not at all 2. Feeling down, depressed, or hopeless: not at all 3. Trouble falling or staying asleep, or sleeping too much: not at all 4. Feeling tired or having little energy: not at all 5. Poor appetite or overeating: not at all 6. Feeling bad about yourself - or that you are a failure or have let yourself or your family down: not at all 7. Trouble concentrating on things, such as reading the newspaper or watching television: not at all 8. Moving or speaking so slowly that other people could have noticed. Or the opposite - being so fidgety or restless that you have been moving around a lot more than usual: not at all 9. Thoughts that you would be better off or of hurting yourself in some way: not at all Total score: 0 Source: Developed by Drs. Sterling Arias, Tammy Fuentes, Daniel Soto and colleagues, with an educational shanthi from [employer]. Thrive Questionnaire Date Thrive assessed: 11/11/23 I am a: Patient What is your living situation today?: I have a steady place to live Within the past 12 months, did the food you bought not last and you didn't have the money to get more?: Never true Within the past 12 months, did you worry whether your food would run out before you got money to buy more?: Never true Do you have trouble paying for medicines?: No Do you have trouble getting transportation to medical appointments?: No Do you have trouble paying your heating and electricity bill?: No Do you have trouble taking care of your child, family member or friend?: No Do you have trouble with day-to-day activities such as bathing, preparing meals, shopping, managing finances, etc.?: No Are you currently unemployed and looking for a job?: No Are you interested in more education?: No Please select the resources that you would like help with: None Currently or been in a relationship where the following occur: No concerns reported THRIVE Score: 0 AUDIT C Alcohol Use Questionnaire (AUDIT-C) 1. How often do you have a drink containing alcohol?: Never 3. How often do you have six or more drinks on one occasion?: Never Total Score: 0 GAIL-7 AMB Questionnaire GAIL-7 Date GAIL - 7 assessed: 05/12/23 Feeling nervous, anxious, or on edge: 0 = Not at all Not being able to stop or control worryin = Not at all Worrying too much about different things: 0 = Not at all Trouble relaxin = Not at all Being so restless that it is hard to sit still: 0 = Not at all Becoming easily annoyed or irritable: 0 = Not at all Feeling afraid as if something awful might happen: 0 = Not at all Total GAIL-7 score (0-4 normal; 5-9 mild; 10-14 moderate; 15-21 severe): 0 Source: Developed by Drs. Sterling Arias, Tammy Fuentes, Daniel Soto and colleagues, with an educational shanthi from [employer]. Review of Systems Const Denies poor appetite and Denies weakness Eyes Denies no additional complaints ENT Reports Normal hearing present, Denies dizziness, Denies nasal congestion, De nies tinnitus and Denies sore throat Card Denies chest pain, Denies syncope, Denies rapid heart rate and Denies dyspnea Resp Denies cough and Denies dyspnea GI Denies change in stool character, Reports constipation, Denies diarrhea, Denies nausea and Denies vomiting Denies dysuria and Denies urinary frequency Neuro Reports Normal hearing present, Denies confusion, Denies dizziness, Denies syncope and Denies weakness Psych Denies confusion Physical exam (Primary Care) Vital Signs: Last Vital Signs Pulse 118 H 11/13/23 14:09 BP 106/50 L 11/13/23 14:09 Pulse Ox 98 11/13/23 14:09 Oxygen Delivery Method Room Air 11/13/23 14:09 BMI result Body Mass Index 28.1 Tobacco/Smoking Status: Tobacco use Status Tobacco use date assessed 05/12/23 11/13/23 14:11 Patient Tobacco Use Status Never used Tobacco 11/13/23 14:11 e-Cigarette/Vaping Use Never Used 11/13/23 14:11 PHQ-9: PHQ-9 Score PHQ-9: Total score 0 11/13/23 14:11 Thrive Assessment: Date of Thrive Assessment Date Thrive assessed 11/11/23 11/13/23 14:11 Currently or been in a relationship where the following occur: No concerns reported Const General: No confusion Orientation/consciousness: No confusion HENOK Head: Yes normocephalic Ears: external ears normal and TM's normal bilaterally Face and sinus: Yes normal facial exam Mouth: moist mucous membranes Throat: Yes tonsils normal Eyes Conjunctivae: conjunctivae normal Pupils: Equal, round and reactive pupils present and Pupil accommodation reflex normal Direct Ophthalmoscopy: normal light reflex Neck Neck: No lymphadenopathy Thyroid: Thyroid normal Chest Chest palpation & inspection: normal inspection of the chest Resp Effort & Inspection: normal respiratory effort and no audible wheezes Auscultation: clear to auscultation bilaterally, no crackles, no wheezes and lung sounds not diminished Cardio Rate: regular rate Rhythm: regular rhythm Peripheral pulses: radial pulses present and dorsalis pedis present GI Palpation (GI): no masses Auscultation: normal bowel sounds and normoactive bowel sounds Rectal Exam - Male: Yes deferred Skin General skin exam: no rashes or lesions noted Rashes: no rashes Neuro General: No confusion Cranial nerves: Yes Equal, round and reactive pupils present and Yes Normal hearing present Cognition (Neuro): normal cognition Gait exam (Neuro): Normal gait present Motor exam (neuro): 5/5 motor strength present throughout Deep tendon reflexes (DTR's): Right brachioradialis reflex intensity grade: 2+, Left brachioradialis reflex intensity grade: 2+, Right patellar reflex intensity grade: 2+ and Left patellar reflex intensity grade: 2+ Extrem General: No edema Assessment and Plan Assessment & Plan (1) Annual physical exam: Code(s): Z00.00 - Encounter for general adult medical examination without abnormal findings Plan: Patient is advised to eat healthy, keep well hydrated, keep active and have adequate sleep. (2) Hypercholesterolemia: Code(s): E78.00 - Pure hypercholesterolemia, unspecified Plan: Avoid fried foods, chicken skin, eggs, butter margarine, pastries and meat. Be it pork or beef they have a lot of cholesterol LDL goal of less than 130 and triglyceride of less than 150. (3) Overweight (BMI 25.0-29.9): Code(s): E66.3 - Overweight Plan: Diet and exercise (4) GAIL (generalized anxiety disorder): Comment: Heriberto Fernandez M.D. Pychiatrist [id number] QO week- therapist Q week Suha Nava [id number] (10/2022) Code(s): F41.1 - Generalized anxiety disorder Plan: Continue with present medication (5) GERD (gastroesophageal reflux disease): Code(s): K21.9 - Gastro-esophageal reflux disease without esophagitis Plan: Avoid the foods that causes that usually spicy foods, tomato products, juices, coffee, soda and foods that your sensitive to. After eating do not lie down, allow 3-4 hours before in lie down. And keep the head of bed above 30 degrees to avoid the acid from going up. (6) Alcohol use disorder, severe, dependence: Comment: seizure alcohol withdrawal 2011 Code(s): F10.20 - Alcohol dependence, uncomplicated (7) Impacted cerumen of both ears: Code(s): H61.23 - Impacted cerumen, bilateral (8) Impaired fasting blood sugar: Code(s): R73.01 - Impaired fasting glucose Orders: Orders Comprehensive Met. Panel 6 Months R73.01 - Impaired fasting glucose Lipid Panel 6 Months E78.00 - Pure hypercholesterolemia, unspecified Hemoglobin A1c 6 Months R73.01 - Impaired fasting glucose Complete Blood Count Auto Diff 6 Months E78.00 - Pure hypercholesterolemia, unspecified Vitamin B12 and Folate 6 Months E78.00 - Pure hypercholesterolemia, unspecified Coding Level of Care Code Est Pt Prev Care 40-64y(74952) Diagnoses Annual physical exam Z00.00 Hypercholesterolemia E78.00 Overweight (BMI 25.0-29.9) E66.3 GAIL (generalized anxiety disorder) F41.1 GERD (gastroesophageal reflux disease) K21.9 Alcohol use disorder, severe, dependence F10.20 Impacted cerumen of both ears H61.23 Impaired fasting blood sugar R73.01
[2023-11-13 14:31] VITALS: BP 110/80
== END 2023-11-13 14:55 | disposition home or self-care (01) ==
PROVIDERS: PCP Internal Medicine; Visit Provider Internal Medicine
DX: Z00.00 Encounter for general adult medical examination without abnormal findings (principal); E78.00 Pure hypercholesterolemia, unspecified; E66.3 Overweight; F41.1 Generalized anxiety disorder; K21.9 Gastro-esophageal reflux disease without esophagitis; F10.20 Alcohol dependence, uncomplicated; H61.23 Impacted cerumen, bilateral; R73.01 Impaired fasting glucose

== ENCOUNTER → 2023-11-13 13:37 | Outpatient (BNVA) | payer BC, SELFPAY | PROVIDERS: PCP Internal Medicine; Visit Provider Internal Medicine | DX: Z00.00 Encounter for general adult medical examination without abnormal findings (principal); E78.00 Pure hypercholesterolemia, unspecified; E66.3 Overweight; F41.1 Generalized anxiety disorder; K21.9 Gastro-esophageal reflux disease without esophagitis; F10.20 Alcohol dependence, uncomplicated; H61.23 Impacted cerumen, bilateral; R73.01 Impaired fasting glucose | CPT/HCPCS: 96127 ==

== ENCOUNTER 2023-11-17 11:38 | Outpatient (AMB) | payer BC, SELFPAY ==
--- NOTE | 2023-11-17 11:41 | MHC.PC.OV ---
Vital Signs 11/17/23 11:42 Height 5 ft 10 in Weight 194 lb BMI 27.8 BP 130/76 Blood Pressure Location Lt brachial Position Sitting Pulse 88 Pulse Source Pulse Oximeter Pulse Oximetry (%) 97 Oxygen Delivery Method Room Air Intake Visit Reasons: ear irrigation Intake Note: Pt reports having a low pitch sound in his left ear after trying to clean it himself with water. When he was cleaning it he stated it hurt but it doesn't necessarily hurt right now. 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 Accompanied by: Spouse Allergies No Known Allergies Allergy (Verified 11/17/23 11:44) Medication List - Last Reconciled 11/17/23 by Korin Gaviria PA-C cholecalciferol (vitamin D3) 25 mcg PO DAILY famotidine 20 mg PO DAILY hydroxyzine HCl 25 mg PO TID multivitamin (Daily-Danielle tablet) 1 tab PO DAILY trazodone 300 mg PO BEDTIME Tobacco use date assessed: 05/12/23 Dental Screening Dental Screen Date: 05/12/23 HPI ear irrigation HPI Details 38-year-old male with past medical history generalized anxiety disorder, alcohol use disorder, GERD, hypercholesterolemia, impaired glucose tolerance last seen by Dr. Pitts coming in for acute problem. Patient states he has been having ringing in the left ear for few weeks now. The ringing has improved over the last week however still present. Denies any symptoms in the right ear. Denies any pain, fevers, decreased hearing, or any other symptoms. COUNTS INCLUDE 234 BEDS AT THE [facility] Medical History (Updated 11/17/23 @ 12:26 by Korin Gaviria PA-C) Major depressive disorder, recurrent severe without psychotic features Hypokalemia Alcohol use disorder, severe, dependence Alcoholic ketoacidosis Alcohol withdrawal delirium Alcohol withdrawal syndrome Depressed Anxiety Surgical History H/O hernia repair Family History Mother No problems noted. Maternal Grandfather Pancreatic cancer Maternal Grandmother Breast cancer Social History (Updated 11/13/23 @ 14:34 by Christine Pitts MD) Household Members: None Housing: House Do you presently have visiting nurse or other home services: No Unable to assess alcohol history related to: Unable to respond Alcohol intake: former Comment: stopped April 2021 Patient Tobacco Use Status: Never used Tobacco Tobacco use type: Cigarette e-Cigarette/Vaping Use: Never Used service: No Current occupational status: unemployed Cognitive needs: No Hearing needs: No Vision needs: Yes Questionnaire Thrive Questionnaire Date Thrive assessed: 11/11/23 I am a: Patient What is your living situation today?: I have a steady place to live Within the past 12 months, did the food you bought not last and you didn't have the money to get more?: Never true Within the past 12 months, did you worry whether your food would run out before you got money to buy more?: Never true Do you have trouble paying for medicines?: No Do you have trouble getting transportation to medical appointments?: No Do you have trouble paying your heating and electricity bill?: No Do you have trouble taking care of your child, family member or friend?: No Do you have trouble with day-to-day activities such as bathing, preparing meals, shopping, managing finances, etc.?: No Are you currently unemployed and looking for a job?: No Are you interested in more education?: No Please select the resources that you would like help with: None Currently or been in a relationship where the following occur: No concerns reported THRIVE Score: 0 GAIL-7 AMB Questionnaire GAIL-7 Date GAIL - 7 assessed: 05/12/23 Source: Developed by Drs. Sterling Arias, Tammy Fuentes, Daniel Soto and colleagues, with an educational shanthi from [employer]. Review of Systems Const Denies body aches, Denies chills and Denies fever(s) Eyes Reports no additional complaints ENT Denies otalgia, Denies nasal congestion, Denies nasal discharge, Reports tinnitus (Left ear), Denies sinus pressure and Denies sore throat Card Denies chest pain and Denies dyspnea Resp Denies dyspnea GI Reports no additional complaints Physical exam (Primary Care) Vital Signs: Last Vital Signs Pulse 88 11/17/23 11:42 BP 130/76 11/17/23 11:42 Pulse Ox 97 11/17/23 11:42 Oxygen Delivery Method Room Air 11/17/23 11:42 BMI result Body Mass Index 27.8 Tobacco/Smoking Status: Tobacco use Status Tobacco use date assessed 05/12/23 11/17/23 11:46 Patient Tobacco Use Status Never used Tobacco 11/17/23 11:46 Tobacco use type Cigarette 11/17/23 11:46 e-Cigarette/Vaping Use Never Used 11/17/23 11:46 Thrive Assessment: Date of Thrive Assessment Date Thrive assessed 11/11/23 11/17/23 11:46 Currently or been in a relationship where the following occur: No concerns reported Const General: cooperative, healthy appearing, comfortable and no acute distress Orientation/consciousness: patient oriented x3 HENMT Head: Yes normocephalic Ears: hearing grossly normal bilaterally, TM normal on the right, Abnormal EAC present excessive cerumen on the right and TM abnormal wth effusion serous on the left General nose exam: Normal external nose present Eyes General: appearance normal, both eyes and all related structures Conjunctivae: conjunctivae normal Neck Neck: Yes full ROM and Yes no lymphadenopathy Resp Effort & Inspection: normal respiratory effort Cardio Rate: regular rate Rhythm: regular rhythm Skin General skin exam: no rashes or lesions noted Neuro General: patient oriented x3 Gait exam (Neuro): Normal gait present Extrem General: Yes normal to inspection, Yes full ROM and No edema Psych Affect: normal affect Attitude: cooperative Insight: Good insight present (Psych) Judgement: Good judgement present (Psych) Office Procedures Cerumen Removal From which ear canal was the cerumen removed: right Removal: cerumen loop/spoon Notes: patient tolerated procedure well, no complications and ear canal clear [id number] Wax Removal by Spoon/Curette Assessment and Plan Assessment & Plan (1) Impacted cerumen: Code(s): H61.20 - Impacted cerumen, unspecified ear Plan: Patient did have excessive cerumen of the right ear which was successfully removed with curette. Patient tolerated the procedure well and TM was visualized as intact with well aerated middle ear spaces. (2) Serous otitis media: Code(s): H65.90 - Unspecified nonsuppurative otitis media, unspecified ear Plan: Left ear did show evidence of fluid behind the TM. Recommended patient using [id number] allergy medication as well as Flonase for symptoms and follow up if they do not improve in the next 2-3 weeks. Also discussed with patient if he begins to have pain in that ear or fevers to follow up sooner. Plan This note was constructed using voice recognition software. While every effort has been made to ensure accuracy and chemical educator, still areas may have been included sometimes these areas may affect the content or meeting of the given symptoms. Total time spent caring for the patient today was 20 minutes. This includes time spent before the visit reviewing the chart, time spent during the visit, and time spent after the visit and documentation. Medications: New fluticasone propionate 50 mcg/actuation (Allergy Relief (fluticasone)) administer into each nostril 1 spray intranasal DAILY 16 grams 0RF Coding Level of Care Code Est Pt Level 3 (59831) Diagnoses Impacted cerumen H61.20 Serous otitis media H65.90 CPT Codes Office Procedure - CPT: 04498-Wdm Wax Removal by Spoon/Curette ([id number])
[2023-11-17 11:42] VITALS: BP 130/76; PULSE 88; O2SAT 97; BMI 27.8
== END 2023-11-17 12:02 | disposition home or self-care (01) ==
PROVIDERS: PCP Internal Medicine
DX: H65.92 Unspecified nonsuppurative otitis media, left ear (principal); H61.21 Impacted cerumen, right ear

== ENCOUNTER → 2023-11-17 11:38 | Outpatient (BNVA) | payer BC, SELFPAY | PROVIDERS: PCP Internal Medicine | DX: H61.21 Impacted cerumen, right ear (principal); H65.92 Unspecified nonsuppurative otitis media, left ear | CPT/HCPCS: 69210 ==

== ENCOUNTER 2024-03-07 11:52 | Outpatient (REF) | payer BC, SELFPAY ==
[2024-03-07 12:35] LABS: Hematocrit 42.9 % (42.0-52.0); Hemoglobin 14.8 g/dl (14.0-18.0); Mean Corpuscular HGB Conc 34.5 g/dl (31.0-36.0); Mean Corpuscular Hemoglobin 29.9 pg (27.0-33.0); Mean Corpuscular Volume 86.7 fL (80.0-98.0); Mean Platelet Volume 9.4 fL (9.4-12.4); Platelet Count 285 X10*3/uL (160-400); Red Blood Count 4.95 X10*6/uL (4.60-5.80); Red Cell Distribution Width 12.9 % (11.0-16.0); White Blood Count 3.6 X10*3/uL (4.8-10.8)
[2024-03-07 13:51] LABS: Alanine Aminotransferase 20 U/L (0-40); Albumin Level 4.6 g/dL (3.5-5.0); Alkaline Phosphatase 48 U/L (39-117); Anion Gap 11 (12-20); Aspartate Amino Transferase 25 U/L (5-37); Bilirubin Total 0.6 mg/dL (0.0-1.0); Blood Urea Nitrogen 8 mg/dL (9-16); Calcium 9.3 mg/dL (8.4-10.2); Carbon Dioxide 24 mmol/L (22-29); Chloride 108 mmol/L (96-108); Cholesterol 242 mg/dL (<200); Estimated Glomerular Filt Rate > 60; Glucose Random 102 mg/dL (60-115); HDL Cholesterol 34 mg/dL (>40); LDL Cholesterol Calculated 177 mg/dL (<100); Potassium 3.8 mmol/L (3.3-5.1); Sodium 139 mmol/L (135-145); Total Protein 7.1 g/dL (6.5-8.0); Triglycerides 155 mg/dL (<150)
== END 2024-03-07 11:53 | disposition home or self-care (01) ==
LOC: HO.LAB 11:52
PROVIDERS: PCP Internal Medicine; Visit Provider Internal Medicine
DX: Z00.00 Encounter for general adult medical examination without abnormal findings (principal)
CPT/HCPCS: 36415; 80053; 80061; 85027